=== PATIENT | female | born 1995 | race Caucasian/White ===

== ENCOUNTER 2016-11-11 17:04 | Emergency (ER) | payer MEDICAID ==
[~2016-11-11] VITALS: Ht 167.6 cm; Wt 61.2 kg
[~2016-11-11 17:04] MED LIST: CEPH-507 PO; FERR325T5 PO; PREN1TAB86 PO
--- OUTSIDE RECORDS SUMMARY | 2016-11-11 17:08 | XMS REPORT | Continuity of Care Document ---
Author Author [facility] Organization [facility] Address Unknown Phone Unavailable Care Team Providers Care Pick Remover Name Role Phone BRYAN DU MD PCP Insurance Providers Payer Name Policy Number Subscriber Name Relationship [facility] [id number] Shayne Crawford Self / Same As Patient Advance Directives Directive Response Recorded Date/Time Advance Directives No 03/15/16 10:09pm Health Care Power of Lapping Machine Operator No 03/15/16 10:09pm Organ Donor No 03/15/16 10:09pm Resuscitation Status Full Code 03/15/16 10:09pm Problems Active Problems Medical Problem Onset Date Status Urinary tract infection Unknown Acute Medications Current Home Medications Medication Dose Units Route Directions Days/Qty Instructions Start Date Vit W-Ca,Fe,Fa(<1 Mg) 1 Each 1 Each Oral Daily 03/15/16 Ferrous Sulfate 325 Mg 325 Mg Oral Twice A Day 03/15/16 Past Home Medications Medication Directions Ordered Status Cephalexin 500 Mg Capsule, 500 Mg Oral Three Times A Day 08/14/15 Discontinued Social History Social History Problem Response Recorded Date/Time Alcohol Use Denies Use 08/14/2015 6:51pm Recreational Drug Use No 08/14/2015 6:51pm Recent Foreign Travel No 03/15/2016 10:12pm Smoking Status Former Smoker 03/15/2016 10:10pm Query Response Start Date Stop Date Smoking Status Former Smoker Hospital Discharge Instructions No hospital discharge instructions. Plan of Care Discharge Date 03/15/16 11:30pm Instructions/Education Provided OB OUTPATIENT DISCHARGE Prescriptions See Medication Section Functional Status No functional status results. Allergies, Adverse Reactions, Alerts No known allergies. Immunizations Name Given Type Tetanus Booster (TDap) Unknown Historical Vital Signs Acute Vital Signs Vital Response Date/Time Temperature (Fahrenheit) 98.3 degrees F (97.6 - 99.5) 03/15/2016 10:02pm Temperature (Calculated Celsius) 36.66322 degrees C (36.4 - 37.5) 03/15/2016 10:02pm Temperature Source Tympanic 03/15/2016 10:02pm Pulse Rate (adult) 71 bpm (60 - 90) 03/15/2016 10:43pm Respiratory Rate 18 bpm (12 - 24) 03/15/2016 10:43pm Blood Pressure 143/72 mm Hg 03/15/2016 10:43pm Blood Pressure Mean 95 mm Hg 03/15/2016 10:43pm Pain Pain Intensity 7 03/15/2016 10:11pm Height (Feet) 5 feet 03/15/2016 10:17pm Height (Inches) 4.00 inches 03/15/2016 10:17pm Height (Calculated Centimeters) 162.819634 cm 03/15/2016 10:17pm Weight (Pounds) 153 pounds 03/15/2016 10:17pm Weight (Ounces) 6.0 oz 03/15/2016 10:17pm Weight (Calculated Grams) 56698.730 gm 03/15/2016 10:17pm Weight (Calculated Kilograms) 69.114317 kilograms 03/15/2016 10:17pm Calculated BMI 26.3 03/15/2016 10:17pm Results Laboratory Results Test Name Result Units Flags Reference Collection Date/Time Result Date/ Time Comments Urine Color YELLOW 03/15/2016 10:00pm 03/15/2016 10:55pm Urine Clarity CLEAR 03/15/2016 10:00pm 03/15/2016 10:55pm Urine pH 7 5-9 03/15/2016 10:00pm 03/15/2016 10:55pm Urine Specific [place] 1.010 * 1.016-1.022 03/15/2016 10:00pm 2015 10:55pm Urine Protein NEGATIVE NEGATIVE 03/15/2016 10:00pm 03/15/2016 10: 55pm Urine Glucose (UA) NEGATIVE NEGATIVE 03/15/2016 10:00pm 03/15/2016 10 :55pm Urine RBC (Auto) NEGATIVE NEGATIVE 03/15/2016 10:00pm 03/15/2016 10: 55pm Urine Ketones NEGATIVE NEGATIVE 03/15/2016 10:00pm 03/15/2016 10: 55pm Urine Nitrite NEGATIVE NEGATIVE 03/15/2016 10:00pm 03/15/2016 10: 55pm Urine Bilirubin NEGATIVE NEGATIVE 03/15/2016 10:00pm 03/15/2016 10: 55pm Urine Urobilinogen NORMAL MG/DL NORMAL 03/15/2016 10:00pm 03/15/2016 10 :55pm Urine Leukocyte Esterase 1+ * NEGATIVE 03/15/2016 10:00pm 03/15/2016 10 :55pm Urine RBC NONE /HPF 03/15/2016 10:00pm 03/15/2016 10:55pm Urine WBC 2-5 /HPF 03/15/2016 10:00pm 03/15/2016 10:55pm Urine Bacteria TRACE /HPF 03/15/2016 10:00pm 03/15/2016 10:55pm Urine Squamous Epithelial Cells 0-2 /HPF 03/15/2016 10:00pm 2015 10:55pm Urine Crystals PRESENT /LPF * 03/15/2016 10:00pm 03/15/2016 10:55pm Urine Amorphous Sediment FEW HAN PHOSPHATE /LPF * 03/15/2016 10:00pm 03/15/2016 10:55pm Urine Casts NONE /LPF 03/15/2016 10:00pm 03/15/2016 10:55pm Urine Mucus NEGATIVE /LPF 03/15/2016 10:00pm 03/15/2016 10:55pm Urine Culture Indicated NO 03/15/2016 10:00pm 03/15/2016 10:55pm Procedures No known history of procedures. Encounters Encounter Location Arrival/Admit Date Discharge/Depart Date Attending Provider Departed Clinic [facility] 03/15/16 9:48pm 03/15/16 11: 30pm CURRY CASTRO MD
[2016-11-11 17:58] LABS: BILIRUBIN,URINE NEGATIVE (NEGATIVE); KETONES,URINE NEGATIVE (NEGATIVE); LEUKOCYTE ESTERASE ,URINE NEGATIVE (NEGATIVE); NITRITE,URINE NEGATIVE (NEGATIVE); PH,URINE 8 (5-9); PROTEIN,URINE NEGATIVE (NEGATIVE); UROBILINOGEN,URINE NORMAL (NORMAL)
[2016-11-11] MEDS ORDERED: NS IV 500 ML 500 ML IV ONE (18:31)
[2016-11-11] MEDS ORDERED: fentaNYL INJECTION 100 MCG/2 ML AMP IVP ONE (18:45)
[2016-11-11 19:03] LABS: BASOPHILS % (AUTO) 0 % (0-10); EOSINOPHILS # (AUTO) 0.1 10^3/uL (0.0-0.3); EOSINOPHILS % (AUTO) 1 % (0-10); LYMPHOCYTES # (AUTO) 1.4 X 10^3 (1.0-4.0); LYMPHOCYTES % (AUTO) 14 % (12-44); MEAN CORPUSCULAR HEMOGLOBIN 28 PG (25-34); MEAN CORPUSCULAR HGB CONC 34 G/DL (32-36); MEAN CORPUSCULAR VOLUME 83 FL (80-99); MONOCYTES # (AUTO) 0.8 X 10^3 (0.0-1.0); MONOCYTES % (AUTO) 8 % (0-12); NEUTROPHILS # (AUTO) 7.8 X 10^3 (1.8-7.8); NEUTROPHILS % (AUTO) 78 % (42-75); PLATELET COUNT 264 10^3/uL (130-400); RED BLOOD COUNT 4.56 10^6/uL (4.35-5.85); RED CELL DISTRIBUTION WIDTH 13.2 % (10.0-14.5)
[2016-11-11 19:24] LABS: ALANINE AMINOTRANSFERASE 13 U/L (0-55); ALBUMIN 4.2 G/DL (3.2-4.5); ANION GAP 9 MMOL/L (5-14); ASPARTATE AMINO TRANSFERASE 14 U/L (5-34); BILIRUBIN,TOTAL 0.4 MG/DL (0.1-1.0); BLOOD UREA NITROGEN 12 MG/DL (7-18); BUN/CREATININE RATIO 16; CALCIUM 8.8 MG/DL (8.5-10.1); CARBON DIOXIDE 21 MMOL/L (21-32); CHLORIDE 108 MMOL/L (98-107); CREATININE SERUM 0.74 MG/DL (0.60-1.30); GFR ESTIMATED > 60; GLUCOSE 95 MG/DL (70-105); MAGNESIUM 2.2 MG/DL (1.8-2.4); POTASSIUM 3.5 MMOL/L (3.6-5.0); SODIUM 138 MMOL/L (135-145)
[2016-11-11 19:26] LABS: ALCOHOL < 10 MG/DL (<10)
--- NOTE | 2016-11-11 20:07 | Diagnostic Imaging Report ---
EXAM: PA chest at 7:50 p.m. INDICATION: Seizure. COMPARISON: There are no prior studies available for comparison. FINDINGS: The heart size is within normal limits. The lungs are clear. There is no evidence of failure, pneumonia or for a pleural effusion. The mediastinum is not widened. The osseous structures are intact. IMPRESSION: There is no evidence for an acute cardiopulmonary abnormality. Dictated by: Dictated on workstation # [id number]
--- NOTE | 2016-11-11 20:09 | Diagnostic Imaging Report ---
EXAMINATION: Right shoulder INDICATION: Shoulder pain Three views were obtained. There is no fracture, dislocation or acute bony abnormality evident. The shoulder joint is fairly well-maintained. The soft tissues are unremarkable. IMPRESSION: There is no evidence for an acute bony abnormality. Dictated by: Dictated on workstation # [id number]
--- NOTE | 2016-11-11 20:17 | Diagnostic Imaging Report ---
PROCEDURE: CT head and CT cervical spine without contrast. TECHNIQUE: Multiple contiguous axial images were obtained through the brain and cervical spine without the use of intravenous contrast. Sagittal and coronal reformations through the cervical spine were then performed. INDICATION: Seizure, head and neck pain. COMPARISON: There are no prior studies available for comparison. CT HEAD: There is no mass, shift of the midline or hemorrhage to suggest an acute intracranial abnormality. The normal tentorial blush is noted. The ventricles are not abnormally dilated. The bone window shows no evidence for a fracture or for a destructive lesion. The sinuses were not visualized in their entirety. Where visualized, the sinuses are clear. However, there does appear to be sclerosis of both mastoid air cells, particularly on the right. This may be a sequela of prior episodes of mastoiditis. Clinical follow up is recommended. The orbits are symmetrical and within normal limits. IMPRESSION: 1. There is no evidence for acute intracranial abnormality. If clinical concern regarding an acute abnormality persists however, then MRI would be recommended for further study. 2. The appearance of the mastoid air cells does suggest previous episodes of mastoiditis. CT CERVICAL SPINE The reconstructed parasagittal images show some straightening of the cervical spine. This may be secondary to muscle spasm and/or positioning. There is no fracture or acute bony abnormality identified. There is no evidence for spinal stenosis or nerve root encroachment. There is no sign of retropharyngeal edema. The thyroid gland is generally unremarkable. The lung apices are clear. IMPRESSION: There is no evidence for an acute bony abnormality of the cervical spine. Dictated by: Dictated on workstation # [id number]
[2016-11-11] MEDS ORDERED: LEVETIRACETAM 500 MG (KEPPRA) TAB PO ONE ×2 (21:00→21:15)
--- NOTE | 2016-11-11 21:09 | ED Neurological Problem ---
General Chief Complaint: Neurological Problems Stated Complaint: SEIZURE Nursing Triage Note: c/o seizure activity. Incident happened approx 1600 today. Pt awake, alert, and active on ER admission. Hx of a seizure approx 3 years ago. Nursing Sepsis Screen: No Definite Risk Source: patient, family, EMS Exam Limitations: no limitations History of Present Illness Time seen by provider: 18:16 Initial Comments This 21-year-old presents to the emergency room with seizure like activity. Patient was at home with her when he heard her screaming. He came into the room where he found her lying on the floor in a rigid posture. She was unresponsive at the time. He reports frothing saliva and blood in her mouth. The altered state and lasted approximately 1-2 minutes. She then became alert with relaxed posture. However, she remained somewhat confused and cognitively sluggish in a post ictal-like state. She is alert and oriented upon presentation to the emergency room. Patient reports a history of seizure several years ago. She has not taken any seizure medication in about 3 years and has not had a seizure during that time. She complains of headache, left leg pain, and right arm pain. Her most significant pain is in the right shoulder. She has previously seen a neurologist and stopped taking anti- seizure medication at her physician's direction. She does not recall the name of her neurologist but she sees Dr. Du as her primary care provider. She denies or any recent illness. Allergies and Home Medications Allergies Coded Allergies: No Known Drug Allergies (Unverified , 08/14/15) Home Medications Ferrous Sulfate 325 Mg Tablet. 325 MG PO BID (Reported) Levetiracetam 500 Mg Tablet #30 500 MG PO BID Prescribed by: JING MANCILLA on 11/12/16 0658 Vit W-Ca,Fe,FA(<1 mg) 1 Each Tablet 1 EACH PO DAILY (Reported) Constitutional: no symptoms reported Eyes: No Symptoms Reported Ears, Nose, Mouth, Throat: see HPI Respiratory: no symptoms reported Cardiovascular: no symptoms reported Gastrointestinal: no symptoms reported Genitourinary: no symptoms reported : No Musculoskeletal: see HPI Skin: no symptoms reported Psychiatric/Neurological: See HPI Endocrine: No Symptoms Reported Past Zgvyhjx-Sqkzar-Myevbk Hx Patient Social History Alcohol Use: Denies Use Recreational Drug Use: No Smoking Status: Former Smoker Recent Foreign Travel: No Contact w/Someone Who Travel: No Recent Infectious Disease Expo: No Recent Hopitalizations: No Physical Abuse Screen: No Sexual Abuse: No Immunizations Up To Date Tetanus Booster (TDap): Unknown Surgeries HX Surgeries: No Respiratory Hx Respiratory Disorders: No Cardiovascular Hx Cardiac Disorders: Yes Cardiac Disorders: Hypertension Neurological Hx Neurological Disorders: No Reproductive System Hx Reproductive Disorders: No Genitourinary Hx Genitourinary Disorders: No Gastrointestinal Hx Gastrointestinal Disorders: No Musculoskeletal Hx Musculoskeletal Disorders: No Endocrine Hx Endocrine Disorders: No HEENT HX ENT Disorders: No Cancer Hx Cancer: No Psychosocial Hx Psychiatric Problems: No Integumentary HX Skin/Integumentary Disorder: No Blood Transfusions Hx Blood Disorders: No Adverse Reaction to a Blood Tr: No Family Medical History Significant Family History: No Pertinent Family Hx Family Medial History: Patient reports no known family medical history. Physical Exam Vital Signs Vital Sign - Last 12Hours 11/11/16 11/11/16 17:37 21:17 Temp 98.1 Pulse 70 Resp 17 B/P 130/95 Pulse Ox 100 O2 Delivery Room Air Capillary Refill : Less Than 3 Seconds General Appearance: WD/WN no apparent distress HEENT: PERRL/EOMI normal ENT inspection TMs normal other (Poor dentition with fractured or decayed teeth) Neck: non-tender full range of motion supple normal inspection Respiratory: lungs clear normal breath sounds no respiratory distress no accessory muscle use Cardiovascular: regular rate, rhythm no edema no murmur Gastrointestinal: normal bowel sounds non tender soft Extremities: normal inspection no pedal edema 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 as 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 no motor/sensory deficits alert normal mood/affect oriented x 3 Crainal Nerves: normal hearing normal speech PERRL Coordination/Gait: normal finger to nose Motor/Sensory: no motor deficit no sensory deficit Skin: normal color warm/dry Progress/Results/Core Measures Results/Orders Lab Results Laboratory Tests Test 11/11/16 17:35 11/11/16 18:50 Range/Units Ur Tricyclic Antidepressants Screen NEGATIVE NEGATIVE Urine Amorphous Sediment MOD HAN PHOSPHATE H /LPF Urine Amphetamines Screen NEGATIVE NEGATIVE Urine Bacteria FEW H /HPF Urine Barbiturates Screen NEGATIVE NEGATIVE Urine Benzodiazepines Screen NEGATIVE NEGATIVE Urine Bilirubin NEGATIVE NEGATIVE Urine Cannabinoids Screen NEGATIVE NEGATIVE Urine Casts NONE /LPF Urine Clarity VERY CLOUDY H Urine Cocaine Screen NEGATIVE NEGATIVE Urine Color YELLOW Urine Crystals PRESENT H /LPF Urine Culture Indicated NO Urine Glucose (UA) NEGATIVE NEGATIVE Urine Ketones NEGATIVE NEGATIVE Urine Leukocyte Esterase NEGATIVE NEGATIVE Urine Methadone Screen NEGATIVE NEGATIVE Urine Methamphetamines Screen NEGATIVE NEGATIVE Urine Mucus NEGATIVE /LPF Urine Nitrite NEGATIVE NEGATIVE Urine Opiates Screen NEGATIVE NEGATIVE Urine Oxycodone Screen NEGATIVE NEGATIVE Urine Phencyclidine Screen NEGATIVE NEGATIVE Urine Propoxyphene Screen NEGATIVE NEGATIVE Urine Protein NEGATIVE NEGATIVE Urine RBC NONE /HPF Urine RBC (Auto) NEGATIVE NEGATIVE Urine Specific [place] 1.015 L 1.016-1.022 Urine Squamous Epithelial Cells 5-10 /HPF Urine Urobilinogen NORMAL NORMAL MG/DL Urine WBC NONE /HPF Urine pH 8 5-9 Alanine Aminotransferase (ALT/SGPT) 13 0-55 U/L Albumin 4.2 3.2-4.5 G/DL Alkaline Phosphatase 37 L 40-136 U/L Anion Gap 9 5-14 MMOL/L Aspartate Amino Transf (AST/SGOT) 14 5-34 U/L BUN/Creatinine Ratio 16 Basophils # (Auto) 0.0 0.0-0.1 10^3/uL Basophils (%) (Auto) 0 0-10 % Blood Urea Nitrogen 12 7-18 MG/DL Calcium Level 8.8 8.5-10.1 MG/DL Carbon Dioxide Level 21 21-32 MMOL/L Chloride Level 108 H 98-107 MMOL/L Creatinine 0.74 0.60-1.30 MG/DL Eosinophils # (Auto) 0.1 0.0-0.3 10^3/uL Eosinophils (%) (Auto) 1 0-10 % Estimat Glomerular Filtration Rate > 60 Glucose Level 95 70-105 MG/DL Hematocrit 38 35-52 % Hemoglobin 12.9 11.5-16.0 G/DL Lymphocytes # (Auto) 1.4 1.0-4.0 X 10^3 Lymphocytes (%) (Auto) 14 12-44 % Magnesium Level 2.2 1.8-2.4 MG/DL Mean Corpuscular Hemoglobin 28 25-34 PG Mean Corpuscular Hemoglobin Concent 34 32-36 G/DL Mean Corpuscular Volume 83 80-99 FL Mean Platelet Volume 11.0 H 7.4-10.4 FL Monocytes # (Auto) 0.8 0.0-1.0 X 10^3 Monocytes (%) (Auto) 8 0-12 % Neutrophils # (Auto) 7.8 1.8-7.8 X 10^3 Neutrophils (%) (Auto) 78 H 42-75 % Platelet Count 264 130-400 10^3/uL Potassium Level 3.5 L 3.6-5.0 MMOL/L Red Blood Count 4.56 4.35-5.85 10^6/uL Red Cell Distribution Width 13.2 10.0-14.5 % Serum Alcohol < 10 <10 MG/DL Serum Test, Qualitative NEGATIVE NEGATIVE Sodium Level 138 135-145 MMOL/L TSH Sharon Testing 1.44 0.35-4.94 UIU/ML Total Bilirubin 0.4 0.1-1.0 MG/DL Total Protein 7.0 6.4-8.2 G/DL White Blood Count 10.0 4.3-11.0 10^3/uL My Orders Orders-JING GARCES MD Ct Head/Cervical Spine Wo (11/11/16 18:31) Monitor-Rhythm Ecg Trace Only (11/11/16 18:31) Chest 1 View, Ap/Pa Only (11/11/16 18:31) Shoulder, Right, 3 Views (11/11/16 18:31) Alcohol (11/11/16 18:31) Cbc With Automated Diff (11/11/16 18:31) Comprehensive Metabolic Panel (11/11/16 18:31) Hcg,Qualitative Serum (11/11/16 18:31) Magnesium (11/11/16 18:31) Thyroid Analyzer (11/11/16 18:31) Saline Lock/Iv-Start (11/11/16 18:31) Ns Iv 500 Ml (Sodium Chloride 0.9%) (11/11/16 18:31) Fentanyl Injection (Sublimaze Injection (11/11/16 18:45) Ketorolac Injection (Toradol Injection) (11/11/16 21:15) Levetiracetam Tablet (Keppra Tablet) (11/11/16 21:15) Levetiracetam Tablet (Keppra Tablet) (11/11/16 21:00) Medications Given in ED Current Medications Medications Dose Ordered Sig/Miguel Route Start Time Stop Time Status Last Admin Dose Admin Ketorolac Tromethamine 30 mg ONCE ONCE IVP 11/11/16 21:15 11/11/16 21:16 DC 1/9/17 21:11 30 MG Levetiracetam 500 mg ONCE ONCE PO 11/11/16 21:15 11/11/16 21:16 DC 11/11/16 21:10 500 MG Vital Signs/I&O Vital Sign - Last 12Hours 11/11/16 11/11/16 11/11/16 17:37 18:54 21:17 Temp 98.1 98.1 98.1 Pulse 70 70 Resp 17 B/P 130/95 Pulse Ox 100 O2 Delivery Room Air Room Air Blood Pressure Mean: 107 Progress Note : Progress Note Patient seen and examined. IV fluids, imaging, and fentanyl were ordered. Imaging revealed no bony injuries or intracranial injury. Labs were relatively unremarkable. Case was reviewed with Dr. Du who would like for the patient to be started on Keppra. The first dose of Keppra was administered in the ER. Toradol was administered for additional pain relief. Diagnostic Imaging Diagonstic Imaging: Xray Plain Films/CT/US/NM/MRI: other (Right shoulder) Comments Right shoulder x-ray viewed by me and report reviewed. See report below: NAME: SHAYNE ONEIL MED REC#: [id number] PT STATUS: DEP ER : 1995 PHYSICIAN: JING GARCES MD ADMIT DATE: 11/11/16/ER Signed Date of Exam: 11/11/16 SHOULDER, RIGHT, 3 VIEWS EXAMINATION: Right shoulder INDICATION: Shoulder pain Three views were obtained. There is no fracture, dislocation or acute bony abnormality evident. The shoulder joint is fairly well-maintained. The soft tissues are unremarkable. IMPRESSION: There is no evidence for an acute bony abnormality. Dictated by: Dictated on workstation # [id number] Dict: 11/11/162004 Trans: 11/11/16 2247 GLENDY [id number] Interpreted by: THAD TERESA MD Electronically signed by:THAD TERESA MD 11/11/16 8208 Diagonstic Imaging: CT Plain Films/CT/US/NM/MRI: c-spine, head Comments NAME: SHAYNE ONEIL MED REC#: [id number] PT STATUS: DEP ER : 1995 PHYSICIAN: JING GARCES MD ADMIT DATE: 11/11/16/ER Signed Date of Exam: 11/11/16 CT HEAD/CERVICAL SPINE WO PROCEDURE: CT head and CT cervical spine without contrast. TECHNIQUE: Multiple contiguous axial images were obtained through the brain and cervical spine without the use of intravenous contrast. Sagittal and coronal reformations through the cervical spine were then performed. INDICATION: Seizure, head and neck pain. COMPARISON: There are no prior studies available for comparison. CT HEAD: There is no mass, shift of the midline or hemorrhage to suggest an acute intracranial abnormality. The normal tentorial blush is noted. The ventricles are not abnormally dilated. The bone window shows no evidence for a fracture or for a destructive lesion. The sinuses were not visualized in their entirety. Where visualized, the sinuses are clear. However, there does appear to be sclerosis of both mastoid air cells, particularly on the right. This may be a sequela of prior episodes of mastoiditis. Clinical follow up is recommended. The orbits are symmetrical and within normal limits. IMPRESSION: 1. There is no evidence for acute intracranial abnormality. If clinical concern regarding an acute abnormality persists however, then MRI would be recommended for further study. 2. The appearance of the mastoid air cells does suggest previous episodes of mastoiditis. CT CERVICAL SPINE The reconstructed parasagittal images show some straightening of the cervical spine. This may be secondary to muscle spasm and/or positioning. There is no fracture or acute bony abnormality identified. There is no evidence for spinal stenosis or nerve root encroachment. There is no sign of retropharyngeal edema. The thyroid gland is generally unremarkable. The lung apices are clear. IMPRESSION: There is no evidence for an acute bony abnormality of the cervical spine. Dictated by: Dictated on workstation # [id number] Dict: 11/11/161958 Trans: 11/11/162237 [facility] [id number] Interpreted by: THAD TERESA MD Electronically signed by:THAD TERESA MD 11/11/167 Diagonstic Imaging: Xray Plain Films/CT/US/NM/MRI: chest Comments NAME: SHAYNE ONEIL MED REC#: [id number] PT STATUS: DEP ER : 1995 PHYSICIAN: JING GARCES MD ADMIT DATE: 11/11/16/ER Signed Date of Exam: 11/11/16 CHEST 1 VIEW, AP/PA ONLY EXAM: PA chest at 7:50 p.m. INDICATION: Seizure. COMPARISON: There are no prior studies available for comparison. FINDINGS: The heart size is within normal limits. The lungs are clear. There is no evidence of failure, pneumonia or for a pleural effusion. The mediastinum is not widened. The osseous structures are intact. IMPRESSION: There is no evidence for an acute cardiopulmonary abnormality. Dictated by: Dictated on workstation # [id number] Dict: 11/11/162003 Trans: 11/11/162222 [facility] [id number] Interpreted by: THAD TERESA MD Electronically signed by:THAD TERESA MD 11/11/162224 Departure Impression Impression: Primary Impression: Seizure Additional Impression: Contusion of right shoulder Qualified Code: S40.011A - Contusion of right shoulder, initial encounter Disposition: HOME, SELF-CARE Condition: Improved Departure-Patient Inst. Decision time for Depature: 21:07 Referrals: BRYAN DU MD (PCP/Family) Primary Care Physician Patient Instructions: Seizures Add. Discharge Instructions: Stay well-hydrated and eat a well-balanced diet. Follow-up with Dr. Du as soon as possible. Use your Keppra as prescribed. Return to emergency room if you have worsening symptoms. For pain you may take Tylenol up to 1000 mg every 6 hours as needed and/or ibuprofen up to 600 mg every 6 hours as needed. All discharge instructions reviewed with patient and/or family. Voiced understanding. Scripts Levetiracetam (Keppra)500 Mg [id number] Mg PO BID #30 TAB Prov:JING GARCES MD 11/12/16 Copy Copies To 1: BRYAN DU MD, JOSHUA T MD Nov 11, 2016 21:08 Scripts Levetiracetam (Keppra)500 Mg [id number] Mg PO BID #30 TAB Prov:JING GARCES MD 11/12/16 JING GARCES MD Nov 11, 2016 21:08
[2016-11-11] MEDS ORDERED: KETOROLAC 30 MG/ML VIAL IVP ONE (21:15)
[2016-11-11 21:17] VITALS: BP 130/95
[2016-11-12] MEDS ORDERED: LEVE500T99 PO (06:58)
== END 2016-11-11 21:18 | disposition home or self-care (01) ==
LOC: EDUNIT# 17:04 → ER 17:05
DX: G40.909 Epilepsy, unspecified, not intractable, without status epilepticus (principal); S40.011A Contusion of right shoulder, initial encounter; W18.30XA Fall on same level, unspecified, initial encounter; Y92.009 Unspecified place in unspecified non-institutional (private) residence as the place of occurrence of the external cause; Y99.8 Other external cause status
CPT/HCPCS: 36415; 70450; 71010; 72125; 73030; 80053; 80306; 80320; 81000; 83735; 84443; 84703; 85025; 93041; 96361; 96374; 96375

== ENCOUNTER → 2016-11-22 | Outpatient (CLI) | payer MEDICAID ==
[~2016-11-22] MED LIST changes: +LEVE500T99 PO
--- OUTSIDE RECORDS SUMMARY | 2016-11-22 07:58 | XMS REPORT | Continuity of Care Document ---
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 Name Role Phone BRYAN DU MD PCP Insurance Providers Payer Name Policy Number Subscriber Name Relationship [facility] [id number] Shayne Crawford Self / Same As Patient Advance Directives Directive Response Recorded Date/Time Advance Directives No 03/15/16 10:09pm Health Care Power of Millinery Designer No 03/15/16 10:09pm Organ Donor No 03/15/16 [...] - 99.5) 03/15/2016 10:02pm Temperature (Calculated Celsius) 36.87018 degrees C (36.4 - 37.5) 03/15/2016 10:02pm [...] 4.00 inches 03/15/2016 10:17pm Height (Calculated Centimeters) 162.401849 cm 03/15/2016 10:17pm Weight (Pounds) 153 pounds 03/15/2016 10:17pm Weight (Ounces) 6.0 oz 03/15/2016 10:17pm Weight (Calculated Grams) 41516.730 gm 03/15/2016 10:17pm Weight (Calculated Kilograms) 69.432359 kilograms 03/15/2016 10:17pm Calculated BMI 26.3 03/15/2016 10:17pm Results Laboratory Results Test Name Result Units Flags Reference Collection Date/Time Result Date/ Time Comments Urine Color YELLOW 03/15/2016 10:00pm 03/15/2016 10:55pm Urine Clarity CLEAR 03/15/2016 10:00pm 03/15/2016 10:55pm Urine pH 7 5-9 03/15/2016 10:00pm 03/15/2016 10:55pm Urine Specific [place] 1.010 * 1.016-1.022 03/15/2016 10:00pm 2015 10:55pm [...] Discharge/Depart Date Attending Provider Departed Clinic [facility] 03/15/16 9:48pm 03/15/16 11: 30pm CURRY CASTRO MD
--- NOTE | 2016-12-06 10:11 | ELECTROENCEPHALOPATHY REPORT ---
PROCEDURE PHYSICIAN: HENRY ACOSTA DATE OF PROCEDURE: 11/22/2016 Ms. Yanique Crawford is a 21-year-old female with seizure disorder. First seizure was 3 years ago. The last event the patient does not remember. She was walking outside, talked to the boyfriend. Went back to home and her boyfriend heard a scream. He ran inside and the patient was lying on the floor in the kitchen. The patient woke up in the hospital. The background rhythm consisted of 10 Hz, 60 to 85 microvolts in amplitude, bilaterally symmetrical over the vertex region which was reactive to eye opening. Intermix was diffuse spike and slow wave activity, 3 Hz in frequency, more prominent in the frontal lobes lasting up to 1.5 seconds. The patient was awake, drowsy and asleep during this recording. Hyperventilation was performed and there was no build-up of diffuse or focal slow wave activity. Intermittent photic stimulation was done at various flash frequencies and no photic driving response was seen. IMPRESSION: This EEG is abnormal in awake and sleepy states. The epileptiform activity described above is suggestive of generalized seizure disorder, most likely atypical absence seizures. Clinical correlation is suggested. Job ID: [id number] Dictated Date: 12/05/2016 15:34:07 Hospice Bereavement Coordinator Date: 12/06/2016 10:06:55 / jacky
== END ==
LOC: RT 07:55
PROVIDERS: ATTEND Family Medicine
DX: R56.9 Unspecified convulsions (principal)
CPT/HCPCS: 95819

== ENCOUNTER → 2017-09-01 | Outpatient (CLI) | payer MEDICAID ==
--- NOTE | 2017-09-01 14:21 | Diagnostic Imaging Report ---
First trimester OB ultrasound. INDICATION: Dating. FINDINGS: There is a normal-appearing single intrauterine . An embryo is seen with cardiac activity at 163 beats per minute. The crown-rump length is at 7 weeks and 5 days. LEANDRA is 04/15/18. The right ovary appears unremarkable. The left ovary is seen.. IMPRESSION: Live single intrauterine . Dictated by: Dictated on workstation # [id number]
== END ==
LOC: RAD 13:25
PROVIDERS: ATTEND Family Medicine
DX: Z36.87 Encounter for antenatal screening for uncertain dates (principal); Z3A.01 Less than 8 weeks gestation of pregnancy
CPT/HCPCS: 76801

== ENCOUNTER 2017-10-23 20:08 | Emergency (ER) | payer MEDICAID ==
[~2017-10-23] VITALS: Ht 160 cm; Wt 54.4 kg
[2017-10-23] MEDS ORDERED: fentaNYL INJECTION 100 MCG/2 ML AMP IVP ONE (21:00)
[2017-10-23 21:03] LABS: BASOPHILS % (AUTO) 0 % (0-10); EOSINOPHILS # (AUTO) 0.1 10^3/uL (0.0-0.3); EOSINOPHILS % (AUTO) 1 % (0-10); LYMPHOCYTES # (AUTO) 2.6 X 10^3 (1.0-4.0); LYMPHOCYTES % (AUTO) 23 % (12-44); MEAN CORPUSCULAR HEMOGLOBIN 31 PG (25-34); MEAN CORPUSCULAR HGB CONC 35 G/DL (32-36); MEAN CORPUSCULAR VOLUME 87 FL (80-99); MEAN PLATELET VOLUME 10.9 FL (7.4-10.4); MONOCYTES # (AUTO) 0.9 X 10^3 (0.0-1.0); MONOCYTES % (AUTO) 8 % (0-12); NEUTROPHILS % (AUTO) 68 % (42-75); PLATELET COUNT 245 10^3/uL (130-400); RED BLOOD COUNT 4.01 10^6/uL (4.35-5.85); RED CELL DISTRIBUTION WIDTH 13.3 % (10.0-14.5); WHITE BLOOD COUNT 11.7 10^3/uL (4.3-11.0)
[2017-10-23 21:03] LABS: BILIRUBIN,URINE NEGATIVE (NEGATIVE); KETONES,URINE NEGATIVE (NEGATIVE); LEUKOCYTE ESTERASE ,URINE 1+ (NEGATIVE); NITRITE,URINE NEGATIVE (NEGATIVE); PH,URINE 8 (5-9); PROTEIN,URINE NEGATIVE (NEGATIVE); UROBILINOGEN,URINE NORMAL (NORMAL)
[2017-10-23 21:10] LABS: WBC,URINE 0-2 /HPF
--- NOTE | 2017-10-23 21:10 | Diagnostic Imaging Report ---
PROCEDURE: CT head without contrast. TECHNIQUE: Multiple contiguous axial images were obtained through the brain without the use of intravenous contrast. INDICATION: Diplopia. The study compared 11/11/2016 FINDINGS: There is no intracranial hemorrhage. There is no hydrocephalus. No focal or generalized cerebral edema. The basilar cisterns are patent, the sulci are non-effaced. The orbits, sinuses, and calvarium appeared nonacute. No mass or mass effect is evident. IMPRESSION: Unremarkable CT head. Dictated by: Dictated on workstation # [id number]
[2017-10-23 21:13] LABS: ALANINE AMINOTRANSFERASE 7 U/L (0-55); ALBUMIN 3.6 GM/DL (3.2-4.5); ALCOHOL < 10 MG/DL (<10); ANION GAP 9 MMOL/L (5-14); ASPARTATE AMINO TRANSFERASE 11 U/L (5-34); BILIRUBIN,TOTAL 0.3 MG/DL (0.1-1.0); BLOOD UREA NITROGEN 6 MG/DL (7-18); BUN/CREATININE RATIO 11; CALCIUM 8.5 MG/DL (8.5-10.1); CARBON DIOXIDE 22 MMOL/L (21-32); CHLORIDE 107 MMOL/L (98-107); CREATININE SERUM 0.55 MG/DL (0.60-1.30); GFR ESTIMATED > 60; GLUCOSE 86 MG/DL (70-105); MAGNESIUM 1.7 MG/DL (1.8-2.4); POTASSIUM 3.6 MMOL/L (3.6-5.0); SODIUM 138 MMOL/L (135-145); TOTAL PROTEIN 6.7 GM/DL (6.4-8.2)
[2017-10-23] MEDS ORDERED: KETOROLAC 30 MG/ML VIAL IVP ONE (21:30)
--- NOTE | 2017-10-23 21:56 | ED Headache ---
General Chief Complaint: Head/Cervical Problems Stated Complaint: HEADACHE,DIZZINESS,15WKS PREG Nursing Triage Note: Pt c/o MORALES, blurred vision, and nausea x 1 day. Nursing Sepsis Screen: No Definite Risk Source: patient Exam Limitations: no limitations History of Present Illness Time seen by provider: 20:37 Initial Comments This 22-year-old young lady at approximately 15 weeks gestational age presents to the emergency room with intense left-sided headache and left-sided diplopia this started around 07:00. She also complains of some disequilibrium when walking. She did walk into the exam room on her own power. She denies any history of similar headaches. Headache actually started yesterday but worsened today. The diplopia started this morning. She took ibuprofen 200 mg at home which was not helpful. She reports her pain is 9/10. She has history of seizure disorder for which she takes Keppra. Dr. Du is her primary care provider. Allergies and Home Medications Allergies Coded Allergies: No Known Drug Allergies (Unverified , 08/14/15) Home Medications Levetiracetam 500 Mg Tablet, 500 MG PO BID, #30 Prescribed by: JING MANCILLA on 11/12/16 0658 Constitutional: no symptoms reported Eyes: See HPI Ears, Nose, Mouth, Throat: no symptoms reported Respiratory: no symptoms reported Cardiovascular: no symptoms reported Gastrointestinal: no symptoms reported Genitourinary: no symptoms reported : Yes Expected Date of Delivery: Apr 15, 2018 Musculoskeletal: no symptoms reported Skin: no symptoms reported Psychiatric/Neurological: See HPI Past Mhqfpjb-Kzhycc-Fagzmg Hx Patient Social History Alcohol Use: Denies Use Recreational Drug Use: No Smoking Status: Never a Smoker 2nd Hand Smoke Exposure: No Recent Foreign Travel: No Contact w/Someone Who Travel: No Recent Infectious Disease Expo: No Recent Hopitalizations: No Physical Abuse: No Sexual Abuse: No Mistreated: No Fear: No Immunizations Up To Date Tetanus Booster (TDap): Unknown Seasonal Allergies Seasonal Allergies: No Surgeries History of Surgeries: No Respiratory History of Respiratory Disorde: No Cardiovascular History of Cardiac Disorders: Yes Cardiac Disorders: Hypertension Neurological History of Neurological Disord: No Reproductive System : Yes Expected Date of Delivery: Apr 15, 2018 Hx : 4 Hx Para: 2 Hx Reproductive Disorders: No Genitourinary History of Genitourinary Disor: No Gastrointestinal History of Gastrointestinal Di: No Musculoskeletal History of Musculoskeletal Dis: No Endocrine History of Endocrine Disorders: No HEENT History of HEENT Disorders: No Cancer History of Cancer: No Psychosocial History of Psychiatric Problem: No Suicide Risk Score: 1 Integumentary History of Skin or Integumenta: No Blood Transfusions Adverse Reaction to a Blood Tr: No Family Medical History Significant Family History: No Pertinent Family Hx Family Medial History: Patient reports no known family medical history. Physical Exam Vital Signs Vital Sign - Last 12Hours 10/23/17 20:15 Temp 98.1 Pulse 71 Resp 18 B/P (MAP) 144/94 (111) Pulse Ox 97 O2 Delivery Room Air Capillary Refill : Less Than 3 Seconds General Appearance: WD/WN, no apparent distress HEENT: PERRL/EOMI, normal ENT inspection, TMs normal, pharynx normal, other ( very poor dentition with gingival inflammation) Neck: normal inspection Cardiovascular: regular rate, rhythm, no edema, no murmur Respiratory: lungs clear, normal breath sounds, no respiratory distress, no accessory muscle use Gastrointestinal: normal bowel sounds, non tender, soft, other (appropriately gravid for gestational age) Extremities: normal inspection, no pedal edema Psychiatric: alert Crainal Nerves: normal hearing, normal speech, PERRL, other (states monocular left-sided diplopia. Field of vision appears intact bilaterally when peripheral vision assessed.) Coordination/Gait: normal finger to nose, other (slight disequilibrium with gait prior to treatment) Motor/Sensory: no motor deficit, no sensory deficit Skin: normal color, warm/dry Progress/Results/Core Measures Results/Orders Lab Results Laboratory Tests Test 10/23/17 20:20 10/23/17 20:25 Range/Units White Blood Count 11.7 H 4.3-11.0 10^3/uL Red Blood Count 4.01 L 4.35-5.85 10^6/uL Hemoglobin 12.3 11.5-16.0 G/DL Hematocrit 35 35-52 % Mean Corpuscular Volume 87 80-99 FL Mean Corpuscular Hemoglobin 31 25-34 PG Mean Corpuscular Hemoglobin Concent 35 32-36 G/DL Red Cell Distribution Width 13.3 10.0-14.5 % Platelet Count 245 130-400 10^3/uL Mean Platelet Volume 10.9 H 7.4-10.4 FL Neutrophils (%) (Auto) 68 42-75 % Lymphocytes (%) (Auto) 23 12-44 % Monocytes (%) (Auto) 8 0-12 % Eosinophils (%) (Auto) 1 0-10 % Basophils (%) (Auto) 0 0-10 % Neutrophils # (Auto) 8.0 H 1.8-7.8 X 10^3 Lymphocytes # (Auto) 2.6 1.0-4.0 X 10^3 Monocytes # (Auto) 0.9 0.0-1.0 X 10^3 Eosinophils # (Auto) 0.1 0.0-0.3 10^3/uL Basophils # (Auto) 0.0 0.0-0.1 10^3/uL Sodium Level 138 135-145 MMOL/L Potassium Level 3.6 3.6-5.0 MMOL/L Chloride Level 107 98-107 MMOL/L Carbon Dioxide Level 22 21-32 MMOL/L Anion Gap 9 5-14 MMOL/L Blood Urea Nitrogen 6 L 7-18 MG/DL Creatinine 0.55 L 0.60-1.30 MG/DL Estimat Glomerular Filtration Rate > 60 BUN/Creatinine Ratio 11 Glucose Level 86 70-105 MG/DL Calcium Level 8.5 8.5-10.1 MG/DL Magnesium Level 1.7 L 1.8-2.4 MG/DL Total Bilirubin 0.3 0.1-1.0 MG/DL Aspartate Amino Transf (AST/SGOT) 11 5-34 U/L Alanine Aminotransferase (ALT/SGPT) 7 0-55 U/L Alkaline Phosphatase 37 L 40-136 U/L Total Protein 6.7 6.4-8.2 GM/DL Albumin 3.6 3.2-4.5 GM/DL Serum Alcohol < 10 <10 MG/DL Urine Color YELLOW Urine Clarity CLEAR Urine pH 8 5-9 Urine Specific [place] 1.010 L 1.016-1.022 Urine Protein NEGATIVE NEGATIVE Urine Glucose (UA) NEGATIVE NEGATIVE Urine Ketones NEGATIVE NEGATIVE Urine Nitrite NEGATIVE NEGATIVE Urine Bilirubin NEGATIVE NEGATIVE Urine Urobilinogen NORMAL NORMAL MG/DL Urine Leukocyte Esterase 1+ H NEGATIVE Urine RBC (Auto) NEGATIVE NEGATIVE Urine RBC NONE /HPF Urine WBC 0-2 /HPF Urine Squamous Epithelial Cells 2-5 /HPF Urine Crystals NONE /LPF Urine Bacteria FEW H /HPF Urine Casts NONE /LPF Urine Mucus NEGATIVE /LPF Urine Culture Indicated NO Urine Opiates Screen NEGATIVE NEGATIVE Urine Oxycodone Screen NEGATIVE NEGATIVE Urine Methadone Screen NEGATIVE NEGATIVE Urine Propoxyphene Screen NEGATIVE NEGATIVE Urine Barbiturates Screen NEGATIVE NEGATIVE Ur Tricyclic Antidepressants Screen NEGATIVE NEGATIVE Urine Phencyclidine Screen NEGATIVE NEGATIVE Urine Amphetamines Screen NEGATIVE NEGATIVE Urine Methamphetamines Screen NEGATIVE NEGATIVE Urine Benzodiazepines Screen NEGATIVE NEGATIVE Urine Cocaine Screen NEGATIVE NEGATIVE Urine Cannabinoids Screen NEGATIVE NEGATIVE My Orders Orders - JING GARCES MD Ct Head Wo (10/23/17 20:45) Fentanyl Injection (Sublimaze Injection (10/23/17 21:00) Alcohol (10/23/17 20:49) Cbc With Automated Diff (10/23/17 20:49) Comprehensive Metabolic Panel (10/23/17 20:49) Drug Screen Stat (Urine) (10/23/17 20:49) Magnesium (10/23/17 20:49) Ua Culture If Indicated (10/23/17 20:49) Saline Lock/Iv-Start (10/23/17 20:49) Monitor-Rhythm Ecg Trace Only (10/23/17 20:49) Ketorolac Injection (Toradol Injection) (10/23/17 21:30) Medications Given in ED Current Medications Medications Dose Ordered Sig/Miguel Route Start Time Stop Time Status Last Admin Dose Admin Fentanyl Citrate 50 mcg ONCE ONCE IVP 10/23/17 21:00 10/23/17 21:01 DC 10/23/17 21:01 50 MCG Ketorolac Tromethamine 30 mg ONCE ONCE IVP 10/23/17 21:30 10/23/17 21:31 DC 10/23/17 21:24 30 MG Vital Signs/I&O Vital Sign - Last 12Hours 10/23/17 20:15 Temp 98.1 Pulse 71 Resp 18 B/P (MAP) 144/94 (111) Pulse Ox 97 O2 Delivery Room Air Blood Pressure Mean: 111 Progress Note : Time: 21:52 Progress Note Fentanyl did not seem to improve her pain. Risks and benefits of CT examination reviewed with patient. Workup was unremarkable including CT of the head which was performed with abdominal shielding. Toradol was ordered as a second line of treatment. This resolved her diplopia and improved her headache. Case was reviewed with Dr. Du and Dr. Rios (stroke neurologist at [facility]). Both providers are okay with patient returning home. Dr. Rios recommends performing MR or CT venogram of the head if headache or rebounds to rule out venous thrombosis. Patient was advised of this recommendation. Dr. Du would like her to take only Tylenol for now for headache. Dr. Rios also recommended an eye exam. I also addressed patient's poor dentition. She states she has brushing her teeth and is scheduled to have dental extractions in the near future. Diagnostic Imaging Diagonstic Imaging: CT Plain Films/CT/US/NM/MRI: head Comments CT head viewed by me and report reviewed. See report below: NAME: SHAYNE ONEIL MED REC#: [id number] PT STATUS: REG ER : 1995 PHYSICIAN: JING GARCES MD ADMIT DATE: 10/23/17/ER Signed Date of Exam: 10/23/17 CT HEAD WO PROCEDURE: CT head without contrast. TECHNIQUE: Multiple contiguous axial images were obtained through the brain without the use of intravenous contrast. INDICATION: Diplopia. The study compared 11/11/2016 FINDINGS: There is no intracranial hemorrhage. There is no hydrocephalus. No focal or generalized cerebral edema. The basilar cisterns are patent, the sulci are non-effaced. The orbits, sinuses, and calvarium appeared nonacute. No mass or mass effect is evident. IMPRESSION: Unremarkable CT head. Dictated by: Dictated on workstation # [id number] Dict: 10/23/172100 Trans: 10/23/172209 Interpreted by: JEVON HALLMAN Electronically signed by: JEVON HALLMAN 10/23/172209 Departure Impression Impression: Primary Impression: Left-sided headache Additional Impression: Monocular diplopia Disposition: HOME, SELF-CARE Condition: Improved Departure-Patient Inst. Referrals: BRYAN DU MD (PCP/Family) Primary Care Physician Patient Instructions: Headache, Adult (DC) Add. Discharge Instructions: Drink plenty of clear liquids. You may take Tylenol (acetaminophen) up to 650 mg every 6 hours as needed for pain. Follow-up with Dr. Du as soon as possible. If headache worsens, you may need additional imaging of your head. It is also recommended that you see an eye doctor as soon as possible. Call Dr. Du's office if you need a referral to an eye doctor. All discharge instructions reviewed with patient and/or family. Voiced understanding. Copy Copies To 1: BRYAN UD MD, JOSHUA T MD Oct 23, 2017 21:56
[2017-10-23 22:16] VITALS: BP 130/92
== END 2017-10-23 22:19 | disposition home or self-care (01) ==
LOC: EDUNIT# 20:08 → ER 20:10
DX: O99.352 Diseases of the nervous system complicating pregnancy, second trimester (principal); R51 Headache; G40.909 Epilepsy, unspecified, not intractable, without status epilepticus; O99.89 Other specified diseases and conditions complicating pregnancy, childbirth and the puerperium; H53.2 Diplopia; O16.2 Unspecified maternal hypertension, second trimester; I10 Essential (primary) hypertension; Z3A.15 15 weeks gestation of pregnancy
CPT/HCPCS: 36415; 70450; 80053; 80306; 80320; 81000; 83735; 85025; 93041

== ENCOUNTER → 2017-11-14 | Outpatient (CLI) | payer MEDICAID ==
--- NOTE | 2017-11-14 16:26 | Diagnostic Imaging Report ---
INDICATION: anatomy survey. TECHNIQUE: Multiple real-time grayscale images were obtained over the gravid uterus. COMPARISON: 09/01/2017. FINDINGS: There is a single live intrauterine in variable presentation. The placenta is posteriorly located and is low-lying located within 1.8 cm of the cervix. The amniotic fluid appears visually appropriate. anatomy survey was performed and the following structures are visualized and normal: Cisterna magna, cerebellum, cerebral ventricles, four-chamber heart, umbilical cord insertion, urinary bladder, three-vessel cord, and spine. Biometrical measurements are as follows: Biparietal 3.72 cm, age 17 weeks 3 days. Head circumference 15.06 cm, age 18 weeks 1 days. Abdominal circumference 13.31 cm, age 18 weeks 6 days. Femur length 2.98 cm, age 19 weeks 2 days. Sonographic estimate age: 18 weeks 3 days. Sonographic estimated date of delivery: 04/14/2018. Estimated Weight: 261 gm (+/- 38 gm). LMP percentile: 9%. heart rate: 160 beats per minute. number: 1 of 1. IMPRESSION: 1. Single live intrauterine with normal anatomy survey. 2. Marginal placenta with the inferior aspect of the posteriorly located placenta located 1.8 cm from the cervix. Dictated by: Dictated on workstation # [id number]
== END ==
LOC: RAD 13:07
PROVIDERS: ATTEND Family Medicine
DX: Z36.89 Encounter for other specified antenatal screening (principal); Z3A.18 18 weeks gestation of pregnancy
CPT/HCPCS: 76805

== ENCOUNTER 2018-03-07 14:38 | Outpatient (CLI) | payer MEDICAID ==
[~2018-03-07] VITALS: Ht 160 cm; Wt 54.4 kg
[2018-03-07 15:55] VITALS: BP 130/82
--- NOTE | 2018-03-09 20:06 | Physician Query-Final Dx ---
ROMIE JAY 03/09/18 2006: Clinic Account Progress/Dx Physician Query: Please give diagnosis Date of Service March 07, 2018 at 14:38 BRYAN DU MD 03/10/18 0717: Clinic Account Progress/Dx DIAGNOSIS: Diagnosis 1. Intrauterine at 34 weeks gestation with uterine irritability, nonlabor ROMIE JAY March 09, 2018 20:06 BRYAN DU MD March 10, 2018 07:17
== END 2018-03-07 15:45 | disposition home or self-care (01) ==
LOC: WSo 14:38 → LDRP 14:39 → WSo 15:45
PROVIDERS: ATTEND Family Medicine
DX: O99.89 Other specified diseases and conditions complicating pregnancy, childbirth and the puerperium (principal); N85.9 Noninflammatory disorder of uterus, unspecified; Z3A.34 34 weeks gestation of pregnancy
CPT/HCPCS: 99213

== ENCOUNTER 2018-04-07 14:24 | Outpatient (CLI) | payer MEDICAID ==
[~2018-04-07] VITALS: Ht 160 cm; Wt 63.1 kg
[2018-04-07 14:40] VITALS: BP 158/96
--- NOTE | 2018-04-08 17:23 | Physician Query-Final Dx ---
ROMIE JAY 04/08/18 1723: Clinic Account Progress/Dx Physician Query: Please give diagnosis Date of Service Apr 07, 2018 at 14:24 BRYAN DU MD 04/09/18 0726: Clinic Account Progress/Dx DIAGNOSIS: Diagnosis 1. IUP at 38 weeks, non labor 2. Uterine irritability ROMIE JAY Apr 08, 2018 17:23 BRYAN DU MD Apr 09, 2018 07:26
== END 2018-04-07 17:00 | disposition home or self-care (01) ==
LOC: WSo 14:24 → LDRP 14:25 → WSo 17:00
PROVIDERS: ATTEND Family Medicine
DX: O99.89 Other specified diseases and conditions complicating pregnancy, childbirth and the puerperium (principal); N85.8 Other specified noninflammatory disorders of uterus; Z3A.38 38 weeks gestation of pregnancy
CPT/HCPCS: 99214

== ENCOUNTER 2018-04-14 06:09 | Inpatient (IN) | payer MEDICAID ==
[2018-04-14] VITALS (36 sets, daily range): BP systolic 130–169; BP diastolic 65–116
[~2018-04-14] VITALS: Ht 160 cm; Wt 63.0 kg
[2018-04-14] MEDS ORDERED: OXYTOCIN/NORMAL SALINE 500 ML IV SCH ×2 (06:13→10:28)
[2018-04-14] MEDS ORDERED: D5 LR IV SOLUTION 1,000 ML IV SCH (06:13)
[2018-04-14] MEDS ORDERED: D5 LR IV SOLUTION 1,000 ML IV ONE (06:32)
[2018-04-14 06:39] LABS: BASOPHILS % (AUTO) 0 % (0-10); EOSINOPHILS # (AUTO) 0.1 10^3/uL (0.0-0.3); EOSINOPHILS % (AUTO) 1 % (0-10); HEMATOCRIT 31 % (35-52); LYMPHOCYTES # (AUTO) 1.9 X 10^3 (1.0-4.0); LYMPHOCYTES % (AUTO) 18 % (12-44); MEAN CORPUSCULAR HEMOGLOBIN 24 PG (25-34); MEAN CORPUSCULAR HGB CONC 32 G/DL (32-36); MEAN CORPUSCULAR VOLUME 75 FL (80-99); MEAN PLATELET VOLUME 11.3 FL (7.4-10.4); MONOCYTES # (AUTO) 0.8 X 10^3 (0.0-1.0); MONOCYTES % (AUTO) 8 % (0-12); NEUTROPHILS # (AUTO) 7.8 X 10^3 (1.8-7.8); NEUTROPHILS % (AUTO) 74 % (42-75); PLATELET COUNT 258 10^3/uL (130-400); RED BLOOD COUNT 4.13 10^6/uL (4.35-5.85); RED CELL DISTRIBUTION WIDTH 15.1 % (10.0-14.5); WHITE BLOOD COUNT 10.6 10^3/uL (4.3-11.0)
--- NOTE | 2018-04-14 08:11 | History & Physical-OB ---
OB - Chief Complaint & HPI Date/Time Date of Admission: Date of Admission: Apr 14, 2018 at 06:09 Time Seen by Provider: 07:10 Chief Complaint/History OB-Reason for Admission/Chief: Induction of Labor Hx : 3 Hx Para: 2 Expected Date of Delivery: Apr 15, 2018 Gestational Age in Weeks: 39 Allergies and Home Medications Allergies Coded Allergies: No Known Drug Allergies (Unverified , 08/14/15) Home Medications Levetiracetam 500 Mg Tablet, 500 MG PO BID Prescribed by: JING MANCILLA on 11/12/16 0658 Patient Home Medication List Home Medication List Reviewed: Yes OB - History Hx of Present Care: Yes Ultrasounds: Normal mid trimester US Obstetrical Complications: None Medical Complications: None Obstetrical History Hx Termination: No Hx Stillbirth: Yes (@ 36 weeks, last pregnacies) Delivery History Hx Blood Disorders: No Adverse Rxn to Tranfusion: No Patient Past Medical History No chronic medical problems Social History/Family History Recent Infectious Disease Expo: No Alcohol Use: Denies Use Recreational Drug Use: No 2nd Hand Smoke Exposure: No Immunizations Tetanus Booster (TDap): Unknown OB - Admission Exam Physical Exam Vitals: Vital Signs 04/14/18 06:29 Temp 97.3 Pulse 82 Resp 18 B/P (MAP) 148/87 (107) O2 Delivery Room Air HEENT: Moist Membranes Lungs: Clear Cervical Dilatation: 2cm Effacement: 50% Station: -3 Membranes: Intact (on admit) Amniotic Fluid: Clear Heart Rate: 130's Accelerations: Accelerations Present Short Term Variability: Present Roper Scoring Tool (Modified) Dilation (cm): 1-2cm (1) Effacement (%): 31-51% (1) Descent/Station: -3 (0) Cervix Consistency: Soft (2) Cervix Position: Middle/Mid-Position (1) Roper Score: 7 Labs Laboratory Tests Test 04/14/18 06:20 Range/Units White Blood Count 10.6 4.3-11.0 10^3/uL Red Blood Count 4.13 L 4.35-5.85 10^6/uL Hemoglobin 10.0 L 11.5-16.0 G/DL Hematocrit 31 L 35-52 % Mean Corpuscular Volume 75 L 80-99 FL Mean Corpuscular Hemoglobin 24 L 25-34 PG Mean Corpuscular Hemoglobin Concent 32 32-36 G/DL Red Cell Distribution Width 15.1 H 10.0-14.5 % Platelet Count 258 130-400 10^3/uL Mean Platelet Volume 11.3 H 7.4-10.4 FL Neutrophils (%) (Auto) 74 42-75 % Lymphocytes (%) (Auto) 18 12-44 % Monocytes (%) (Auto) 8 0-12 % Eosinophils (%) (Auto) 1 0-10 % Basophils (%) (Auto) 0 0-10 % Neutrophils # (Auto) 7.8 1.8-7.8 X 10^3 Lymphocytes # (Auto) 1.9 1.0-4.0 X 10^3 Monocytes # (Auto) 0.8 0.0-1.0 X 10^3 Eosinophils # (Auto) 0.1 0.0-0.3 10^3/uL Basophils # (Auto) 0.0 0.0-0.1 10^3/uL OB - Assessment/Plan/Diagnosis Assessment Assessment: induction of labor Admission Dx 1. IUP at term 39 weeks. Admission Status: Inpatient Order (span 2 midnights) Reason for Inpatient Admission: labor managment Plan Plan: Induction Induction Method: AROM Other Plan desires epidural BRYAN DU MD Apr 14, 2018 08:11
[2018-04-14] MEDS ORDERED: SUFENTA 0.6MCG/ML BUPIVA 0.125 100 ML ONE (08:14)
[2018-04-14 09:06] LABS: AMPHETAMINE SCREEN, URINE NEGATIVE (NEGATIVE); BARBITURATE SCREEN URINE NEGATIVE (NEGATIVE); BENZODIAZEPINES SCREEN URINE NEGATIVE (NEGATIVE); CANNABINOID SCREEN, URINE NEGATIVE (NEGATIVE); COCAINE SCREEN URINE NEGATIVE (NEGATIVE); METHADONE STAT NEGATIVE (NEGATIVE); METHAMPHETAMINE SCREEN URINE S NEGATIVE (NEGATIVE); OPIATE SCREEN URINE NEGATIVE (NEGATIVE); OXYCODONE STAT NEGATIVE (NEGATIVE); PROPOXYPHENE STAT NEGATIVE (NEGATIVE); TRICYCLIC ANTIDEPRESSANTS SCRE NEGATIVE (NEGATIVE)
[2018-04-14] MEDS ORDERED: LACTATED RINGERS 1,000 ML IV ONE (09:27)
[2018-04-14] MEDS ORDERED: METOCLOPRAMIDE INJ 10 MG/2 ML (REGLAN) IV PRN (09:30)
[2018-04-14] MEDS ORDERED: LEVETIRACETAM IV SCH (09:30)
[2018-04-14] MEDS ORDERED: ONDANSETRON 4 MG/2 ML (SDV) Z0FRAN IV PRN (09:30)
[2018-04-14] MEDS ORDERED: EPIDURAL (SUFENTA 0.6MCG/ML BUPIVA 0.125%) 100 ML BAG EPI PRN (09:30)
[2018-04-14] MEDS ORDERED: diphenhydrAMINE 50 MG/ML INJ (BENADRYL) IV PRN (09:30)
[2018-04-14] MEDS ORDERED: NALOXONE 0.4 MG/ML 1 ML (NARCAN) VIAL IV PRN ×2 (09:30)
[2018-04-14] MEDS ORDERED: D5W IV SCH (09:30)
[2018-04-14] MEDS ORDERED: MEPIVACAINE (CARBOCAINE) 2% 20 ML VIAL ONE (09:32)
[2018-04-14] MEDS ORDERED: TETANUS,DIPTH,PERTUSS P/F (BOOSTRIX) 0.5 ML VIAL IM ONE (10:30)
[2018-04-14] MEDS ORDERED: WITCH HAZEL(TUCKS) 40 EA JAR TOP PRN (10:30)
[2018-04-14] MEDS ORDERED: MEASLES,MUMPS,RUBELLA 1 EA INJ SQ ONE (10:30)
[2018-04-14] MEDS ORDERED: BENZOCAINE/MENTHOL (DERMOPLAST) 56 ML CAN TP PRN (10:30)
[2018-04-14] MEDS: IBUPROFEN 600 MG (MOTRIN) TAB PO SCH ×2 (10:52→18:43)
--- NOTE | 2018-04-14 10:58 | OB Labor & Delivery Record ---
L&D History Date of Service Date of Service: Apr 14, 2018 History Expected Date of Delivery: Apr 15, 2018 Gestational Age in Weeks: 39 Hx : 3 Hx Para: 2 Complications Events: Routine care Operative Indications (Cesarea: N/A-Vaginal Delivery Intrapartal Events: None L&D Stage1 Stage One Onset of Labor - Date: Apr 14, 2018 Onset of Labor - Time: 07:10 Monitors and Tracing Monitor Mode: Internal Heart Rate: 125 Monitor Accelerations: None Monitor Decelerations: Variable Perpetual Inventory Clerk Variability: Average (6-10) Short Term Variability: Present Presentation: Vertex Vital Signs VS - Last 72 Hours, by Label 04/14/18 06:29 Temp 97.3 Pulse 82 Resp 18 B/P (MAP) 148/87 (107) O2 Delivery Room Air Signs of Distress by FHT Signs of Distress no Rupture of Membranes Spontaneous Ruture of Membrane: No Amniotic Membrane Rupture Time: 07:10 Amniotic Membrane Fluid Desc.: Clear Induction/Anesthesia Epidural Cath Placement - Time: 08:00 L&D Stage2 Stage Two Stage II Date: Apr 14, 2018 Stage II Time: 07:38 Monitors and Tracing Monitor Mode: Internal Heart Rate: 125 Monitor Accelerations: Uniform Monitor Decelerations: Variable Perpetual Inventory Clerk Variability: Average (6-10) Short Term Variability: Present Position: Left Occiput Anterior Signs of Distress by FHT Signs of Distress no Cord Descript/Complications Cord Vessel Description: 3 Vessels Delivery Type Delivery Method: Spontaneous Vaginal Anterior Shoulder: Left Episiotomy/Perineal Laceration Laceraction(s)/Extensions: No Condition of Infant Delivery 1 minute Comment: 8 5 minute Comment: 9 Condition of Infant Condition of : Living Exam: No Observed Abnormalities Resuscitation Resuscitation: N/A - Spontaneous Resp L&D Stage3 Stage Three Stage III Date: Apr 14, 2018 Stage III Time: 07:43 Pictocin Pitocin ml/hr: 125 Placenta Delivery Placenta Delivery: Spontaneous Delivery Summary Summary Estimated blood loss (mL): 200 Condition of Delivery Examined: Cervix Examined Post Hemorrhage: No Intervention Required none BRYAN DU MD Apr 14, 2018 10:58
[2018-04-14] MEDS ORDERED: CATHETER FLUSH 10 ML SYR IV SCH (14:00)
[2018-04-14] MEDS: DOCUSATE SODIUM 100 MG (COLACE) CAP PO SCH (21:12)
[2018-04-14] MEDS: LEVETIRACETAM 500 MG (KEPPRA) TAB PO SCH (21:12)
[2018-04-15 00:45] VITALS: BP 156/93
[2018-04-15] MEDS: IBUPROFEN 600 MG (MOTRIN) TAB PO SCH ×2 (00:55→06:33)
[2018-04-15 05:20] VITALS: BP 150/91
[2018-04-15 06:02] LABS: BASOPHILS % (AUTO) 0 % (0-10); EOSINOPHILS # (AUTO) 0.1 10^3/uL (0.0-0.3); EOSINOPHILS % (AUTO) 1 % (0-10); HEMATOCRIT 29 % (35-52); HEMOGLOBIN 8.9 G/DL (11.5-16.0); LYMPHOCYTES # (AUTO) 2.6 X 10^3 (1.0-4.0); LYMPHOCYTES % (AUTO) 22 % (12-44); MEAN CORPUSCULAR HEMOGLOBIN 24 PG (25-34); MEAN CORPUSCULAR HGB CONC 31 G/DL (32-36); MEAN CORPUSCULAR VOLUME 76 FL (80-99); MONOCYTES % (AUTO) 9 % (0-12); NEUTROPHILS # (AUTO) 7.9 X 10^3 (1.8-7.8); NEUTROPHILS % (AUTO) 68 % (42-75); PLATELET COUNT 240 10^3/uL (130-400); RED BLOOD COUNT 3.74 10^6/uL (4.35-5.85); RED CELL DISTRIBUTION WIDTH 15.3 % (10.0-14.5); WHITE BLOOD COUNT 11.6 10^3/uL (4.3-11.0)
[2018-04-15] MEDS ORDERED: PRENATAL VITAMIN 1 EA TAB PO SCH (07:00)
--- NOTE | 2018-04-15 08:13 | Discharge Summary ---
Diagnosis/Chief Complaint Date of Admission Apr 14, 2018 at 06:09 Date of Discharge April 15, 2018 Discharge Date: Apr 15, 2018 Discharge Time: 08:00 Admission Diagnosis Admission Diagnosis 1. Intrauterine at 39 weeks gestation Discharge Diagnosis 1. Intrauterine at 39 weeks gestation Reason Hospital Visit 22-year-old female admitted on April 14, 2018 for induction of labor at 39 weeks gestation. care was essentially unremarkable. Her EDC is April 21, 2018. Patient was induced at 39 weeks gestation due to favorable cervix. Discharge Summary-OBS Procedures 1. Epidural, per anesthesia 2. Spontaneous vaginal delivery Discharge Physical Examination Allergies: Coded Allergies: No Known Drug Allergies (Unverified , 08/14/15) Vitals & I&Os Vital Signs Date Time Temp Pulse Resp B/P (MAP) Pulse Ox O2 Delivery O2 Flow Rate FiO2 04/15/18 05:20 97.8 65 20 150/91 (110) 97 04/15/18 00:45 Room Air General Appearance: No Acute Distress Respiratory: Clear to Auscultation Cardiovascular: Regular Rate Abdominal: Soft (uterus firm) Hospital Course Following delivery patient underwent routine care orders. She tolerated regular diet and regular activity. She was not noted to be with any shortness of breath or any leg pain. Her hemoglobin day after delivery was 8.9 and his was compared to her initial lab of 10.0. Patient was ready for dismissal during the morning of April 15, 2018 in all questions were answered. Pending Labs Laboratory Tests 04/15/18 05:48: White Blood Count 11.6, Red Blood Count 3.74, Hemoglobin 8.9, Hematocrit 29, Mean Corpuscular Volume 76, Mean Corpuscular Hemoglobin 24, Mean Corpuscular Hemoglobin Concent 31, Red Cell Distribution Width 15.3, Platelet Count 240, Mean Platelet Volume 11.0, Neutrophils (%) (Auto) 68, Lymphocytes (%) (Auto) 22 , Monocytes (%) (Auto) 9, Eosinophils (%) (Auto) 1, Basophils (%) (Auto) 0, Neutrophils # (Auto) 7.9, Lymphocytes # (Auto) 2.6, Monocytes # (Auto) 1.0, Eosinophils # (Auto) 0.1, Basophils # (Auto) 0.0 Discharge Instructions to patient/family Please see electronic discharge instructions given to patient. Discharge Medications Reviewed and agree with Discharge Medication list on patient's Discharge Instruction sheet Clinical Quality Measures DVT/VTE Risk/Contraindication: Risk Factor Score Per Nursin RFS Level Per Nursing on Admit: 1=Low/No VTE PPX BRYAN DU MD Apr 15, 2018 08:13
[2018-04-15] MEDS ORDERED: IBUP-844 PO (08:15)
--- NOTE | 2018-04-15 08:16 | Discharge Inst-Women's Service ---
Discharge Inst-Women's Serv Depart Medication/Instructions New, Converted or Re-Newed RX: Transmitted to Pharmacy Consults/Follow Up Additional Follow Up: Yes (Dr Du in 6 weeks) Activity Driving Instructions: No Driving for 1 Week Nothing Inside Vagina: No [place] (for 6 weeks) Diet Discharge Diet: No Restrictions Return to The Hospital For: as below Symptoms to Report to : Bleeding Excessive, Pain Increased, Fever Over 101 Degrees F, Vaginal Discharge Foul For Any Problems or Questions: Contact Your Physician BRYAN DU MD Apr 15, 2018 08:16
[2018-04-15] MEDS ORDERED: FERROUS SULF 325 MG (IRON) TAB PO SCH (09:00)
--- NOTE | 2018-04-15 09:02 | Anesthesia-Regional Post-Op ---
Regional Patient Condition Mental Status: Alert, Oriented x3 Circulation: Same as Pre-Op Headache: Absent Sensation: Full Recovery Motor Block: Absent Post Op Complications Complications None Follow Up Care/Instructions Patient Instructions None needed. Anesthesia/Patient Condition Patient is doing well, no complaints, stable vital signs, no apparent adverse anesthesia problems. No complications reported per nursing. STEVE YBARRA CRNA Apr 15, 2018 09:01
[2018-04-15] MEDS: DOCUSATE SODIUM 100 MG (COLACE) CAP PO SCH (09:33)
[2018-04-15] MEDS: LEVETIRACETAM 500 MG (KEPPRA) TAB PO SCH (09:33)
[2018-04-15 09:37] VITALS: BP 144/95
== END 2018-04-15 13:00 | disposition home or self-care (01) | DRG 775 ==
LOC: LDRP 06:09
PROVIDERS: ADMIT Family Medicine; ATTEND Family Medicine
PROC: 10E0XZZ Delivery of Products of Conception, External Approach (ICD-10-PCS; principal; 2018-04-14)
PROC: 3E033VJ Introduction of Other Hormone into Peripheral Vein, Percutaneous Approach (ICD-10-PCS; 2018-04-14)
DX: O80 Encounter for full-term uncomplicated delivery (principal); Z37.0 Single live birth; Z3A.39 39 weeks gestation of pregnancy
CPT/HCPCS: 36415; 80306; 85025; 86850; 86900; 86901

== ENCOUNTER 2018-10-21 17:45 | Emergency (ER) | payer MEDICAID ==
[~2018-10-21] VITALS: Ht 160 cm; Wt 53.5 kg
[~2018-10-21 17:45] MED LIST changes: +IBUP-844 PO
[2018-10-21 18:13] LABS: BASOPHILS % (AUTO) 0 % (0-10); EOSINOPHILS # (AUTO) 0.1 10^3/uL (0.0-0.3); EOSINOPHILS % (AUTO) 1 % (0-10); HEMATOCRIT 36 % (35-52); HEMOGLOBIN 11.8 G/DL (11.5-16.0); LYMPHOCYTES # (AUTO) 2.2 X 10^3 (1.0-4.0); LYMPHOCYTES % (AUTO) 19 % (12-44); MEAN CORPUSCULAR HEMOGLOBIN 28 PG (25-34); MEAN CORPUSCULAR HGB CONC 33 G/DL (32-36); MEAN CORPUSCULAR VOLUME 83 FL (80-99); MEAN PLATELET VOLUME 10.3 FL (7.4-10.4); MONOCYTES # (AUTO) 1.2 X 10^3 (0.0-1.0); MONOCYTES % (AUTO) 10 % (0-12); NEUTROPHILS # (AUTO) 8.2 X 10^3 (1.8-7.8); NEUTROPHILS % (AUTO) 70 % (42-75); PLATELET COUNT 326 10^3/uL (130-400); RED BLOOD COUNT 4.28 10^6/uL (4.35-5.85); RED CELL DISTRIBUTION WIDTH 13.7 % (10.0-14.5); WHITE BLOOD COUNT 11.7 10^3/uL (4.3-11.0)
[2018-10-21] MEDS ORDERED: ONDANSETRON 4 MG/2 ML (SDV) Z0FRAN IVP ONE (18:15)
[2018-10-21] MEDS ORDERED: LIDOCAINE 2% VISCOUS 15 ML UDC PO ONE (18:15)
[2018-10-21] MEDS ORDERED: ANTACID SUSP 30 ML UDC (MYLANTA) PO ONE (18:15)
--- NOTE | 2018-10-21 18:15 | ED Chest Pain ---
General Chief Complaint: Chest Pain Stated Complaint: CHEST HURTS,DIZZY,CANT FEEL L LEG Nursing Triage Note: pt presents to er iwth complaint of chest pain, dizziness, and left leg weakness. states it started today. Nursing Sepsis Screen: No Definite Risk Source: patient Exam Limitations: no limitations History of Present Illness Date Seen by Provider: Oct 21, 2018 Time Seen by Provider: 17:50 Initial Comments This 23 year old woman presents to the emergency room with complaints of chest and epigastric pain that started around 14:00. She appears to be hyperventilating and is crying. Pain is worse with movement and palpation. She also says that she felt nauseated and dizzy. She denies any abdominal trauma. She denies . When asked about and her last menstrual period, patient laughed inappropriately. Patient denies any drug or alcohol use. She is brought to the emergency room on the back of a moped by her neighbor. Patient complains that she cannot feel her left lower extremity. However, when I palpated she states that it hurts. These seem to be contradictory claims. Allergies and Home Medications Allergies Coded Allergies: No Known Drug Allergies (Unverified , 08/14/15) Home Medications Ibuprofen 600 Mg Tablet, 600 MG PO Q6H Prescribed by: BRYAN DU on 04/15/18 0815 Levetiracetam 500 Mg Tablet, 500 MG PO BID Prescribed by: JING MANCILLA on 11/12/16 0658 Patient Home Medication List Home Medication List Reviewed: Yes Review of Systems Review of Systems Constitutional: no symptoms reported EENTM: No Symptoms Reported Respiratory: No Symptoms Reported Cardiovascular: See HPI Gastrointestinal: See HPI Genitourinary: No Symptoms Reported Musculoskeletal: no symptoms reported Skin: no symptoms reported Psychiatric/Neurological: See HPI Endocrine: No Symptoms Reported Past Exbkbsz-Cfiare-Gcicdy Hx Past Med/Social Hx: Reviewed Nursing Past Med/Soc Hx Patient Social History Alcohol Use: Denies Use Recreational Drug Use: No Smoking Status: Current Everyday Smoker 2nd Hand Smoke Exposure: No Recent Foreign Travel: No Contact w/Someone Who Travel: No Recent Infectious Disease Expo: No Recent Hopitalizations: No Immunizations Up To Date Tetanus Booster (TDap): Unknown Seasonal Allergies Seasonal Allergies: No Past Medical History Surgeries: No Respiratory: No Cardiac: Yes Hypertension Neurological: Yes Seizure Disorder Reproductive Disorders: No Genitourinary: No Gastrointestinal: No Musculoskeletal: No Endocrine: No HEENT: No Cancer: No Psychosocial: No Integumentary: No Blood Disorders: No Adverse Reaction/Blood Tranf: No Family Medical History Patient reports no known family medical history. No Pertinent Family Hx Physical Exam Vital Signs Vital Signs - First Documented 10/21/18 17:53 Temp 99.5 Pulse 68 Resp 20 B/P (MAP) 158/91 (113) Pulse Ox 100 O2 Delivery Room Air Capillary Refill : Less Than 3 Seconds Height, Weight, BMI Height: 5'3.00" Weight: 118lbs. 0.0oz. 53.951818nw; 24.6 BMI Method:Stated General Appearance: WD/WN, Moderate Distress, Thin HEENT: PERRL/EOMI, Normal ENT Inspection, Other (extensive dental decay) Neck: Normal Inspection Respiratory: Lungs Clear, Normal Breath Sounds, No Accessory Muscle Use, No Respiratory Distress, Other (anterior chest tender to palpation) Cardiovascular: Regular Rate, Rhythm, No Edema, No Murmur Gastrointestinal: Normal Bowel Sounds, Soft, Tenderness (epigastrium) Extremity: Normal Inspection, No Pedal Edema, Other (tenderness of the left foot) Neurologic/Psychiatric: Alert, Oriented x3, No Motor/Sensory Deficits, pan devulcanizer II- XII Norm as Tested, Other (patient is hysterical and crying.) Skin: Normal Color, Warm/Dry Progress/Results/Core Measures Results/Orders Lab Results Laboratory Tests Test 10/21/18 18:07 10/21/18 18:15 Range/Units White Blood Count 11.7 H 4.3-11.0 10^3/uL Red Blood Count 4.28 L 4.35-5.85 10^6/uL Hemoglobin 11.8 11.5-16.0 G/DL Hematocrit 36 35-52 % Mean Corpuscular Volume 83 80-99 FL Mean Corpuscular Hemoglobin 28 25-34 PG Mean Corpuscular Hemoglobin Concent 33 32-36 G/DL Red Cell Distribution Width 13.7 10.0-14.5 % Platelet Count 326 130-400 10^3/uL Mean Platelet Volume 10.3 7.4-10.4 FL Neutrophils (%) (Auto) 70 42-75 % Lymphocytes (%) (Auto) 19 12-44 % Monocytes (%) (Auto) 10 0-12 % Eosinophils (%) (Auto) 1 0-10 % Basophils (%) (Auto) 0 0-10 % Neutrophils # (Auto) 8.2 H 1.8-7.8 X 10^3 Lymphocytes # (Auto) 2.2 1.0-4.0 X 10^3 Monocytes # (Auto) 1.2 H 0.0-1.0 X 10^3 Eosinophils # (Auto) 0.1 0.0-0.3 10^3/uL Basophils # (Auto) 0.0 0.0-0.1 10^3/uL Prothrombin Time 13.8 12.2-14.7 SEC INR Comment 1.1 0.8-1.4 Activated Partial Thromboplast Time 30 24-35 SEC D-Dimer 0.24 0.00-0.49 UG/ML Sodium Level 138 135-145 MMOL/L Potassium Level 3.0 L 3.6-5.0 MMOL/L Chloride Level 107 98-107 MMOL/L Carbon Dioxide Level 22 21-32 MMOL/L Anion Gap 9 5-14 MMOL/L Blood Urea Nitrogen 8 7-18 MG/DL Creatinine 0.65 0.60-1.30 MG/DL Estimat Glomerular Filtration Rate > 60 BUN/Creatinine Ratio 12 Glucose Level 77 70-105 MG/DL Calcium Level 9.4 8.5-10.1 MG/DL Corrected Calcium 9.3 8.5-10.1 MG/DL Magnesium Level 2.1 1.8-2.4 MG/DL Total Bilirubin 0.3 0.1-1.0 MG/DL Aspartate Amino Transf (AST/SGOT) 12 5-34 U/L Alanine Aminotransferase (ALT/SGPT) 11 0-55 U/L Alkaline Phosphatase 55 40-136 U/L Myoglobin 21.3 10.0-92.0 NG/ML Troponin I < 0.30 <0.30 NG/ML Total Protein 7.1 6.4-8.2 GM/DL Albumin 4.1 3.2-4.5 GM/DL Lipase 38 8-78 U/L Serum Test, Qualitative POSITIVE NEGATIVE Urine Opiates Screen NEGATIVE NEGATIVE Urine Oxycodone Screen NEGATIVE NEGATIVE Urine Methadone Screen NEGATIVE NEGATIVE Urine Propoxyphene Screen NEGATIVE NEGATIVE Urine Barbiturates Screen NEGATIVE NEGATIVE Ur Tricyclic Antidepressants Screen NEGATIVE NEGATIVE Urine Phencyclidine Screen NEGATIVE NEGATIVE Urine Amphetamines Screen POSITIVE H NEGATIVE Urine Methamphetamines Screen NEGATIVE NEGATIVE Urine Benzodiazepines Screen NEGATIVE NEGATIVE Urine Cocaine Screen NEGATIVE NEGATIVE Urine Cannabinoids Screen NEGATIVE NEGATIVE My Orders Orders - JING GARCES MD Cbc With Automated Diff (10/21/18 18:04) Magnesium (10/21/18 18:04) Chest 1 View, Ap/Pa Only (10/21/18 18:04) Ekg Tracing (10/21/18 18:04) Cardiac Profile 1 (10/21/18 18:04) Comprehensive Metabolic Panel (10/21/18 18:04) Myoglobin Serum (10/21/18 18:04) Protime With Inr (10/21/18 18:04) Partial Thromboplastin Time (10/21/18 18:04) O2 (10/21/18 18:04) Monitor-Rhythm Ecg Trace Only (10/21/18 18:04) Saline Lock/Iv-Start (10/21/18 18:04) Fibrin Degradation Products (10/21/18 18:04) Hcg,Qualitative Serum (10/21/18 18:04) Drug Screen Stat (Urine) (10/21/18 18:04) Ondansetron Injection (Zofran Injectio (10/21/18 18:15) Lidocaine 2% Viscous 15 Ml (Xylocaine Vi (10/21/18 18:15) Antacid Suspension (Mylanta Suspension (10/21/18 18:15) Saline Lock/Iv-Start (10/21/18 18:49) Lactated Ringers (Lr 1000 Ml Iv Solution (10/21/18 18:49) Foot, Left, 3 Views (10/21/18 18:54) Ankle, Left, 3 Views (10/21/18 18:54) Lipase (10/21/18 18:56) Potassium Chloride (Tablet) (Klor Con Ta (10/21/18 19:15) Acetaminophen Tablet/Caplet (Tylenol T (10/21/18 19:15) Medications Given in ED Vital Signs/I&O 10/21/18 10/21/18 17:53 20:02 Temp 99.5 99.5 Pulse 68 68 Resp 20 20 B/P (MAP) 158/91 (113) 158/91 (113) Pulse Ox 100 100 O2 Delivery Room Air 10/22/18 00:00 Intake Total 900 ml Balance 900 ml Blood Pressure Mean: 113 Progress Progress Note #1: Time: 18:59 Progress Note Labs so far have been unremarkable except for hypokalemia and a positive test. Patient did not know she was . She was reexamined and found to still have epigastric and right upper quadrant tenderness. Patient is afebrile and does not have a significant leukocytosis. Therefore an ultrasound can be performed on an outpatient basis. Patient is much calmer now but is upset that she is . LMP is unknown so gestational age is unknown. Patient now states that she did trip and injured her left ankle a couple days ago. We will proceed with the chest x-ray and the ankle and foot x-rays while shielding the abdomen. Progress Note #2: Progress Note X-rays of the left foot and ankle and the chest were performed with abdominal shielding. There were no abnormalities identified. Case was discussed with Dr. Du who agrees with outpatient follow-up. I suggested ultrasound of the gallbladder and an OB ultrasound to confirm dates be obtained on an outpatient basis since ultrasound is not available tonight. IV fluids were administered and potassium was replaced orally prior to dismissal. Initial ECG Impression Date: Oct 21, 2018 Initial ECG Impression Time: 17:56 Initial ECG Rate: 63 Initial ECG Rhythm: Normal Sinus Comment Sinus rhythm with no ST elevation or depression. MS interval 240. No axis deviation. Diagnostic Imaging Diagonstic Imaging: Xray Plain Films/CT/US/NM/MRI: other (left foot and ankle) Comments X-rays of the left foot and ankle viewed by me and report reviewed. See report below: NAME: SHAYNE ONEIL MED REC#: [id number] PT STATUS: REG ER : 1995 PHYSICIAN: JING GARCES MD ADMIT DATE: 10/21/18/ER Signed Date of Exam: 10/21/18 ANKLE, LEFT, 3 VIEWS Clinical indication: Patient can't feel left leg, below the ankle 2 days ago and can't stand on it. Patient has pain on posterior side of foot. Exams: 1: X-ray of the left foot, 3 views. 2: X-ray of the left ankle, 3 views. Comparison: None. Findings: X-ray of the left foot and left ankle shows no acute fracture or dislocation. There is no significant bone or joint abnormality. Ankle mortise and syndesmotic joint are unremarkable. Impression: Unremarkable x-ray of the left foot and left ankle. Dictated by: Dictated on workstation # [id number] Dict: 10/21/181924 Trans: 10/21/181927 Interpreted by: SAVANNAH DE JESUS MD Electronically signed by: SAVANNAH DE JESUS MD 10/21/181927 Diagonstic Imaging: Xray Plain Films/CT/US/NM/MRI: chest Comments Chest x-ray viewed by me and report reviewed. See report below: NAME: SHAYNE ONEIL MED REC#: [id number] PT STATUS: REG ER : 1995 PHYSICIAN: JING GARCES MD ADMIT DATE: 10/21/18/ER Signed Date of Exam: 10/21/18 CHEST 1 VIEW, AP/PA ONLY EXAMINATION: Chest radiograph, portable AP view. DATE: October 21, 2018 at 1935 hours. INDICATION: 23-year-old female, dizziness and chest pain. COMPARISON: November 11, 2016. FINDINGS: Stable overall appearance of the cardiomediastinal silhouette. There is no identified pneumothorax. There is no large pleural effusion. There is no identified focal airspace consolidation. There is no identified displaced rib fracture. IMPRESSION: No identified acute cardiopulmonary abnormality. Dictated by: Dictated on workstation # [id number] Dict: 10/21/181924 Trans: 10/21/181926 Interpreted by: CATY CLEANING MD Electronically signed by: CATY CLEANING MD 10/21/181926 Departure Impression Primary Impression: Upper abdominal pain Additional Impressions: Atypical chest pain Positive blood test Injury of left foot Qualified Codes: S99.922A - Unspecified injury of left foot, initial encounter Hypokalemia Disposition: 01 HOME, SELF-CARE Condition: Improved Departure-Patient Inst. Decision time for Depature: 19:30 Referrals: BRYAN DU MD (PCP/Family) Primary Care Physician Patient Instructions: Acute Abdomen (Belly Pain), Chest Pain That Is Not Caused by the Heart (DC) Add. Discharge Instructions: For pain you may take Tylenol (acetaminophen) up to 650 mg every 6 hours as needed. Start with a clear liquid diet and gradually advance your diet with small quantities of bland food as tolerated. Contact Dr. Du's office tomorrow for follow-up appointment and to schedule an ultrasound for dating your and for evaluation of your gallbladder. Return to emergency room if symptoms worsen. All discharge instructions reviewed with patient and/or family. Voiced understanding. Work/School Note: Work Release Form Date Seen in the Emergency Department: Oct 21, 2018 Return to Work: Oct 23, 2018 Restrictions: No Restrictions Copy Copies To 1: BRYAN DU MD, JOSHUA T MD Oct 21, 2018 18:15
[2018-10-21 18:33] LABS: ALANINE AMINOTRANSFERASE 11 U/L (0-55); ALBUMIN 4.1 GM/DL (3.2-4.5); ALKALINE PHOSPHATASE 55 U/L (40-136); BILIRUBIN,TOTAL 0.3 MG/DL (0.1-1.0); BUN/CREATININE RATIO 12; CALCIUM 9.4 MG/DL (8.5-10.1); CARBON DIOXIDE 22 MMOL/L (21-32); CHLORIDE 107 MMOL/L (98-107); CREATININE SERUM 0.65 MG/DL (0.60-1.30); GFR ESTIMATED > 60; GLUCOSE 77 MG/DL (70-105); INR 1.1 (0.8-1.4); MAGNESIUM 2.1 MG/DL (1.8-2.4); PROTHROMBIN TIME PATIENT 13.8 SEC (12.2-14.7); SODIUM 138 MMOL/L (135-145); TOTAL PROTEIN 7.1 GM/DL (6.4-8.2)
[2018-10-21 18:33] LABS: AMPHETAMINE SCREEN, URINE POSITIVE (NEGATIVE); BARBITURATE SCREEN URINE NEGATIVE (NEGATIVE); BENZODIAZEPINES SCREEN URINE NEGATIVE (NEGATIVE); CANNABINOID SCREEN, URINE NEGATIVE (NEGATIVE); COCAINE SCREEN URINE NEGATIVE (NEGATIVE); METHADONE STAT NEGATIVE (NEGATIVE); METHAMPHETAMINE SCREEN URINE S NEGATIVE (NEGATIVE); OPIATE SCREEN URINE NEGATIVE (NEGATIVE); OXYCODONE STAT NEGATIVE (NEGATIVE); PROPOXYPHENE STAT NEGATIVE (NEGATIVE); TRICYCLIC ANTIDEPRESSANTS SCRE NEGATIVE (NEGATIVE)
[2018-10-21 18:39] LABS: MYOGLOBIN SERUM 21.3 NG/ML (10.0-92.0)
[2018-10-21] MEDS ORDERED: LACTATED RINGERS 1,000 ML IV ONE (18:49)
[2018-10-21] MEDS ORDERED: ACETAMINOPHEN 325 MG TABLET PO ONE (19:15)
[2018-10-21] MEDS ORDERED: KCL 10 MEQ TAB (MICRO K) PO ONE (19:15)
--- NOTE | 2018-10-21 19:28 | Diagnostic Imaging Report ---
EXAMINATION: Chest radiograph, portable AP view. DATE: October 21, 2018 at 1935 hours. INDICATION: 23-year-old female, dizziness and chest pain. COMPARISON: November 11, 2016. FINDINGS: Stable overall appearance of the cardiomediastinal silhouette. There is no identified pneumothorax. There is no large pleural effusion. There is no identified focal airspace consolidation. There is no identified displaced rib fracture. IMPRESSION: No identified acute cardiopulmonary abnormality. Dictated by: Dictated on workstation # [id number]
--- NOTE | 2018-10-21 19:30 | Diagnostic Imaging Report ---
Clinical indication: Patient can't feel left leg, below the ankle 2 days ago and can't stand on it. Patient has pain on posterior side of foot. Exams: 1: X-ray of the left foot, 3 views. 2: X-ray of the left ankle, 3 views. Comparison: None. Findings: X-ray of the left foot and left ankle shows no acute fracture or dislocation. There is no significant bone or joint abnormality. Ankle mortise and syndesmotic joint are unremarkable. Impression: Unremarkable x-ray of the left foot and left ankle. Dictated by: Dictated on workstation # [id number]
[2018-10-21 20:02] VITALS: BP 158/91
== END 2018-10-21 20:02 | disposition home or self-care (01) ==
LOC: EDUNIT# 17:45 → ER 17:46
DX: S99.922A Unspecified injury of left foot, initial encounter (principal); R10.13 Epigastric pain; R07.89 Other chest pain; I10 Essential (primary) hypertension; G40.909 Epilepsy, unspecified, not intractable, without status epilepticus; E87.6 Hypokalemia; F17.200 Nicotine dependence, unspecified, uncomplicated; Z32.01 Encounter for pregnancy test, result positive; X58.XXXA Exposure to other specified factors, initial encounter
CPT/HCPCS: 36415; 71045; 73610; 73630; 80053; 80306; 83690; 83735; 83874; 84484; 84703; 85025; 85379; 85610; 85730; 93005; 93041; 96374

== ENCOUNTER 2018-11-10 17:52 | Emergency (ER) | payer MEDICAID ==
[~2018-11-10] VITALS: Ht 160 cm; Wt 53.5 kg
--- OUTSIDE RECORDS SUMMARY | 2018-11-10 17:57 | XMS REPORT ---
Author Author BRYAN DU Organization [facility] Address [address] [place] [address] Care Team Providers Care Card Filer Name Role Phone BRYAN DU Unavailable PROBLEMS Unknown Problems ALLERGIES No Information ENCOUNTERS Encounter Location Date Diagnosis [facility] [address] [id number] [id number] Oct, [facility] [id number] [place] [phone] Oct, [facility] [id number], [place] [address] Oct, IMMUNIZATIONS No Known Immunizations SOCIAL HISTORY Never Assessed REASON FOR VISIT PLAN OF CARE VITAL SIGNS MEDICATIONS Unknown Medications RESULTS No Results PROCEDURES No Known procedures INSTRUCTIONS MEDICATIONS ADMINISTERED No Known Medications
--- OUTSIDE RECORDS SUMMARY | 2018-11-10 17:58 | XMS REPORT | Continuity of Care Document ---
Author Author [facility] Organization [facility] Address Unknown Phone Unavailable Allergies Active Description Code Type Severity Reaction Onset Reported/Identified Relationship to Patient Clinical Status Yes No Known Drug Allergies [id number] Drug Allergy Unknown N/A 08/14/2015 Medications There is no data. 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 IN 08/14/2015 MORTEZA ALLISON APRN Ot R11.2 NAUSEA WITH VOMITING, UNSPECIFIED 08/14/2015 MORTEZA ALLISON APRN Ot Z3A.11 11 WEEKS GESTATION OF 11/02/2015 BRYAN DU MD, Ot Z36 11/02/2015 BRYAN DU MD, Ot Z36 11/02/2015 BRYAN DU MD, Ot Z36 11/17/2015 BRYAN DU MD, Ot Z36 01/31/2016 BRYAN DU MD, Ot Z36 02/16/2016 BRYAN DU MD, Ot O44.13 PLACENTA PREVIA WITH HEMORRHAGE, THIRD T 02/16/2016 BRYAN DU MD, Ot Z3A.00 WEEKS OF GESTATION OF NOT SPEC 03/15/2016 CURRY CASTRO MD Ot O99.89 OTH DISEASES AND CONDITIONS COMPL PREG/C 03/15/2016 CURRY CASTRO MD Ot R10.9 UNSPECIFIED ABDOMINAL PAIN 03/15/2016 CURRY CASTRO MD Ot Z3A.37 37 WEEKS GESTATION OF 03/21/2016 BRYAN DU MD, Ot O26.23 PREG CARE FOR PATIENT W RECURRENT PREG L 03/21/2016 BRYAN DU MD, Ot Z3A.32 32 WEEKS GESTATION OF 03/22/2016 BRYAN DU MD, Ot O73.0 RETAINED PLACENTA WITHOUT HEMORRHAGE 03/22/2016 BRYAN DU MD, Ot R50.9 FEVER, UNSPECIFIED 03/22/2016 BRYAN DU MD, Ot Z23 ENCOUNTER FOR IMMUNIZATION 03/22/2016 BRYAN DU MD, Ot Z37.0 SINGLE LIVE 03/22/2016 BRYAN DU MD, Ot Z3A.38 38 WEEKS GESTATION OF 05/12/2016 BRYAN DU MD, Ot O26.23 PREG CARE FOR PATIENT W RECURRENT PREG L 05/12/2016 BRYAN DU MD, Ot Z3A.32 32 WEEKS GESTATION OF 11/11/2016 BRYAN DU MD, Ot Z36 ENCOUNTER FOR SCREENING OF MOT 11/11/2016 BRYAN DU MD, Ot O44.13 PLACENTA PREVIA WITH HEMORRHAGE, THIRD T 11/11/2016 BRYAN DU MD, Ot Z3A.00 WEEKS OF GESTATION OF NOT SPEC 11/11/2016 BRYAN DU MD, Ot O26.23 PREG CARE FOR PATIENT W RECURRENT PREG L 11/11/2016 BRYAN DU MD, Ot Z3A.32 32 WEEKS GESTATION OF 11/11/2016 JING GARCES MD Ot G40.909 EPILEPSY, UNSP, NOT INTRACTABLE, WITHOUT 11/11/2016 JING GARCES MD Ot R56.9 UNSPECIFIED CONVULSIONS 11/11/2016 JING GARCES MD Ot S40.011A CONTUSION OF RIGHT SHOULDER, INITIAL ENC 11/11/2016 JING GARCES MD Ot W18.30XA FALL ON SAME LEVEL, UNSPECIFIED, INITIAL 11/11/2016 JING GARCES MD Ot Y92.[address] IN UNSP NON-INSTITUT (PRIVATE 11/11/2016 JING GARCES MD Ot Y99.8 OTHER EXTERNAL CAUSE STATUS 11/11/2016 BRYAN DU MD, Ot Z36 ENCOUNTER FOR SCREENING OF MOT 11/11/2016 BRYAN DU MD, Ot O44.13 PLACENTA PREVIA WITH HEMORRHAGE, THIRD T 11/11/2016 BYRAN DU MD, Ot Z3A.00 WEEKS OF GESTATION OF NOT SPEC 11/11/2016 BRYAN DU MD, Ot O26.23 PREG CARE FOR PATIENT W RECURRENT PREG L 11/11/2016 BRYAN DU MD, Ot Z3A.32 32 WEEKS GESTATION OF 11/25/2016 BRYAN DU MD, Ot R56.9 UNSPECIFIED CONVULSIONS 12/09/2016 BRYAN DU MD, Ot R56.9 UNSPECIFIED CONVULSIONS 08/28/2017 BRYAN DU MD, Ot Z36 ENCOUNTER FOR SCREENING OF MOT 08/28/2017 BRYAN DU MD, Ot O44.13 PLACENTA PREVIA WITH HEMORRHAGE, THIRD T 08/28/2017 BRYAN DU MD, Ot Z3A.00 WEEKS OF GESTATION OF NOT SPEC 08/28/2017 BRYAN DU MD, Ot O26.23 PREG CARE FOR PATIENT W RECURRENT PREG L 08/28/2017 BRYAN DU MD, Ot Z3A.32 32 WEEKS GESTATION OF 08/28/2017 BRYNA DU MD, Ot R56.9 UNSPECIFIED CONVULSIONS 09/01/2017 BRYAN DU MD, Ot Z36 ENCOUNTER FOR SCREENING OF MOT 09/01/2017 BRYAN DU MD, Ot O44.13 PLACENTA PREVIA WITH HEMORRHAGE, THIRD T 09/01/2017 BRYAN DU MD, Ot Z3A.00 WEEKS OF GESTATION OF NOT SPEC 09/01/2017 BRYAN DU MD, Ot O26.23 PREG CARE FOR PATIENT W RECURRENT PREG L 09/01/2017 BRYAN DU MD, Ot Z3A.32 32 WEEKS GESTATION OF 09/01/2017 BRYAN DU MD, Ot R56.9 UNSPECIFIED CONVULSIONS 09/18/2017 BRYAN DU MD, Ot Z36.87 ENCOUNTER FOR SCREENING FOR UN 09/18/2017 BRYAN DU MD, Ot Z3A.01 LESS THAN 8 WEEKS GESTATION OF 10/23/2017 JING GARCES MD Ot G40.909 EPILEPSY, UNSP, NOT INTRACTABLE, WITHOUT 10/23/2017 JING GARCES MD Ot H53.2 DIPLOPIA 10/23/2017 JING GARCES MD Ot I10 ESSENTIAL (PRIMARY) HYPERTENSION 10/23/2017 JING GARCES MD Ot O16.2 UNSPECIFIED MATERNAL HYPERTENSION, SECON 10/23/2017 JING GARCES MD Ot O99.352 DISEASES OF THE NERVOUS SYS COMP PREGNAN 10/23/2017 JING GARCES MD Ot O99.89 OTH DISEASES AND CONDITIONS COMPL PREG/C 10/23/2017 JING GARCES MD Ot R51 HEADACHE 10/23/2017 JING GARCES MD Ot Z3A.15 15 WEEKS GESTATION OF 11/17/2017 BRYAN DU MD, Ot Z36.89 ENCOUNTER FOR OTHER SPECIFIED 11/17/2017 BRYAN DU MD, Ot Z3A.18 18 WEEKS GESTATION OF 12/22/2017 BRYAN DU MD, Ot Z36.89 ENCOUNTER FOR OTHER SPECIFIED 12/22/2017 BRYAN DU MD, Ot Z3A.18 18 WEEKS GESTATION OF 03/07/2018 BRYAN DU MD, Ot N85.9 NONINFLAMMATORY DISORDER OF UTERUS, UNSP 03/07/2018 BRYAN DU MD, Ot O99.89 OTH DISEASES AND CONDITIONS COMPL PREG/C 03/07/2018 BRYAN DU MD, Ot Z3A.34 34 WEEKS GESTATION OF 04/07/2018 BRYAN DU MD, Ot N85.8 OTHER SPECIFIED NONINFLAMMATORY DISORDER 04/07/2018 BRYAN DU MD, Ot O99.89 OTH DISEASES AND CONDITIONS COMPL PREG/C 04/07/2018 BRYAN DU MD, Ot Z3A.38 38 WEEKS GESTATION OF 04/10/2018 BRYAN DU MD, Ot N85.8 OTHER SPECIFIED NONINFLAMMATORY DISORDER 04/10/2018 BRYAN DU MD, Ot O99.89 OTH DISEASES AND CONDITIONS COMPL PREG/C 04/10/2018 BRYAN DU MD, Ot Z3A.38 38 WEEKS GESTATION OF 04/15/2018 BRYAN DU MD, Ot O80 ENCOUNTER FOR FULL-TERM UNCOMPLICATED DE 04/15/2018 BRYAN DU MD Ot Z37.0 SINGLE LIVE 04/15/2018 BRYAN DU MD, Ot Z3A.39 39 WEEKS GESTATION OF 10/23/2018 JING GARCES MD Ot E87.6 HYPOKALEMIA 10/23/2018 JING GARCES MD Ot F17.200 NICOTINE DEPENDENCE, UNSPECIFIED, UNCOMP 10/23/2018 JING GARCES MD, Ot G40.909 EPILEPSY, UNSP, NOT INTRACTABLE, WITHOUT 10/23/2018 JING GARCES MD Ot I10 ESSENTIAL (PRIMARY) HYPERTENSION 10/23/2018 JING GARCES MD Ot R07.89 OTHER CHEST PAIN 10/23/2018 JING GARCES MD, Ot R10.13 EPIGASTRIC PAIN 10/23/2018 JING GARCES MD, Ot S99.922A UNSPECIFIED INJURY OF LEFT FOOT, INITIAL 10/23/2018 JING GARCES MD, Ot X58.XXXA EXPOSURE TO OTHER SPECIFIED FACTORS, INI 10/23/2018 JING GARCES MD, Ot Z32.01 ENCOUNTER FOR TEST, RESULT POS Procedures Code Description Performed By Performed On EXTRACTION OF PRODUCTS OF CONCEPTION, RE 03/20/2016 [id number] DELIVERY OF PRODUCTS OF CONCEPTION, EXTE 03/20/2016 [id number] DELIVERY OF PRODUCTS OF CONCEPTION, EXTE 04/14/2018 [id number] INTRODUCTION OF OTH HORMONE INTO PERIPH 04/14/2018 Results Test Result Range Complete urinalysis with reflex to culture - 11/11/16 17:35 Urine color determination YELLOW NRG Urine clarity determination VERY CLOUDY NRG Urine pH measurement by test strip 8 5-9 Specific gravity of urine by test strip 1.015 1.016- 1.022 Urine protein assay by test strip, semi-quantitative NEGATIVE NEGATIVE Urine glucose detection by automated test strip NEGATIVE NEGATIVE Erythrocytes detection in urine sediment by light microscopy NEGATIVE NEGATIVE Urine ketones detection by automated test strip NEGATIVE NEGATIVE Urine nitrite detection by test strip NEGATIVE NEGATIVE Urine total bilirubin detection by test strip NEGATIVE NEGATIVE Urine urobilinogen measurement by automated test strip (mass/volume) NORMAL NORMAL Urine leukocyte esterase detection by dipstick NEGATIVE NEGATIVE Automated urine sediment erythrocyte count by microscopy (number/high power field) NONE NRG Automated urine sediment leukocyte count by microscopy (number/high power field ) NONE NRG Bacteria detection in urine sediment by light microscopy FEW NRG Squamous epithelial cells detection in urine sediment by light microscopy 5-10 NRG Crystals detection in urine sediment by light microscopy PRESENT NRG Casts detection in urine sediment by light microscopy NONE NRG Mucus detection in urine sediment by light microscopy NEGATIVE NRG Complete urinalysis with reflex to culture NO NRG Amorphous sediment detection in urine sediment by light microscopy MOD HAN PHOSPHATE NRG Urine drug screening test - 11/11/16 17:35 Urine phencyclidine detection by screening method NEGATIVE NEGATIVE Urine benzodiazepines detection by screening method NEGATIVE NEGATIVE Urine cocaine detection NEGATIVE NEGATIVE Urine amphetamines detection by screening method NEGATIVE NEGATIVE Urine methamphetamine detection by screening method NEGATIVE NEGATIVE Urine cannabinoids detection by screening method NEGATIVE NEGATIVE Urine opiates detection by screening method NEGATIVE NEGATIVE Urine barbiturates detection NEGATIVE NEGATIVE Screening urine tricyclic antidepressants detection NEGATIVE NEGATIVE Urine methadone detection by screening method NEGATIVE NEGATIVE Urine oxycodone detection NEGATIVE NEGATIVE Urine propoxyphene detection NEGATIVE NEGATIVE Complete blood count (CBC) with automated white blood cell (WBC) differential - 11/11/16 18:50 Blood leukocytes automated count (number/volume) 10.0 10*3/uL 4.3-11.0 Blood erythrocytes automated count (number/volume) 4.56 10*6/uL 4.35-5.85 Venous blood hemoglobin measurement (mass/volume) 12.9 g/dL 11.5-16.0 Blood hematocrit (volume fraction) 38 % 35-52 Automated erythrocyte mean corpuscular volume 83 [foz_us] 80-99 Automated erythrocyte mean corpuscular hemoglobin (mass per erythrocyte) 28 pg 25-34 Automated erythrocyte mean corpuscular hemoglobin concentration measurement ( mass/volume) 34 g/dL 32-36 Automated erythrocyte distribution width ratio 13.2 % 10.0-14.5 Automated blood platelet count (count/volume) 264 10*3/uL 130-400 Automated blood platelet mean volume measurement 11.0 [foz_us] 7.4-10.4 Automated blood neutrophils/100 leukocytes 78 % 42-75 Automated blood lymphocytes/100 leukocytes 14 % 12-44 Blood monocytes/100 leukocytes 8 % 0-12 Automated blood eosinophils/100 leukocytes 1 % 0-10 Automated blood basophils/100 leukocytes 0 % 0-10 Blood neutrophils automated count (number/volume) 7.8 10*3 1.8-7.8 Blood lymphocytes automated count (number/volume) 1.4 10*3 1.0-4.0 Blood monocytes automated count (number/volume) 0.8 10*3 0.0-1.0 Automated eosinophil count 0.1 10*3/uL 0.0-0.3 Automated blood basophil count (count/volume) 0.0 10*3/uL 0.0-0.1 Serum or plasma choriogonadotropin ( test) detection - 11/11/16 18:50 Serum or plasma choriogonadotropin ( test) detection NEGATIVE NEGATIVE Comprehensive metabolic panel - 11/11/16 18:50 Serum or plasma sodium measurement (moles/volume) 138 mmol/L 135-145 Serum or plasma potassium measurement (moles/volume) 3.5 mmol/L 3.6-5.0 Serum or plasma chloride measurement (moles/volume) 108 mmol/L 98-107 Carbon dioxide 21 mmol/L 21-32 Serum or plasma anion gap determination (moles/volume) 9 mmol/L 5-14 Serum or plasma urea nitrogen measurement (mass/volume) 12 mg/dL 7-18 Serum or plasma creatinine measurement (mass/volume) 0.74 mg/dL 0.60-1.30 Serum or plasma urea nitrogen/creatinine mass ratio 16 NRG Serum or plasma creatinine measurement with calculation of estimated glomerular filtration rate > NRG Serum or plasma glucose measurement (mass/volume) 95 mg/dL 70-105 Serum or plasma calcium measurement (mass/volume) 8.8 mg/dL 8.5-10.1 Serum or plasma total bilirubin measurement (mass/volume) 0.4 mg/dL 0.1-1.0 Serum or plasma alkaline phosphatase measurement (enzymatic activity/volume) 37 U/L 40-136 Serum or plasma aspartate aminotransferase measurement (enzymatic activity/ volume) 14 U/L 5-34 Serum or plasma alanine aminotransferase measurement (enzymatic activity/volume ) 13 U/L 0-55 Serum or plasma protein measurement (mass/volume) 7.0 g/dL 6.4-8.2 Serum or plasma albumin measurement (mass/volume) 4.2 g/dL 3.2-4.5 Magnesium - 11/11/16 18:50 Magnesium 2.2 mg/dL 1.8-2.4 Serum or plasma thyrotropin measurement by detection limit <=0.05 miu/l (units/ volume) - 11/11/16 18:50 Serum or plasma thyrotropin measurement by detection limit <=0.05 miu/l (units/ volume) 1.44 u[iU]/mL 0.35-4.94 Serum or plasma ethanol measurement (mass/volume) - 11/11/16 18:50 Serum or plasma ethanol measurement (mass/volume) < mg/dL <10 Complete blood count (CBC) with automated white blood cell (WBC) differential - 10/23/17 20:20 Blood leukocytes automated count (number/volume) 11.7 10*3/uL 4.3-11.0 Blood erythrocytes automated count (number/volume) 4.01 10*6/uL 4.35-5.85 Venous blood hemoglobin measurement (mass/volume) 12.3 g/dL 11.5-16.0 Blood hematocrit (volume fraction) 35 % 35-52 Automated erythrocyte mean corpuscular volume 87 [foz_us] 80-99 Automated erythrocyte mean corpuscular hemoglobin (mass per erythrocyte) 31 pg 25-34 Automated erythrocyte mean corpuscular hemoglobin concentration measurement ( mass/volume) 35 g/dL 32-36 Automated erythrocyte distribution width ratio 13.3 % 10.0-14.5 Automated blood platelet count (count/volume) 245 10*3/uL 130-400 Automated blood platelet mean volume measurement 10.9 [foz_us] 7.4-10.4 Automated blood neutrophils/100 leukocytes 68 % 42-75 Automated blood lymphocytes/100 leukocytes 23 % 12-44 Blood monocytes/100 leukocytes 8 % 0-12 Automated blood eosinophils/100 leukocytes 1 % 0-10 Automated blood basophils/100 leukocytes 0 % 0-10 Blood neutrophils automated count (number/volume) 8.0 10*3 1.8-7.8 Blood lymphocytes automated count (number/volume) 2.6 10*3 1.0-4.0 Blood monocytes automated count (number/volume) 0.9 10*3 0.0-1.0 Automated eosinophil count 0.1 10*3/uL 0.0-0.3 Automated blood basophil count (count/volume) 0.0 10*3/uL 0.0-0.1 Comprehensive metabolic panel - 10/23/17 20:20 Serum or plasma sodium measurement (moles/volume) 138 mmol/L 135-145 Serum or plasma potassium measurement (moles/volume) 3.6 mmol/L 3.6-5.0 Serum or plasma chloride measurement (moles/volume) 107 mmol/L 98-107 Carbon dioxide 22 mmol/L 21-32 Serum or plasma anion gap determination (moles/volume) 9 mmol/L 5-14 Serum or plasma urea nitrogen measurement (mass/volume) 6 mg/dL 7-18 Serum or plasma creatinine measurement (mass/volume) 0.55 mg/dL 0.60-1.30 Serum or plasma urea nitrogen/creatinine mass ratio 11 NRG Serum or plasma creatinine measurement with calculation of estimated glomerular filtration rate > NRG Serum or plasma glucose measurement (mass/volume) 86 mg/dL 70-105 Serum or plasma calcium measurement (mass/volume) 8.5 mg/dL 8.5-10.1 Serum or plasma total bilirubin measurement (mass/volume) 0.3 mg/dL 0.1-1.0 Serum or plasma alkaline phosphatase measurement (enzymatic activity/volume) 37 U/L 40-136 Serum or plasma aspartate aminotransferase measurement (enzymatic activity/ volume) 11 U/L 5-34 Serum or plasma alanine aminotransferase measurement (enzymatic activity/volume ) 7 U/L 0-55 Serum or plasma protein measurement (mass/volume) 6.7 g/dL 6.4-8.2 Serum or plasma albumin measurement (mass/volume) 3.6 g/dL 3.2-4.5 Magnesium - 10/23/17 20:20 Magnesium 1.7 mg/dL 1.8-2.4 Serum or plasma ethanol measurement (mass/volume) - 10/23/17 20:20 Serum or plasma ethanol measurement (mass/volume) < mg/dL <10 Complete urinalysis with reflex to culture - 10/23/17 20:25 Urine color determination YELLOW NRG Urine clarity determination CLEAR NRG Urine pH measurement by test strip 8 5-9 Specific gravity of urine by test strip 1.010 1.016- 1.022 Urine protein assay by test strip, semi-quantitative NEGATIVE NEGATIVE Urine glucose detection by automated test strip NEGATIVE NEGATIVE Erythrocytes detection in urine sediment by light microscopy NEGATIVE NEGATIVE Urine ketones detection by automated test strip NEGATIVE NEGATIVE Urine nitrite detection by test strip NEGATIVE NEGATIVE Urine total bilirubin detection by test strip NEGATIVE NEGATIVE Urine urobilinogen measurement by automated test strip (mass/volume) NORMAL NORMAL Urine leukocyte esterase detection by dipstick 1+ NEGATIVE Automated urine sediment erythrocyte count by microscopy (number/high power field) NONE NRG Automated urine sediment leukocyte count by microscopy (number/high power field ) [HPF] NRG Bacteria detection in urine sediment by light microscopy FEW NRG Squamous epithelial cells detection in urine sediment by light microscopy 2-5 NRG Crystals detection in urine sediment by light microscopy NONE NRG Casts detection in urine sediment by light microscopy NONE NRG Mucus detection in urine sediment by light microscopy NEGATIVE NRG Complete urinalysis with reflex to culture NO NRG Urine drug screening test - 10/23/17 20:25 Urine phencyclidine detection by screening method NEGATIVE NEGATIVE Urine benzodiazepines detection by screening method NEGATIVE NEGATIVE Urine cocaine detection NEGATIVE NEGATIVE Urine amphetamines detection by screening method NEGATIVE NEGATIVE Urine methamphetamine detection by screening method NEGATIVE NEGATIVE Urine cannabinoids detection by screening method NEGATIVE NEGATIVE Urine opiates detection by screening method NEGATIVE NEGATIVE Urine barbiturates detection NEGATIVE NEGATIVE Screening urine tricyclic antidepressants detection NEGATIVE NEGATIVE Urine methadone detection by screening method NEGATIVE NEGATIVE Urine oxycodone detection NEGATIVE NEGATIVE Urine propoxyphene detection NEGATIVE NEGATIVE Complete blood count (CBC) with automated white blood cell (WBC) differential - 04/14/18 06:20 Blood leukocytes automated count (number/volume) 10.6 10*3/uL 4.3-11.0 Blood erythrocytes automated count (number/volume) 4.13 10*6/uL 4.35-5.85 Venous blood hemoglobin measurement (mass/volume) 10.0 g/dL 11.5-16.0 Blood hematocrit (volume fraction) 31 % 35-52 Automated erythrocyte mean corpuscular volume 75 [foz_us] 80-99 Automated erythrocyte mean corpuscular hemoglobin (mass per erythrocyte) 24 pg 25-34 Automated erythrocyte mean corpuscular hemoglobin concentration measurement ( mass/volume) 32 g/dL 32-36 Automated erythrocyte distribution width ratio 15.1 % 10.0-14.5 Automated blood platelet count (count/volume) 258 10*3/uL 130-400 Automated blood platelet mean volume measurement 11.3 [foz_us] 7.4-10.4 Automated blood neutrophils/100 leukocytes 74 % 42-75 Automated blood lymphocytes/100 leukocytes 18 % 12-44 Blood monocytes/100 leukocytes 8 % 0-12 Automated blood eosinophils/100 leukocytes 1 % 0-10 Automated blood basophils/100 leukocytes 0 % 0-10 Blood neutrophils automated count (number/volume) 7.8 10*3 1.8-7.8 Blood lymphocytes automated count (number/volume) 1.9 10*3 1.0-4.0 Blood monocytes automated count (number/volume) 0.8 10*3 0.0-1.0 Automated eosinophil count 0.1 10*3/uL 0.0-0.3 Automated blood basophil count (count/volume) 0.0 10*3/uL 0.0-0.1 Blood type T Indirect antibody screen panel - 04/14/18 06:20 ABO+Rh group OP NRG Transfusion band number [id number] NRG Blood group antibody screen NEGATIVE NRG Urine drug screening test - 04/14/18 08:45 Urine phencyclidine detection by screening method NEGATIVE NEGATIVE Urine benzodiazepines detection by screening method NEGATIVE NEGATIVE Urine cocaine detection NEGATIVE NEGATIVE Urine amphetamines detection by screening method NEGATIVE NEGATIVE Urine methamphetamine detection by screening method NEGATIVE NEGATIVE Urine cannabinoids detection by screening method NEGATIVE NEGATIVE Urine opiates detection by screening method NEGATIVE NEGATIVE Urine barbiturates detection NEGATIVE NEGATIVE Screening urine tricyclic antidepressants detection NEGATIVE NEGATIVE Urine methadone detection by screening method NEGATIVE NEGATIVE Urine oxycodone detection NEGATIVE NEGATIVE Urine propoxyphene detection NEGATIVE NEGATIVE Complete blood count (CBC) with automated white blood cell (WBC) differential - 04/15/18 05:48 Blood leukocytes automated count (number/volume) 11.6 10*3/uL 4.3-11.0 Blood erythrocytes automated count (number/volume) 3.74 10*6/uL 4.35-5.85 Venous blood hemoglobin measurement (mass/volume) 8.9 g/dL 11.5-16.0 Blood hematocrit (volume fraction) 29 % 35-52 Automated erythrocyte mean corpuscular volume 76 [foz_us] 80-99 Automated erythrocyte mean corpuscular hemoglobin (mass per erythrocyte) 24 pg 25-34 Automated erythrocyte mean corpuscular hemoglobin concentration measurement ( mass/volume) 31 g/dL 32-36 Automated erythrocyte distribution width ratio 15.3 % 10.0-14.5 Automated blood platelet count (count/volume) 240 10*3/uL 130-400 Automated blood platelet mean volume measurement 11.0 [foz_us] 7.4-10.4 Automated blood neutrophils/100 leukocytes 68 % 42-75 Automated blood lymphocytes/100 leukocytes 22 % 12-44 Blood monocytes/100 leukocytes 9 % 0-12 Automated blood eosinophils/100 leukocytes 1 % 0-10 Automated blood basophils/100 leukocytes 0 % 0-10 Blood neutrophils automated count (number/volume) 7.9 10*3 1.8-7.8 Blood lymphocytes automated count (number/volume) 2.6 10*3 1.0-4.0 Blood monocytes automated count (number/volume) 1.0 10*3 0.0-1.0 Automated eosinophil count 0.1 10*3/uL 0.0-0.3 Automated blood basophil count (count/volume) 0.0 10*3/uL 0.0-0.1 Complete blood count (CBC) with automated white blood cell (WBC) differential - 10/21/18 18:07 Blood leukocytes automated count (number/volume) 11.7 10*3/uL 4.3-11.0 Blood erythrocytes automated count (number/volume) 4.28 10*6/uL 4.35-5.85 Venous blood hemoglobin measurement (mass/volume) 11.8 g/dL 11.5-16.0 Blood hematocrit (volume fraction) 36 % 35-52 Automated erythrocyte mean corpuscular volume 83 [foz_us] 80-99 Automated erythrocyte mean corpuscular hemoglobin (mass per erythrocyte) 28 pg 25-34 Automated erythrocyte mean corpuscular hemoglobin concentration measurement ( mass/volume) 33 g/dL 32-36 Automated erythrocyte distribution width ratio 13.7 % 10.0-14.5 Automated blood platelet count (count/volume) 326 10*3/uL 130-400 Automated blood platelet mean volume measurement 10.3 [foz_us] 7.4-10.4 Automated blood neutrophils/100 leukocytes 70 % 42-75 Automated blood lymphocytes/100 leukocytes 19 % 12-44 Blood monocytes/100 leukocytes 10 % 0-12 Automated blood eosinophils/100 leukocytes 1 % 0-10 Automated blood basophils/100 leukocytes 0 % 0-10 Blood neutrophils automated count (number/volume) 8.2 10*3 1.8-7.8 Blood lymphocytes automated count (number/volume) 2.2 10*3 1.0-4.0 Blood monocytes automated count (number/volume) 1.2 10*3 0.0-1.0 Automated eosinophil count 0.1 10*3/uL 0.0-0.3 Automated blood basophil count (count/volume) 0.0 10*3/uL 0.0-0.1 Serum or plasma choriogonadotropin ( test) detection - 10/21/18 18:07 Serum or plasma choriogonadotropin ( test) detection POSITIVE NEGATIVE Comprehensive metabolic panel - 10/21/18 18:07 Serum or plasma sodium measurement (moles/volume) 138 mmol/L 135-145 Serum or plasma potassium measurement (moles/volume) 3.0 mmol/L 3.6-5.0 Serum or plasma chloride measurement (moles/volume) 107 mmol/L 98-107 Carbon dioxide 22 mmol/L 21-32 Serum or plasma anion gap determination (moles/volume) 9 mmol/L 5-14 Serum or plasma urea nitrogen measurement (mass/volume) 8 mg/dL 7-18 Serum or plasma creatinine measurement (mass/volume) 0.65 mg/dL 0.60-1.30 Serum or plasma urea nitrogen/creatinine mass ratio 12 NRG Serum or plasma creatinine measurement with calculation of estimated glomerular filtration rate > NRG Serum or plasma glucose measurement (mass/volume) 77 mg/dL 70-105 Serum or plasma calcium measurement (mass/volume) 9.4 mg/dL 8.5-10.1 Serum or plasma total bilirubin measurement (mass/volume) 0.3 mg/dL 0.1-1.0 Serum or plasma alkaline phosphatase measurement (enzymatic activity/volume) 55 U/L 40-136 Serum or plasma aspartate aminotransferase measurement (enzymatic activity/ volume) 12 U/L 5-34 Serum or plasma alanine aminotransferase measurement (enzymatic activity/volume ) 11 U/L 0-55 Serum or plasma protein measurement (mass/volume) 7.1 g/dL 6.4-8.2 Serum or plasma albumin measurement (mass/volume) 4.1 g/dL 3.2-4.5 CALCIUM CORRECTED 9.3 mg/dL 8.5-10.1 Magnesium - 10/21/18 18:07 Magnesium 2.1 mg/dL 1.8-2.4 PT panel in platelet poor plasma by coagulation assay - 10/21/18 18:07 Prothrombin time (PT) in platelet poor plasma by coagulation assay 13.8 s 12.2-14.7 INR in platelet poor plasma or blood by coagulation assay 1.1 0.8-1.4 Activated partial thromboplastin time (aPTT) in platelet poor plasma bycoagulation assay - 10/21/18 18:07 Activated partial thromboplastin time (aPTT) in platelet poor plasma bycoagulation assay 30 s 24-35 Fibrin D-dimer FEU measurement in platelet poor plasma (mass/volume) - 18:07 Fibrin D-dimer FEU measurement in platelet poor plasma (mass/volume) 0.24 ug/mL 0.00-0.49 Serum or plasma troponin i.cardiac measurement (mass/volume) - 10/21/18 18:07 Serum or plasma troponin i.cardiac measurement (mass/volume) < ng/ mL <0.30 Myoglobin, serum - 10/21/18 18:07 Myoglobin, serum 21.3 ng/mL 10.0-92.0 Lipase - 10/21/18 18:07 Lipase 38 U/L 8-78 Urine drug screening test - 10/21/18 18:15 Urine phencyclidine detection by screening method NEGATIVE NEGATIVE Urine benzodiazepines detection by screening method NEGATIVE NEGATIVE Urine cocaine detection NEGATIVE NEGATIVE Urine amphetamines detection by screening method POSITIVE NEGATIVE Urine methamphetamine detection by screening method NEGATIVE NEGATIVE Urine cannabinoids detection by screening method NEGATIVE NEGATIVE Urine opiates detection by screening method NEGATIVE NEGATIVE Urine barbiturates detection NEGATIVE NEGATIVE Screening urine tricyclic antidepressants detection NEGATIVE NEGATIVE Urine methadone detection by screening method NEGATIVE NEGATIVE Urine oxycodone detection NEGATIVE NEGATIVE Urine propoxyphene detection NEGATIVE NEGATIVE Encounters ACCT No. Visit Date/Time Discharge Status Pt. Type Provider Facility Loc./Unit Complaint [id number] 10/29/2018 12:24:00 10/29/2018 23:59:59 CLS Preadmit BRYAN DU MD [facility] RAD DATES [id number] 10/21/2018 17:46:00 10/21/2018 20:02:00 DIS Outpatient MILI DOLL, IJNG Izquierdo [facility] ER CHEST HURTS,DIZZY, CANT FEEL L LEG [id number] 04/14/2018 06:09:00 04/15/2018 13:00:00 DIS Inpatient BRYAN DU MD [facility] LDRP INDUCTION [id number] 04/07/2018 14:24:00 04/07/2018 17:00:00 DIS Outpatient BRYAN DU MD [facility] WSo STOMACH PRESSURE,BACK PAIN,NAUSEA [id number] 03/07/2018 14:38:00 03/07/2018 15:45:00 DIS Outpatient BRYAN DU MD [facility] STOMACH PRESSURE/BACK PAIN [id number] 11/14/2017 13:07:00 11/14/2017 23:59:59 CLS Outpatient BRYAN DU MD [facility] RAD SURVEY [id number] 10/23/2017 20:10:00 10/23/2017 22:19:00 DIS Emergency JING GARCES MD [facility] ER HEADACHE,DIZZINESS, 15WKS PREG [id number] 09/01/2017 13:25:00 09/01/2017 23:59:59 CLS Outpatient BRYAN DU MD [facility] RAD DATING [id number] 11/22/2016 07:55:00 11/22/2016 23:59:59 CLS Outpatient BRYAN DU MD [facility] RT SEIZURE [id number] 11/11/2016 17:05:00 11/11/2016 21:18:00 DIS Emergency JING GARCES MD [facility] ER SEIZURE [id number] 05/13/2016 00:10:00 05/13/2016 23:59:59 CLS Preadmit BRYAN DU MD [facility] WSo PREVIOUS DEMISE [id number] 02/12/2016 15:29:00 05/12/2016 00:01:00 DIS Outpatient BRYAN DU MD [facility] WSo PREVIOUS DEMISE [id number] 03/20/2016 14:28:00 03/22/2016 14:15:00 DIS Inpatient BRYAN DU MD [facility] LDRP LABOR [id number] 03/15/2016 21:48:00 03/15/2016 23:30:00 DIS Outpatient CURRY CASTRO MD [facility] ABD PAIN [id number] 01/31/2016 13:45:00 01/31/2016 23:59:59 CLS Outpatient BRYAN DU MD [facility] RAD PLACENTA PREVIA [id number] 10/30/2015 10:13:00 10/30/2015 23:59:59 CLS Outpatient BRYAN DU MD [facility] RAD SURVEY [id number] 08/14/2015 18:34:00 08/14/2015 20:28:00 DIS Emergency MORTEZA ALLISON APRN [facility] ER NAUSEA/VOMITING @ 11 WEEKS [id number] 10/15/2018 15:00:00 10/15/2018 23:59:59 CLS Outpatient FILEMON P[facility]
[2018-11-10] MEDS ORDERED: ORPHENADRINE 60 MG/2 ML (NORFLEX) AMP IM ONE (18:15)
--- NOTE | 2018-11-10 18:24 | ED General ---
General Chief Complaint: General Problems/Pain Stated Complaint: PAIN IN SIDE OF NECK Nursing Triage Note: Ambulatory to triage. Pt c/o sharp pain in the L side of neck that began this AM. Pt reports MORALES across forehead last night. Pt also c/o dizziness, lightheadedness, and nausea after meals. Pt reports taking four tylenol today with no relief. Tylenol last taken approximately one hour ago. Pt reports being two months . Nursing Sepsis Screen: No Definite Risk Source of Information: Patient Exam Limitations: No Limitations History of Present Illness Date Seen by Provider: Nov 10, 2018 Time Seen by Provider: 18:22 Initial Comments To ER with reports of sharp left sided posterior lateral neck pain that she awakened with this morning. Last night she had a headache but no neck pain. Today the headache is gone but the neck pain is there. She states that she's had for Tylenol today without relief. She is 2 months . No fevers or chills. No cough or sore throat. Timing/Duration: 1-2 Days Severity: Moderate Associated Systoms: Cough Allergies and Home Medications Allergies Coded Allergies: No Known Drug Allergies (Unverified , 08/14/15) Home Medications Ibuprofen 600 Mg Tablet, 600 MG PO Q6H Prescribed by: BRYAN DU on 04/15/18 0815 Levetiracetam 500 Mg Tablet, 500 MG PO BID Prescribed by: JING MANCILLA on 11/12/16 0658 Patient Home Medication List Home Medication List Reviewed: Yes Review of Systems Review of Systems Constitutional: see HPI EENTM: see HPI Respiratory: no symptoms reported Genitourinary: no symptoms reported Musculoskeletal: see HPI, neck pain Skin: no symptoms reported Psychiatric/Neurological: No Symptoms Reported Hematologic/Lymphatic: No Symptoms Reported Immunological/Allergic: no symptoms reported (I) Past Tcdhdiw-Lluarz-Tbcpgt Hx Patient Social History Alcohol Use: Denies Use Recreational Drug Use: No Smoking Status: Never a Smoker 2nd Hand Smoke Exposure: No Recent Foreign Travel: No Contact w/Someone Who Travel: No Recent Infectious Disease Expo: No Recent Hopitalizations: No Physical Abuse: No Sexual Abuse: No Immunizations Up To Date Tetanus Booster (TDap): Unknown Seasonal Allergies Seasonal Allergies: No Past Medical History Surgeries: No Respiratory: No Cardiac: Yes Hypertension Neurological: Yes Seizure Disorder : Yes Last Menstrual Period: Aug 03, 2018 Reproductive Disorders: No Genitourinary: No Gastrointestinal: No Musculoskeletal: No Endocrine: No HEENT: No Cancer: No Psychosocial: No Integumentary: No Blood Disorders: No Adverse Reaction/Blood Tranf: No Family Medical History Patient reports no known family medical history. No Pertinent Family Hx Physical Exam Vital Signs Vital Signs - First Documented 11/10/18 18:04 Temp 98.3 Pulse 85 Resp 12 B/P (MAP) 136/92 (107) Pulse Ox 100 O2 Delivery Room Air Capillary Refill : Less Than 3 Seconds Height, Weight, BMI Height: 5'3.00" Weight: 118lbs. 0.0oz. 53.745110yb; 24.6 BMI Method:Stated General Appearance: No Apparent Distress, WD/WN Eyes: Bilateral Eye Normal Inspection, Bilateral Eye PERRL, Bilateral Eye EOMI HEENT: PERRL/EOMI, TMs Normal, Other (poor dentition and gingival hyperplasia noted. Patient reports a past history of Dilantin use for seizure disorder) Neck: Full Range of Motion, Normal Inspection; No Lymphadenopathy (L), No Lymphadenopathy (R); Other (no palpable masses posterior auricular or anterior or cervical chain adenopathy.) Respiratory: Normal Breath Sounds, No Accessory Muscle Use, No Respiratory Distress Cardiovascular: Regular Rate, Rhythm, Normal Peripheral Pulses Gastrointestinal: Normal Bowel Sounds, Non Tender, Soft Extremity: Normal Capillary Refill, Normal Inspection Neurologic/Psychiatric: Alert, Oriented x3 Skin: Normal Color, Warm/Dry Progress/Results/Core Measures Suspected Sepsis Recent Fever Within 48 Hours: No Infection Criteria Present: None New/Unexplained Altered Menta: No Sepsis Screen: No Definite Risk SIRS Temperature:98.3 Pulse: 85 Respiratory Rate: 12 Blood Pressure 136 /92 Mean: 107 Results/Orders My Orders Orders - MORTEZA ALLISON APRN Orphenadrine Injection (Norflex Injectio (11/10/18 18:15) Medications Given in ED Current Medications Medications Dose Ordered Sig/Miguel Route Start Time Stop Time Status Last Admin Dose Admin Orphenadrine Citrate 60 mg ONCE ONCE IM 11/10/18 18:15 11/10/18 18:16 DC 11/10/18 18:26 60 MG Vital Signs/I&O 11/10/18 18:04 Temp 98.3 Pulse 85 Resp 12 B/P (MAP) 136/92 (107) Pulse Ox 100 O2 Delivery Room Air Capillary Refill : Less Than 3 Seconds Blood Pressure Mean: 107 Departure Impression Primary Impression: Torticollis Disposition: 01 HOME, SELF-CARE Condition: Stable Departure-Patient Inst. Decision time for Depature: 18:26 Referrals: BRYAN DU MD (PCP/Family) Primary Care Physician Patient Instructions: Torticollis, Adult Add. Discharge Instructions: 1. Warm compresses to her neck. Muscle relaxers as directed. Follow-up with your doctor later this week. All discharge instructions reviewed with patient and/or family. Voiced understanding. Scripts Cyclobenzaprine HCl (Cyclobenzaprine HCl) 5 Mg Tablet 5 MG PO TID PRN for PAIN-MODERATE, #14 TAB Prov: MORTEZA ALLISON APRN 11/10/18 MORTEZA ALLISON APRN Nov 10, 2018 18:24
[2018-11-10] MEDS ORDERED: CYCL5TAB PO ×2 (18:57→19:10)
[2018-11-10 19:09] VITALS: BP 136/92
== END 2018-11-10 19:09 | disposition home or self-care (01) ==
LOC: EDUNIT# 17:52 → ER 17:53
DX: O99.89 Other specified diseases and conditions complicating pregnancy, childbirth and the puerperium (principal); M43.6 Torticollis; O16.1 Unspecified maternal hypertension, first trimester; O99.351 Diseases of the nervous system complicating pregnancy, first trimester; G40.909 Epilepsy, unspecified, not intractable, without status epilepticus; Z3A.00 Weeks of gestation of pregnancy not specified
CPT/HCPCS: 96372; 99284

== ENCOUNTER → 2018-11-20 | Outpatient (CLI) | payer MEDICAID ==
[~2018-11-20] MED LIST changes: +CYCL5TAB PO
--- NOTE | 2018-11-20 14:16 | Diagnostic Imaging Report ---
INDICATION: dating. TECHNIQUE: Multiple real-time grayscale images were obtained over the gravid uterus. COMPARISON: None FINDINGS: There is a single live fetus in cephalic presentation. heart rate was recorded at 150 beats per minute. Placenta is anterior. Amniotic fluid volume is normal. Cervical length is 5.4 cm. Biometrical measurements are as follows: Biparietal 2.70 cm, age 14 weeks 6 days. Head circumference 10.26 cm, age 14 weeks 6 days. Abdominal circumference 8.54 cm, age 14 weeks 6 days. Femur length 1.32 cm, age 14 weeks 0 days. Sonographic estimate age: 14 weeks 5 days. Sonographic estimated date of delivery: 05/16/2019. Estimated Weight: 97 gm (+/- 14 gm). LMP percentile: 9%. heart rate: 150 beats per minute. number: 1 of 1. IMPRESSION: Single live IUP 14 weeks 5 days gestational age. The estimated date of confinement sonographically is 05/16/2019. Dictated by: Dictated on workstation # [id number]
== END ==
LOC: RAD 12:09
PROVIDERS: ATTEND Family Medicine
DX: Z34.92 Encounter for supervision of normal pregnancy, unspecified, second trimester (principal); Z3A.14 14 weeks gestation of pregnancy
CPT/HCPCS: 76805

== ENCOUNTER → 2018-12-15 | Outpatient (CLI) | payer MEDICAID ==
--- NOTE | 2018-12-15 13:38 | Diagnostic Imaging Report ---
INDICATION: survey. TECHNIQUE: Multiple real-time grayscale images were obtained over the gravid uterus. COMPARISON: 11/20/2018. FINDINGS: There is a single live fetus in a transverse presentation. Head appears to be maternal right. heart rate was recorded at 147 beats per minute. Placenta is anterior. Amniotic fluid volume is normal. survey demonstrates kidneys, bladder and stomach to be unremarkable. The brain is unremarkable. There is a four-chamber heart. There is a three-vessel cord with normal insertion. spine is unremarkable. Biometrical measurements are as follows: Biparietal 3.77 cm, age 17 weeks 4 days. Head circumference 14.58 cm, age 17 weeks 6 days. Abdominal circumference 12.10 cm, age 17 weeks 6 days. Femur length 5.68 cm, age 18 weeks 2 days. Sonographic estimate age: 18 weeks 0 days. Sonographic estimated date of delivery: 05/18/19. Estimated Weight: 216 gm (+/- 32 gm). LMP percentile: 25%. heart rate: 147 beats per minute. number: 1 of 1. IMPRESSION: Single live IUP approximately 18 weeks 0 days gestational age. Estimated date of confinement sonographically is 05/18/2019. Dictated by: Dictated on workstation # [id number]
== END ==
LOC: RAD 10:20
PROVIDERS: ATTEND Family Medicine
DX: Z36.89 Encounter for other specified antenatal screening (principal); Z3A.18 18 weeks gestation of pregnancy
CPT/HCPCS: 76805

== ENCOUNTER 2019-04-26 14:27 | Outpatient (CLI) | payer MEDICAID ==
[~2019-04-26] VITALS: Ht 160 cm; Wt 64.1 kg
--- NOTE | 2019-04-26 14:34 | NUR ---
SHAYNE ONEIL presented to unit via W/C from ED, accompanied by FRIEND, with c/o LOWER BACK PAIN; DIZZINESS. SHAYNE ONEIL weighed, gowned, voided, and to bed. EFHM and TOCO applied, VS taken. SHAYNE ONEIL oriented to bed controls, call light, TV, heat, and A/C controls.
[2019-04-26 14:42] VITALS: BP 130/80
[2019-04-26 15:04] LABS: BILIRUBIN,URINE NEGATIVE (NEGATIVE); CLARITY,URINE CLEAR; COLOR,URINE YELLOW; GLUCOSE, URINE (UA) NEGATIVE (NEGATIVE); KETONES,URINE NEGATIVE (NEGATIVE); LEUKOCYTE ESTERASE ,URINE 2+ (NEGATIVE); NITRITE,URINE NEGATIVE (NEGATIVE); PH,URINE 7 (5-9); PROTEIN,URINE NEGATIVE (NEGATIVE); UROBILINOGEN,URINE NORMAL (NORMAL)
[2019-04-26 15:14] LABS: BACTERIA,URINE TRACE /HPF
[2019-04-26 15:16] LABS: AMPHETAMINE SCREEN, URINE NEGATIVE (NEGATIVE); BARBITURATE SCREEN URINE NEGATIVE (NEGATIVE); BENZODIAZEPINES SCREEN URINE NEGATIVE (NEGATIVE); CANNABINOID SCREEN, URINE NEGATIVE (NEGATIVE); COCAINE SCREEN URINE NEGATIVE (NEGATIVE); METHADONE STAT NEGATIVE (NEGATIVE); METHAMPHETAMINE SCREEN URINE S NEGATIVE (NEGATIVE); OPIATE SCREEN URINE NEGATIVE (NEGATIVE); OXYCODONE STAT NEGATIVE (NEGATIVE); PROPOXYPHENE STAT NEGATIVE (NEGATIVE); TRICYCLIC ANTIDEPRESSANTS SCRE NEGATIVE (NEGATIVE)
--- NOTE | 2019-04-26 16:19 | NUR ---
DR. DU NOTIFIED OF PT'S ARRIVAL, C/O, GESTATION, REVIEW OF STRIP, UA RESULTS, SVE X2, VS AND PAIN LEVEL. NEW ORDERS RECEIVED FOR DISCHARGE HOME, PT TO KEEP SCHEDULED FOLLOW UP APPOINTMENT.
--- NOTE | 2019-04-26 16:21 | NUR ---
REFER TO LABOR FLOW SHEET.
--- NOTE | 2019-04-26 16:32 | NUR ---
DISCHARGE PAPERS PROVIDED AND REVIEWED WITH PT, PT VERBALIZES UNDERSTANDING AND DENIES ANY QUESTIONS AT THIS TIME. PAPER SIGNED.
--- NOTE | 2019-04-26 16:35 | NUR ---
PT DISCHARGED FROM [facility] TO [facility]ORY IN STABLE CONDITION [facility] BY FRIEND.
--- NOTE | 2019-04-29 16:22 | Physician Query-Final Dx ---
ASHER SALMON 04/29/19 1622: Final Diagnosis Give Final Diagnosis Please give Final Diagnosis Dr Du Please give a final diagonsis. Please include the weeks of gestation. thank you BRYAN DU MD 05/02/19 2206: Final Diagnosis Give Final Diagnosis 1. IUP at 37 weeks 2. Non-labor ASHER SALMON Apr 29, 2019 16:22 BRYAN DU MD May 02, 2019 22:06
[2019-05-04] MEDS ORDERED: OXC5T PO (06:59)
[2019-05-04] MEDS ORDERED: DOCU100C37 PO (06:59)
[2019-05-04] MEDS ORDERED: ACET-77 PO (06:59)
[2019-05-04] MEDS ORDERED: IBUP-1780 PO (06:59)
== END 2019-04-26 16:35 | disposition home or self-care (01) ==
LOC: WSo 14:27 → LDRP 14:28 → WSo 16:35
PROVIDERS: ATTEND Family Medicine
DX: O47.1 False labor at or after 37 completed weeks of gestation (principal); Z3A.37 37 weeks gestation of pregnancy
CPT/HCPCS: 80306; 81000; 99213

== ENCOUNTER 2019-05-02 20:06 | Inpatient (IN) | payer MEDICAID | END 2019-05-04 19:55 | disposition home or self-care (01) | LOC: WSo 20:06 → LDRP 20:08 ==

== ENCOUNTER 2019-07-10 14:45 | Emergency (ER) | payer MEDICAID ==
[~2019-07-10] VITALS: Ht 160 cm; Wt 54.4 kg
[~2019-07-10 14:45] MED LIST changes: +ACET-77 PO; +DOCU100C37 PO; +IBUP-1780 PO; +OXC5T PO
--- NOTE | 2019-07-10 14:54 | ED General ---
General Stated Complaint: POSS SEIZURE Source of Information: Patient Exam Limitations: No Limitations History of Present Illness Date Seen by Provider: Jul 10, 2019 Time Seen by Provider: 14:51 Initial Comments To ER per EMS from her an air conditioned home in [facility] with reports of possible seizure. She was apparently talking to her on the phone, she then dropped the phone with the line went , he thought he could hear her having a seizure in the background so he summoned 911. She has a history of epilepsy and takes Keppra twice a day. He complains of a headache, midline lower mandible pain, denies hitting her head that she is aware of but states that she may have and just not known. She states that when she awakened this morning she did not have headache or jaw pain. Timing/Duration: 1-2 Days Severity: Moderate Associated Systoms: Headaches Allergies and Home Medications Allergies Coded Allergies: No Known Drug Allergies (Unverified , 08/14/15) Home Medications Levetiracetam 500 Mg Tablet, 500 MG PO BID Prescribed by: JING MANCILLA on 11/12/16 0658 Patient Home Medication List Home Medication List Reviewed: Yes Review of Systems Review of Systems Constitutional: see HPI; No chills, No fever; other (she was measured at 101 at home tympanic temperature. 99 here without intervention other than the air conditioned ambulance. She otherwise denies recent fevers or chills or illness.) EENTM: see HPI Respiratory: no symptoms reported Genitourinary: no symptoms reported Musculoskeletal: no symptoms reported Skin: no symptoms reported Psychiatric/Neurological: See HPI, Headache Past Clfvqvo-Tuzzgt-Hnmdwh Hx Patient Social History 2nd Hand Smoke Exposure: No Recent Hopitalizations: No Immunizations Up To Date Tetanus Booster (TDap): Unknown Seasonal Allergies Seasonal Allergies: No Past Medical History Surgeries: No Respiratory: No Cardiac: No Hypertension Neurological: Yes Seizure Disorder Reproductive Disorders: No Genitourinary: No Gastrointestinal: No Musculoskeletal: No Endocrine: No HEENT: No Cancer: No Psychosocial: No Integumentary: No Blood Disorders: No Adverse Reaction/Blood Tranf: No Family Medical History Patient reports no known family medical history. No Pertinent Family Hx Physical Exam Vital Signs Vital Signs - First Documented 07/10/19 14:50 Temp 99.5 Pulse 89 Resp 18 B/P (MAP) 141/100 (114) Pulse Ox 99 Capillary Refill : Height, Weight, BMI Height: 5'3.00" Weight: 140lbs. 0.0oz. 63.584751xu; 24.8 BMI Method:Stated General Appearance: No Apparent Distress, WD/WN Eyes: Bilateral Eye Normal Inspection, Bilateral Eye PERRL, Bilateral Eye EOMI HEENT: PERRL/EOMI, TMs Normal, Other (very poor dentition with gingivitis but no abscess or swelling visualized any portion of the face.) Neck: Full Range of Motion, Normal Inspection Respiratory: Normal Breath Sounds, No Accessory Muscle Use, No Respiratory Distress Gastrointestinal: Normal Bowel Sounds, Non Tender, Soft Extremity: Normal Capillary Refill, Normal Inspection Neurologic/Psychiatric: Alert, Oriented x3 Progress/Results/Core Measures Suspected Sepsis SIRS Temperature: Pulse: Respiratory Rate: Laboratory Tests 07/10/19 14:57: White Blood Count 7.4 Blood Pressure / Mean: Laboratory Tests 07/10/19 14:57: Creatinine 0.79, Platelet Count 300, Total Bilirubin 0.2 Results/Orders Lab Results Laboratory Tests Test 07/10/19 14:57 Range/Units White Blood Count 7.4 4.3-11.0 10^3/uL Red Blood Count 4.26 L 4.35-5.85 10^6/uL Hemoglobin 9.4 L 11.5-16.0 G/DL Hematocrit 31 L 35-52 % Mean Corpuscular Volume 74 L 80-99 FL Mean Corpuscular Hemoglobin 22 L 25-34 PG Mean Corpuscular Hemoglobin Concent 30 L 32-36 G/DL Red Cell Distribution Width 22.7 H 10.0-14.5 % Platelet Count 300 130-400 10^3/uL Mean Platelet Volume 11.3 H 7.4-10.4 FL Neutrophils (%) (Auto) 68 42-75 % Lymphocytes (%) (Auto) 23 12-44 % Monocytes (%) (Auto) 8 0-12 % Eosinophils (%) (Auto) 2 0-10 % Basophils (%) (Auto) 0 0-10 % Neutrophils # (Auto) 5.0 1.8-7.8 X 10^3 Lymphocytes # (Auto) 1.7 1.0-4.0 X 10^3 Monocytes # (Auto) 0.6 0.0-1.0 X 10^3 Eosinophils # (Auto) 0.1 0.0-0.3 10^3/uL Basophils # (Auto) 0.0 0.0-0.1 10^3/uL Urine Color YELLOW Urine Clarity CLEAR Urine pH 6 5-9 Urine Specific [place] 1.020 1.016-1.022 Urine Protein 1+ H NEGATIVE Urine Glucose (UA) NEGATIVE NEGATIVE Urine Ketones NEGATIVE NEGATIVE Urine Nitrite NEGATIVE NEGATIVE Urine Bilirubin NEGATIVE NEGATIVE Urine Urobilinogen NORMAL NORMAL MG/DL Urine Leukocyte Esterase 1+ H NEGATIVE Urine RBC (Auto) 5+ H NEGATIVE Urine RBC 50-100 H /HPF Urine WBC RARE /HPF Urine Squamous Epithelial Cells 0-2 /HPF Urine Crystals NONE /LPF Urine Bacteria TRACE /HPF Urine Casts NONE /LPF Urine Mucus NEGATIVE /LPF Urine Culture Indicated NO Sodium Level 139 135-145 MMOL/L Potassium Level 4.1 3.6-5.0 MMOL/L Chloride Level 110 H 98-107 MMOL/L Carbon Dioxide Level 19 L 21-32 MMOL/L Anion Gap 10 5-14 MMOL/L Blood Urea Nitrogen 9 7-18 MG/DL Creatinine 0.79 0.60-1.30 MG/DL Estimat Glomerular Filtration Rate > 60 BUN/Creatinine Ratio 11 Glucose Level 85 70-105 MG/DL Calcium Level 8.7 8.5-10.1 MG/DL Corrected Calcium 8.6 8.5-10.1 MG/DL Total Bilirubin 0.2 0.1-1.0 MG/DL Aspartate Amino Transf (AST/SGOT) 17 5-34 U/L Alanine Aminotransferase (ALT/SGPT) 9 0-55 U/L Alkaline Phosphatase 43 40-136 U/L Total Protein 7.0 6.4-8.2 GM/DL Albumin 4.1 3.2-4.5 GM/DL Serum Test, Qualitative NEGATIVE NEGATIVE My Orders Orders - MORTEZA ALLISON APRN Cbc With Automated Diff (07/10/19 14:50) Hcg,Qualitative Serum (07/10/19 14:50) Comprehensive Metabolic Panel (07/10/19 14:50) Ua Culture If Indicated (07/10/19 14:50) Ed Iv/Invasive Line Start (07/10/19 14:50) Ct Head/Maxillofacial Wo (07/10/19 14:50) Ketorolac Injection (Toradol Injection) (07/10/19 15:00) Medications Given in ED Current Medications Medications Dose Ordered Sig/Miguel Route Start Time Stop Time Status Last Admin Dose Admin Ketorolac Tromethamine 15 mg ONCE ONCE IVP 07/10/19 15:00 07/10/19 15:01 DC 07/10/19 15:05 15 MG Vital Signs/I&O 07/10/19 14:50 Temp 99.5 Pulse 89 Resp 18 B/P (MAP) 141/100 (114) Pulse Ox 99 Capillary Refill : Departure Impression Primary Impression: Headache Qualified Codes: R51 - Headache Disposition: 01 HOME, SELF-CARE Condition: Stable Departure-Patient Inst. Decision time for Depature: 15:53 Referrals: BRYAN DU MD (PCP/Family) Primary Care Physician Patient Instructions: Headache, Adult (DC) Add. Discharge Instructions: 1. Return to ER for any concerns 2. Follow-up with your doctor next week MORTEZA ALLISON APRN Jul 10, 2019 14:54
[2019-07-10] MEDS ORDERED: KETOROLAC 30 MG/ML VIAL IVP ONE (15:00)
[2019-07-10 15:08] LABS: BASOPHILS % (AUTO) 0 % (0-10); EOSINOPHILS # (AUTO) 0.1 10^3/uL (0.0-0.3); EOSINOPHILS % (AUTO) 2 % (0-10); HEMATOCRIT 31 % (35-52); HEMOGLOBIN 9.4 G/DL (11.5-16.0); LYMPHOCYTES # (AUTO) 1.7 X 10^3 (1.0-4.0); LYMPHOCYTES % (AUTO) 23 % (12-44); MEAN CORPUSCULAR HEMOGLOBIN 22 PG (25-34); MEAN CORPUSCULAR HGB CONC 30 G/DL (32-36); MEAN CORPUSCULAR VOLUME 74 FL (80-99); MEAN PLATELET VOLUME 11.3 FL (7.4-10.4); MONOCYTES # (AUTO) 0.6 X 10^3 (0.0-1.0); MONOCYTES % (AUTO) 8 % (0-12); NEUTROPHILS % (AUTO) 68 % (42-75); PLATELET COUNT 300 10^3/uL (130-400); RED CELL DISTRIBUTION WIDTH 22.7 % (10.0-14.5); WHITE BLOOD COUNT 7.4 10^3/uL (4.3-11.0)
[2019-07-10 15:09] LABS: BILIRUBIN,URINE NEGATIVE (NEGATIVE); CLARITY,URINE CLEAR; COLOR,URINE YELLOW; GLUCOSE, URINE (UA) NEGATIVE (NEGATIVE); KETONES,URINE NEGATIVE (NEGATIVE); LEUKOCYTE ESTERASE ,URINE 1+ (NEGATIVE); NITRITE,URINE NEGATIVE (NEGATIVE); PH,URINE 6 (5-9); PROTEIN,URINE 1+ (NEGATIVE); UROBILINOGEN,URINE NORMAL (NORMAL)
[2019-07-10 15:20] LABS: BACTERIA,URINE TRACE /HPF; RBC,URINE 50-100 /HPF; SQUAMOUS EPITHELIAL CELL,UR 0-2 /HPF; WBC,URINE RARE /HPF
[2019-07-10 15:31] LABS: ALANINE AMINOTRANSFERASE 9 U/L (0-55); ALBUMIN 4.1 GM/DL (3.2-4.5); ALKALINE PHOSPHATASE 43 U/L (40-136); BILIRUBIN,TOTAL 0.2 MG/DL (0.1-1.0); BUN/CREATININE RATIO 11; CALCIUM 8.7 MG/DL (8.5-10.1); CARBON DIOXIDE 19 MMOL/L (21-32); CHLORIDE 110 MMOL/L (98-107); CREATININE SERUM 0.79 MG/DL (0.60-1.30); GFR ESTIMATED > 60; GLUCOSE 85 MG/DL (70-105); POTASSIUM 4.1 MMOL/L (3.6-5.0); SODIUM 139 MMOL/L (135-145)
--- NOTE | 2019-07-10 15:38 | Diagnostic Imaging Report ---
PROCEDURE: CT head and maxillofacial without contrast. TECHNIQUE: Multiple contiguous axial images were obtained through the head and facial bones without the use of intravenous contrast. Auto Exposure Controls were utilized during the CT exam to meet ALARA standards for radiation dose reduction. INDICATION: Seizure. FINDINGS: CT head: There is no mass, shift of the midline or hemorrhage to suggest an acute intracranial abnormality. The ventricles are not abnormally dilated and stable in size when compared to the prior exam of 10/03/2017. The bone windows show no evidence for a fracture or for a destructive lesion. The orbits are symmetrical and within normal limits. The sinuses, where visualized, are generally clear. IMPRESSION: 1. There is no evidence for an acute intracranial abnormality and there is no sign of a mass lesion. 2. If clinical concern regarding an underlying abnormality persists, then MRI would be recommended for further study. CT maxillofacial: There are no prior studies for comparison. The nasal bone, orbital rims, zygomatic arches and mandible are intact. The sinuses are generally clear although there is a 1.5 cm retention cyst on the floor in the left maxillary antrum. The orbits are symmetrical and within normal limits. There does appear to be sclerosis of the mastoid air cells, bilaterally. This may be a sequela of prior episodes of mastoiditis. IMPRESSION: 1. There is no evidence for an acute bony abnormality. 2. The sinuses are generally clear but there is a 1.5 cm retention cyst in the left maxillary antrum. 3. The appearance of the mastoid air cells may be a sequela of prior episodes of mastoiditis. Dictated by: Dictated on workstation # [id number]
[2019-07-10] MEDS ORDERED: ACETAMINOPHEN 325 MG TABLET PO ONE (16:00)
--- NOTE | 2019-07-10 16:00 | NUR ---
1000CC NS FROM EMS INFUSED
[2019-07-10 16:04] VITALS: BP 135/80
== END 2019-07-10 16:04 | disposition home or self-care (01) ==
LOC: EDUNIT# 14:45 → ER 14:46
DX: R51 Headache (principal); G40.909 Epilepsy, unspecified, not intractable, without status epilepticus; I10 Essential (primary) hypertension
CPT/HCPCS: 36415; 70450; 70486; 80053; 81000; 84703; 85025; 96374

== ENCOUNTER 2019-08-01 14:41 | Emergency (ER) | payer MEDICAID ==
[~2019-08-01] VITALS: Ht 160 cm; Wt 60.6 kg
--- NOTE | 2019-08-01 15:05 | ED Integumentary General ---
General Chief Complaint: Bite-Animal/Human/Insect Stated Complaint: BEE STING R ARM SWELLING Nursing Triage Note: Pt amb to triage with c/o bee sting to Rt superior bicep. Pt reports bee stung her yesterday @ approx 1400. Pt reports she applied "Afterbite" cream to area. Pt reports on this day area became inflammed and began to swell. Denies SOA. Source: patient Exam Limitations: no limitations History of Present Illness Date Seen by Provider: Aug 01, 2019 Time Seen by Provider: 15:04 Initial Comments 23-year-old female patient presents to the emergency department with complaints of a bee sting to the right proximal arm. Incident occurred yesterday at approximately 1400. Patient reports applying after bite cream without improvement. Now reports redness and swelling. Also complains of pruritus. Patient states she came to the emergency department because "this has never happened before when I have been stung by a bee." Location Injury Occurred: home Timing/Duration: yesterday Location: extremities (rt bicep) Possible Cause: insect sting (bee sting) Modifying Factors: worse with scratching, worse with other (no improvement with "after bite" cream) Allergies and Home Medications Allergies Coded Allergies: No Known Drug Allergies (Unverified , 08/14/15) Home Medications Levetiracetam 500 Mg Tablet, 500 MG PO BID Prescribed by: JING MANCILLA on 11/12/16 0658 Prednisone 20 Mg Tab, 40 MG PO DAILY Prescribed by: TAMERA PUENTE on 08/01/19 1510 Patient Home Medication List Home Medication List Reviewed: Yes Review of Systems Review of Systems Constitutional: No chills, No diaphoresis, No dizziness, No fever, No malaise EENTM: No ear pain, No eye pain, No tearing, No hoarseness, No mouth pain, No mouth swelling, No nose congestion, No throat pain, No throat swelling Respiratory: No cough, No phlegm, No short of breath, No stridor, No wheezing Cardiovascular: no symptoms reported Gastrointestinal: no symptoms reported Musculoskeletal: No joint pain, No joint swelling Skin: see HPI Psychiatric/Neurological: Denies Headache All Other Systems Reviewed Negative Unless Noted: Yes (Negative excepted noted.) Past Apvnngq-Oppser-Fgblyy Hx Past Med/Social Hx: Reviewed Nursing Past Med/Soc Hx Patient Social History Alcohol Use: Denies Use Recreational Drug Use: No Smoking Status: Former Smoker Type Used: Cigarettes 2nd Hand Smoke Exposure: No Recent Foreign Travel: No Contact w/Someone Who Travel: No Recent Infectious Disease Expo: No Recent Hopitalizations: No Immunizations Up To Date Tetanus Booster (TDap): Unknown Seasonal Allergies Seasonal Allergies: No Past Medical History Surgeries: No Respiratory: No Cardiac: No Hypertension Neurological: Yes Seizure Disorder Reproductive Disorders: No Genitourinary: No Gastrointestinal: No Musculoskeletal: No Endocrine: No HEENT: No Cancer: No Psychosocial: No Integumentary: No Blood Disorders: No Adverse Reaction/Blood Tranf: No Family Medical History Reviewed Nursing Family Hx Patient reports no known family medical history. No Pertinent Family Hx Physical Exam Vital Signs Vital Signs - First Documented 08/01/19 14:44 Temp 36.6 Pulse 57 Resp 16 B/P (MAP) 148/93 (111) Pulse Ox 98 O2 Delivery Room Air Capillary Refill : Less Than 3 Seconds General Appearance: WD/WN, no apparent distress HEENT: PERRL/EOMI, pharynx normal Neck: supple, normal inspection Cardiovascular: normal peripheral pulses, regular rate, rhythm, no edema, no murmur Respiratory: lungs clear, normal breath sounds, no respiratory distress, no accessory muscle use Extremities: normal range of motion, non-tender, normal capillary refill, swelling (puncture site noted to the right bicep with a slightly raised, light pink blush noted surrounding the puncture site consistent with a wheal. Minimal warmth noted.) Neurologic/Psychiatric: alert, normal mood/affect, oriented x 3 Skin: normal color, warm/dry, other (puncture site noted to the right medial bicep with a slightly raised, light pink blush noted surrounding the puncture site consistent with a wheal. Minimal warmth noted.) Skin Problem Location: upper extremities (right medial bicep) Skin Problem Character: other (puncture site noted to the right medial bicep with a slightly raised, light pink blush noted surrounding the puncture site consistent with a wheal. Minimal warmth noted.) Progress/Results/Core Measures Results/Orders Vital Signs/I&O 08/01/19 08/01/19 14:44 15:25 Temp 36.6 36.6 Pulse 57 57 Resp 16 16 B/P (MAP) 148/93 (111) 148/93 (111) Pulse Ox 98 98 O2 Delivery Room Air 2 Blood Pressure Mean: 111 Departure Communication (Admissions) Patient seen and evaluated. Plan for discharge to home. Impression Primary Impression: Bee sting Qualified Codes: T63.441A - Toxic effect of venom of bees, accidental (unintentional), initial encounter Disposition: HOME, SELF-CARE Condition: Improved Departure-Patient Inst. Decision time for Depature: 15:10 Referrals: BRYAN DU MD (PCP/Family) Primary Care Physician Patient Instructions: Insect Bites and Stings Add. Discharge Instructions: All discharge instructions reviewed with patient and/or family. Voiced understanding. Medications as instructed. Dawn oarf-tkj-dnidndw as directed for itching or rash. Benadryl amep-tat-ihrzofv as directed for breakthrough s ymptoms. Follow-up with your family practitioner if needed. Return to the emergency department for worsened symptoms or any other concerns. Scripts Prednisone (Prednisone) 20 Mg Tab 40 MG PO DAILY, #10 TAB 0 Refills Prov: TAMERA PUENTE 08/01/19 Copy Copies To 1: BRYAN DU MD, GRETCHEN L PA Aug 01, 2019 15:04
[2019-08-01] MEDS ORDERED: PRD20T PO (15:10)
[2019-08-01 15:25] VITALS: BP 148/93
== END 2019-08-01 15:25 | disposition home or self-care (01) ==
LOC: ER 14:41 → EDUNIT# 14:41 → ER 15:25
DX: T63.441A Toxic effect of venom of bees, accidental (unintentional), initial encounter (principal); I10 Essential (primary) hypertension; G40.909 Epilepsy, unspecified, not intractable, without status epilepticus; Z87.891 Personal history of nicotine dependence
CPT/HCPCS: 99283

== ENCOUNTER 2019-08-10 18:48 | Emergency (ER) | payer MEDICAID ==
[~2019-08-10] VITALS: Ht 160 cm; Wt 58.1 kg
[~2019-08-10 18:48] MED LIST changes: +PRD20T PO
[2019-08-10] MEDS ORDERED: LACTATED RINGERS 1,000 ML IV ONE ×2 (19:14→20:07)
[2019-08-10 19:34] LABS: BASOPHILS % (AUTO) 0 % (0-10); EOSINOPHILS # (AUTO) 0.1 10^3/uL (0.0-0.3); EOSINOPHILS % (AUTO) 1 % (0-10); HEMATOCRIT 34 % (35-52); HEMOGLOBIN 10.8 G/DL (11.5-16.0); LYMPHOCYTES # (AUTO) 1.6 X 10^3 (1.0-4.0); LYMPHOCYTES % (AUTO) 14 % (12-44); MEAN CORPUSCULAR HEMOGLOBIN 23 PG (25-34); MEAN CORPUSCULAR HGB CONC 32 G/DL (32-36); MEAN CORPUSCULAR VOLUME 74 FL (80-99); MEAN PLATELET VOLUME 10.8 FL (7.4-10.4); MONOCYTES % (AUTO) 9 % (0-12); NEUTROPHILS # (AUTO) 8.8 X 10^3 (1.8-7.8); NEUTROPHILS % (AUTO) 76 % (42-75); PLATELET COUNT 316 10^3/uL (130-400); RED CELL DISTRIBUTION WIDTH 19.6 % (10.0-14.5); WHITE BLOOD COUNT 11.6 10^3/uL (4.3-11.0)
[2019-08-10 19:35] LABS: BILIRUBIN,URINE NEGATIVE (NEGATIVE); CLARITY,URINE CLEAR; COLOR,URINE YELLOW; GLUCOSE, URINE (UA) NEGATIVE (NEGATIVE); KETONES,URINE NEGATIVE (NEGATIVE); LEUKOCYTE ESTERASE ,URINE NEGATIVE (NEGATIVE); NITRITE,URINE NEGATIVE (NEGATIVE); PH,URINE 5 (5-9); PROTEIN,URINE NEGATIVE (NEGATIVE); UROBILINOGEN,URINE NORMAL (NORMAL)
[2019-08-10 19:43] LABS: INR 1.1 (0.8-1.4); PROTHROMBIN TIME PATIENT 14.4 SEC (12.2-14.7)
[2019-08-10 19:43] LABS: BACTERIA,URINE TRACE /HPF; WBC,URINE RARE /HPF
[2019-08-10 19:50] LABS: AMPHETAMINE SCREEN, URINE NEGATIVE (NEGATIVE); BARBITURATE SCREEN URINE NEGATIVE (NEGATIVE); BENZODIAZEPINES SCREEN URINE NEGATIVE (NEGATIVE); CANNABINOID SCREEN, URINE NEGATIVE (NEGATIVE); COCAINE SCREEN URINE NEGATIVE (NEGATIVE); METHADONE STAT NEGATIVE (NEGATIVE); METHAMPHETAMINE SCREEN URINE S NEGATIVE (NEGATIVE); OPIATE SCREEN URINE NEGATIVE (NEGATIVE); OXYCODONE STAT NEGATIVE (NEGATIVE); PROPOXYPHENE STAT NEGATIVE (NEGATIVE); TRICYCLIC ANTIDEPRESSANTS SCRE NEGATIVE (NEGATIVE)
[2019-08-10 19:54] LABS: ALANINE AMINOTRANSFERASE 13 U/L (0-55); ALBUMIN 4.4 GM/DL (3.2-4.5); ALKALINE PHOSPHATASE 58 U/L (40-136); AMYLASE 88 U/L (25-125); BILIRUBIN,TOTAL 0.3 MG/DL (0.1-1.0); BUN/CREATININE RATIO 15; CALCIUM 9.2 MG/DL (8.5-10.1); CARBON DIOXIDE 21 MMOL/L (21-32); CHLORIDE 109 MMOL/L (98-107); CREATINE KINASE 63 U/L (29-168); CREATININE SERUM 0.78 MG/DL (0.60-1.30); GFR ESTIMATED > 60; GLUCOSE 87 MG/DL (70-105); POTASSIUM 3.6 MMOL/L (3.6-5.0); SODIUM 140 MMOL/L (135-145); TOTAL PROTEIN 7.4 GM/DL (6.4-8.2)
[2019-08-10 19:58] LABS: ACETAMINOPHEN < 10 UG/ML (10-30)
--- NOTE | 2019-08-10 20:01 | Diagnostic Imaging Report ---
INDICATION: Headaches and dizziness and history of seizures. Noncontrast brain CT performed and compared with 07/10/2019. There are no extra-axial fluid collections. No intracranial hemorrhage. No intracranial mass or mass effect. No midline shift. The ventricles are normal in size and position. There are no focal parenchymal abnormalities in the brain. Calvarial windows are unremarkable. IMPRESSION: Negative noncontrast brain CT. No change from the previous study. Dictated by: Dictated on workstation # [id number]
--- NOTE | 2019-08-10 20:03 | Diagnostic Imaging Report ---
INDICATION: Cough, chest pain, and shortness of breath. PA and lateral chest obtained at 07:47 p.m. and compared to 10/21/2018. Heart and mediastinal silhouette are normal in appearance. The lungs are clear. There is no pneumothorax or pleural fluid. IMPRESSION: Negative chest. Dictated by: Dictated on workstation # [id number]
[2019-08-10 20:14] LABS: CREATINE KINASE MB 0.4 NG/ML (<6.6); TSH (THYROID ANALYZER) 1.37 UIU/ML (0.35-4.94)
--- NOTE | 2019-08-10 20:14 | Diagnostic Imaging Report ---
INDICATION: Jaw pain. CT maxillofacial obtained with axial slices without contrast and sagittal and coronal reconstructions. Soft tissue windows in the facial region demonstrate no evidence of abscess or soft tissue edema or overt focal inflammatory change. There is no intraorbital lesion. The paranasal sinuses show no fluid levels. There are small retention cysts versus polyps in the left maxillary sinus with minimal retention cyst or polyp in the right maxillary sinus. Bony windows show no acute bony abnormality. There appear to be multifocal dental caries. IMPRESSION: No acute bony abnormality of the maxillofacial region. There is no soft tissue edema or hematoma. There are retention cysts versus polyps in both maxillary sinuses left greater than right. There are no sinus fluid levels. There are scattered dental caries noted. The mastoid air cells are hypoplastic on both sides, especially on the right. Dictated by: Dictated on workstation # [id number]
--- NOTE | 2019-08-10 20:27 | ED General ---
General Chief Complaint: General Problems/Pain Stated Complaint: DIZZY,JAW HURTING Nursing Triage Note: Pt to Rm 6 via WC with C/O jaw pain/dizziness/headache since approx 1700 this afternoon. Pt states she has a Hx of seizures and takes her Keppra regularly. Pt slightly confused upon examination when answering questions. Pt states she hasn't taken any meds for the pain prior to arrival. Nursing Sepsis Screen: No Definite Risk Source of Information: Patient History of Present Illness Date Seen by Provider: Aug 10, 2019 Time Seen by Provider: 19:05 Initial Comments PT ARRIVES VIA POV, WHEELCHAIR ON ARRIVAL--OLDER MALE BROUGHT PT IN BY POV, AND HAS PT'S CHILD WITH HIM PT C/O DIZZINESS C/O JAW PAIN C/O MILD HEADACHE ALL OVER STATES "THE LAST THING I REMEMBER I WAS CHANGING MY SON'S DIAPER" --AROUND 1700 OR 1800 STATES SHE DOES NOT KNOW IF SHE PASSED OUT OR WHAT HAPPENED. STATES SHE WAS SITTING IN A CHAIR STATES SHE DOES NOT KNOW IF SHE HAD A SEIZURE OR NOT, BUT HAS A HISTORY OF SEIZURES. NO ONE ELSE WAS HOME AT THE TIME STATES SHE TAKES KEPPRA, AND DENIES ANY MISSED DOSES. STATES SHE TOOK HER REGULAR DOSE THIS AM PT DOES NOT APPEAR POST ICTAL PT IS POOR HISTORIAN, AND HAS NO IDEA WHEN HER INFANT SON'S BIRTHDAY IS. STATES "SOME TIME THIS YEAR". ON REVIEW OF OLD RECORDS, PT DELIVERED 05/03/19 VIA C- SECTION FOR MALPRESENTATION. LAST DELIVERY PRIOR TO THAT WAS 04/20/18. DELIVERY PRIOR TO THAT WAS 04/20/16. PT IS --STATES HER 2ND CHILD AFTER , AND 3 OTHER CHILDREN HAVE ALL PREVIOUSLY BEEN REMOVED FROM THE HOME AND ARE IN FOSTER CARE, PRIOR TO THE OF HER LAST CHILD. PT STATES HER IS IN INTERMEDIATE/[facility]. NO ONE ELSE LIVES AT HOME WITH PT. LMP--NOW, BEGAN 3 DAYS AGO. NO CONTROL PT WITH MULTIPLE VISITS FOR VARIOUS COMPLAINTS. PCP: DR DU Allergies and Home Medications Allergies Coded Allergies: No Known Drug Allergies (Unverified , 08/14/15) Home Medications Levetiracetam 500 Mg Tablet, 500 MG PO BID Prescribed by: JING MANCILLA on 11/12/16 0658 Prednisone 20 Mg Tab, 40 MG PO DAILY Prescribed by: TAMERA PUENTE on 08/01/19 1510 Patient Home Medication List Home Medication List Reviewed: Yes Review of Systems Review of Systems Constitutional: see HPI EENTM: see HPI Respiratory: no symptoms reported; No cough, No short of breath Cardiovascular: No chest pain, No edema, No palpitations Gastrointestinal: no symptoms reported Genitourinary: no symptoms reported LMP: Aug 07, 2019 Musculoskeletal: no symptoms reported Skin: no symptoms reported Psychiatric/Neurological: See HPI Hematologic/Lymphatic: No Symptoms Reported Immunological/Allergic: no symptoms reported Past Kggftjx-Ndssmv-Lghorn Hx Past Med/Social Hx: Reviewed and Corrections made Patient Social History Alcohol Use: Denies Use Recreational Drug Use: Yes (DENIES DRUG USE, BUT UDS + FOR AMPHETAMINES ) Drug of Choice: DENIES BUT UDS + FOR AMPHETAMINES Smoking Status: Current Everyday Smoker (1 PPD) Type Used: Cigarettes (1 PPD) 2nd Hand Smoke Exposure: No Recent Foreign Travel: No Contact w/Someone Who Travel: No Recent Infectious Disease Expo: No Recent Hopitalizations: No Physical Abuse: No Sexual Abuse: No Mistreated: No Fear: No Immunizations Up To Date Tetanus Booster (TDap): Unknown Seasonal Allergies Seasonal Allergies: No Past Medical History Surgeries: Yes ( 05/03/19) Section Respiratory: No Cardiac: Yes Hypertension Neurological: Yes Seizure Disorder Hx : 5 Hx Para: 5 Hx Total # of Abortions (Sp): 0 (2ND CHILD AFTER . 3 OLDEST CHILDREN ALL IN FOSTER CARE) Reproductive Disorders: No Genitourinary: No Gastrointestinal: No Musculoskeletal: No Endocrine: No HEENT: No Cancer: No Psychosocial: No Integumentary: No Blood Disorders: No Adverse Reaction/Blood Tranf: No Family Medical History Patient reports no known family medical history. Physical Exam Vital Signs Vital Signs - First Documented 08/10/19 19:08 Temp 37.7 Pulse 86 Resp 19 B/P (MAP) 132/91 (105) Pulse Ox 100 O2 Delivery Room Air Capillary Refill : Less Than 3 Seconds Height, Weight, BMI Height: 5'3.00" Weight: 120lbs. 0.0oz. 54.268587wy; 22.00 BMI Method:Stated General Appearance: No Apparent Distress, WD/WN HEENT: PERRL/EOMI, TMs Normal, Pharynx Normal, Other (EXTENSIVE DENTAL DECAY DOWN TO GUMS--"METH MOUTH" IN APPEARANCE. NO EVIDENCE OF DENTAL ABSCESS. NO EVIDENCE OF TRAUMA TO FACE, MOUTH OR JAW, BUT LEFT CHIN IS TENDER. 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 NOT POST ICTAL) Skin: Normal Color, Warm/Dry Progress/Results/Core Measures Suspected Sepsis Recent Fever Within 48 Hours: No Infection Criteria Present: None New/Unexplained Altered Menta: No Sepsis Screen: No Definite Risk SIRS Temperature: Pulse: 86 Respiratory Rate: 19 Laboratory Tests 08/10/19 19:21: White Blood Count 11.6H Blood Pressure 132 /91 Mean: 105 Laboratory Tests 08/10/19 19:21: Creatinine 0.78, INR Comment 1.1, Platelet Count 316, Total Bilirubin 0.3 Results/Orders Lab Results My Orders Medications Given in ED Vital Signs/I&O Capillary Refill : Less Than 3 Seconds Blood Pressure Mean: 105 Progress Note : Progress Note UNEVENTFUL ER STAY ECG Initial ECG Impression Date: Aug 10, 2019 Initial ECG Impression Time: 19:36 Initial ECG Rate: 78 Initial ECG Rhythm: Normal Sinus Initial ECG Impression: 1st Degree AV Block Diagnostic Imaging Comments CXR--NO ACUTE PROCESS CT HEAD--NO ACUTE PROCESS PER RADIOLOGIST REPORTS AT 2005 CT MAXILLOFACIALS--NO ACUTE PROCESS, PER RADIOLOGIST REPORT AT 2014 Reviewed: Reviewed by Me Departure Communication (PCP) 2029--SPOKE WITH DR. DU.. HE WILL SEE PT IN FOLLOW UP. HE HAS VOICED HIS CONCERNS TO [facility] ABOUT THE THAT IS HOME WITH PT, AND WAS UNDER THE IMPRESSION THAT CHILD WOULD BE REMOVED FROM PT'S CUSTODY WHEN CHILD WAS BORN, BUT THAT DID NOT HAPPEN. HE WILL CONTACT THEM AGAIN, WELL. HE STATES THAT PT HAS A "WORKER" THAT CHECKS IN ON PT, AND A NEIGHBOR/ OLDER MALE, THAT CHECKS IN ON HER WELL. Impression Primary Impression: HEADACHE Additional Impression: History of seizures Disposition: 01 HOME, SELF-CARE Condition: Stable Departure-Patient Inst. Referrals: BRYAN DU MD (PCP/Family) Primary Care Physician Patient Instructions: Headache, Adult (DC), Seizures, Adult (DC) Add. Discharge Instructions: TAKE YOUR MEDICATION PRESCRIBED TYLENOL NEEDED FOR HEADACHE YOU ARE TO BE WITH ANOTHER ADULT AT ALL TIMES!!!! FOLLOW UP WITH DR. DU THIS WEEK FOR FURTHER CARE All discharge instructions reviewed with patient and/or family. Voiced understanding. LION SANCHEZ DO Aug 10, 2019 20:27
[2019-08-10] MEDS ORDERED: KETOROLAC 30 MG/ML VIAL IVP ONE (20:30)
[2019-08-10 21:03] VITALS: BP 134/76
== END 2019-08-10 21:03 | disposition home or self-care (01) ==
LOC: EDUNIT# 18:48 → ER 18:49
DX: R51 Headache (principal); I10 Essential (primary) hypertension; G40.909 Epilepsy, unspecified, not intractable, without status epilepticus; F17.210 Nicotine dependence, cigarettes, uncomplicated
CPT/HCPCS: 36415; 70450; 70486; 71046; 80053; 80306; 80320; 80329; 81000; 82150; 82550; 82553; 83735; 83874; 83880; 84443; 84484; 84703; 85025; 85610; 85730; 93005; 93041; 96361; 96374

== ENCOUNTER 2019-08-10 23:36 | Emergency (ER) | payer MEDICAID ==
--- NOTE | 2019-08-11 01:05 | NUR ---
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
== END 2019-08-11 01:05 | disposition left against medical advice (07) ==
LOC: EDUNIT# 23:36 → ER 23:39
DX: S00.501A Unspecified superficial injury of lip, initial encounter (principal); R56.9 Unspecified convulsions; X58.XXXA Exposure to other specified factors, initial encounter

== ENCOUNTER 2019-09-20 15:02 | Emergency (ER) | payer MEDICAID ==
[~2019-09-20] VITALS: Ht 160 cm; Wt 62.3 kg
[2019-09-20] MEDS ORDERED: LEVETIRACETAM INJECTION 1,000 MG in NS (IVPB) 100 ML IV STA (15:12)
[2019-09-20] MEDS ORDERED: NS IV 500 ML 500 ML IV ONE (15:12)
[2019-09-20] MEDS ORDERED: KETOROLAC 30 MG/ML VIAL IVP ONE (15:15)
--- NOTE | 2019-09-20 15:16 | ED Neurological Problem ---
General Stated Complaint: CANT REMEMBER ANYTHING, JAW SORE,HEADACHE Source: patient, other Exam Limitations: no limitations History of Present Illness Date Seen by Provider: Sep 20, 2019 Time Seen by Provider: 15:00 Initial Comments Patient presents to ER by private conveyance with her significant other and chief complaint that her friend came over to visit her this afternoon and she was acting very bizarrely saying she could not remember anything and very confused. She's had no fevers chills nausea vomiting. She has pain in the right jaw and right side of her face. She has a history of seizures and has been taking her Keppra 1000 mg twice daily as prescribed. She does not follow with a neurologist. She's known to Dr. Du. She had a seizure about a month ago. She's been on the Keppra for about 6 months now. Her baby is 4 months old and she's had no problems with the or periods. She denies any nausea. She's not taken anything for pain. She does not take any other medications or control. She does not have any other significant medical history or taking any other medications. She denies smoking, drinking, drugs, depression or suicidal ideation. She says her child has been on the bottle all day today. Her friend said that she spoke to earlier this afternoon and everything seemed okay and she told her she would be coming by this afternoon. When she arrived is when she discovered that the patient was acting oddly. The patient started her period today. Allergies and Home Medications Allergies Coded Allergies: No Known Drug Allergies (Unverified , 08/14/15) Home Medications Levetiracetam 500 Mg Tablet, 500 MG PO BID Prescribed by: JING MANCILLA on 11/12/16 0658 Prednisone 20 Mg Tab, 40 MG PO DAILY Prescribed by: TAMERA PUENTE on 08/01/19 1510 Patient Home Medication List Home Medication List Reviewed: Yes Review of Systems Review of Systems Constitutional: No chills, No diaphoresis Eyes: Denies Blindness, Denies Blurred Vision, Denies Drainage Ears, Nose, Mouth, Throat: denies ear pain, denies ear discharge Respiratory: No cough, No short of breath Cardiovascular: No chest pain, No edema Gastrointestinal: No abdominal pain, No constipation, No diarrhea, No nausea Genitourinary: No discharge, No dysuria : No Musculoskeletal: No back pain, No joint pain Skin: No pruritus, No rash All Other Systems Reviewed Negative Unless Noted: Yes Past Aokkfbk-Nfhynt-Krqgnj Hx Patient Social History Alcohol Use: Denies Use Recreational Drug Use: No Smoking Status: Former Smoker Type Used: Cigarettes 2nd Hand Smoke Exposure: No Recent Foreign Travel: No Contact w/Someone Who Travel: No Recent Hopitalizations: No Immunizations Up To Date Tetanus Booster (TDap): Unknown Seasonal Allergies Seasonal Allergies: No Past Medical History Surgeries: No Respiratory: No Cardiac: No Hypertension Neurological: Yes Seizure Disorder Reproductive Disorders: No Genitourinary: No Gastrointestinal: No Musculoskeletal: No Endocrine: No HEENT: No Cancer: No Psychosocial: No Integumentary: No Blood Disorders: No Adverse Reaction/Blood Tranf: No Family Medical History Patient reports no known family medical history. No Pertinent Family Hx Physical Exam Vital Signs Vital Signs - First Documented 09/20/19 15:10 Temp 36.9 Pulse 83 Resp 18 B/P (MAP) 134/101 (112) Pulse Ox 100 Capillary Refill : Height, Weight, BMI Height: 5'3.00" Weight: 120lbs. 0.0oz. [id number]; 22.00 BMI Method:Stated General Appearance: other (disheveled, anxious) HEENT: PERRL/EOMI, TMs normal, other (severe dental caries with blackened stumps; atraumatic head but tender maxillary sinus on the right and right lower mandible to palpation. No abrasion or ecchymoses. No evidence of abscess. No Storey sign and raccoon eyes and nontender occiput) Neck: non-tender, full range of motion, supple, normal inspection Respiratory: lungs clear, normal breath sounds, no respiratory distress, no accessory muscle use Cardiovascular: normal peripheral pulses, regular rate, rhythm Peripheral Pulses: 2+ Radial Pulses (R), 2+ Radial Pulses (L) Gastrointestinal: normal bowel sounds, non tender, soft Neurologic/Psychiatric: clinical programmer II-XII nml as tested, no motor/sensory deficits, alert, normal mood/affect, other (oriented to person place current time but not previous situation) Crainal Nerves: normal hearing, normal speech, PERRL Coordination/Gait: normal gait Skin: normal color, warm/dry Progress/Results/Core Measures Results/Orders Lab Results Laboratory Tests Test 09/20/19 15:10 09/20/19 16:15 Range/Units White Blood Count 8.1 4.3-11.0 10^3/uL Red Blood Count 4.39 4.35-5.85 10^6/uL Hemoglobin 10.3 L 11.5-16.0 G/DL Hematocrit 33 L 35-52 % Mean Corpuscular Volume 74 L 80-99 FL Mean Corpuscular Hemoglobin 23 L 25-34 PG Mean Corpuscular Hemoglobin Concent 32 32-36 G/DL Red Cell Distribution Width 16.7 H 10.0-14.5 % Platelet Count 311 130-400 10^3/uL Mean Platelet Volume 10.7 H 7.4-10.4 FL Neutrophils (%) (Auto) 77 H 42-75 % Lymphocytes (%) (Auto) 15 12-44 % Monocytes (%) (Auto) 7 0-12 % Eosinophils (%) (Auto) 1 0-10 % Basophils (%) (Auto) 0 0-10 % Neutrophils # (Auto) 6.3 1.8-7.8 X 10^3 Lymphocytes # (Auto) 1.2 1.0-4.0 X 10^3 Monocytes # (Auto) 0.6 0.0-1.0 X 10^3 Eosinophils # (Auto) 0.0 0.0-0.3 10^3/uL Basophils # (Auto) 0.0 0.0-0.1 10^3/uL Sodium Level 140 135-145 MMOL/L Potassium Level 3.8 3.6-5.0 MMOL/L Chloride Level 109 H 98-107 MMOL/L Carbon Dioxide Level 23 21-32 MMOL/L Anion Gap 8 5-14 MMOL/L Blood Urea Nitrogen 11 7-18 MG/DL Creatinine 0.80 0.60-1.30 MG/DL Estimat Glomerular Filtration Rate > 60 BUN/Creatinine Ratio 14 Glucose Level 90 70-105 MG/DL Calcium Level 9.0 8.5-10.1 MG/DL Corrected Calcium 8.5-10.1 MG/DL Total Bilirubin 0.4 0.1-1.0 MG/DL Aspartate Amino Transf (AST/SGOT) 13 5-34 U/L Alanine Aminotransferase (ALT/SGPT) 10 0-55 U/L Alkaline Phosphatase 54 40-136 U/L C-Reactive Protein High Sensitivity 0.04 0.00-0.50 MG/DL Total Protein 7.4 6.4-8.2 GM/DL Albumin 4.6 H 3.2-4.5 GM/DL Salicylates Level < 5.0 L 5.0-20.0 MG/DL Acetaminophen Level < 10 L 10-30 UG/ML Serum Alcohol < 10 <10 MG/DL Urine Color RED H Urine Clarity CLOUDY Urine pH 5.5 5-9 Urine Specific [place] 1.025 H 1.016-1.022 Urine Protein 2+ H NEGATIVE Urine Glucose (UA) NEGATIVE NEGATIVE Urine Ketones NEGATIVE NEGATIVE Urine Nitrite NEGATIVE NEGATIVE Urine Bilirubin NEGATIVE NEGATIVE Urine Urobilinogen 0.2 < = 1.0 MG/DL Urine Leukocyte Esterase 2+ H NEGATIVE Urine RBC (Auto) 3+ H NEGATIVE Urine RBC TNTC H /HPF Urine WBC 2-5 /HPF Urine Crystals NONE /LPF Urine Bacteria NEGATIVE /HPF Urine Casts NONE /LPF Urine Mucus NEGATIVE /LPF Urine Culture Indicated NO Urine Opiates Screen NEGATIVE NEGATIVE Urine Oxycodone Screen NEGATIVE NEGATIVE Urine Methadone Screen NEGATIVE NEGATIVE Urine Propoxyphene Screen NEGATIVE NEGATIVE Urine Barbiturates Screen NEGATIVE NEGATIVE Ur Tricyclic Antidepressants Screen NEGATIVE NEGATIVE Urine Phencyclidine Screen NEGATIVE NEGATIVE Urine Amphetamines Screen NEGATIVE NEGATIVE Urine Methamphetamines Screen NEGATIVE NEGATIVE Urine Benzodiazepines Screen NEGATIVE NEGATIVE Urine Cocaine Screen NEGATIVE NEGATIVE Urine Cannabinoids Screen NEGATIVE NEGATIVE My Orders Orders - MONICA WAGNER Ct Head/Face/Cervical Wo (09/20/19 15:12) Ed Iv/Invasive Line Start (09/20/19 15:12) Ns Iv 500 Ml (Sodium Chloride 0.9%) (09/20/19 15:12) Levetiracetam Injection (Keppra Injectio (09/20/19 15:12) Ketorolac Injection (Toradol Injection) (09/20/19 15:15) Cbc With Automated Diff (09/20/19 15:12) Comprehensive Metabolic Panel (09/20/19 15:12) Hs C Reactive Protein (09/20/19 15:12) Ua Culture If Indicated (09/20/19 15:12) Drug Screen Stat (Urine) (09/20/19 15:12) Urine Bedside (09/20/19 15:12) Alcohol (09/20/19 15:16) Acetaminophen (09/20/19 15:16) Salicylate (09/20/19 15:16) Medications Given in ED Current Medications Medications Dose Ordered Sig/Miguel Route Start Time Stop Time Status Last Admin Dose Admin Ketorolac Tromethamine 30 mg ONCE ONCE IVP 09/20/19 15:15 09/20/19 15:16 DC 09/20/19 15:32 30 MG Sodium Chloride 500 ml @ 0 mls/hr Q0M ONCE IV 09/20/19 15:12 09/20/19 15:15 DC 09/20/19 15:32 500 MLS/HR Vital Signs/I&O 09/20/19 15:10 Temp 36.9 Pulse 83 Resp 18 B/P (MAP) 134/101 (112) Pulse Ox 100 Progress Progress Note : Time: 15:23 Progress Note Toradol for pain. CT of the head neck and face. Labs to include Tylenol, aspirin, alcohol urinalysis and drug screen looking for any evidence of self- harm. Patient denies any suicidal ideation. Suspect she is postictal from her known seizure disorder. She says she is taking her medications appropriately so if we do not find something else wrong we can increase her Keppra 1500 mg twice a day. Plan to give her a gram of Keppra presently. Small fluid bolus. Previous records demonstrates urine amphetamines as well as anemia significant down to 6.9 and 11. Diagnostic Imaging Diagonstic Imaging: CT (without IV contrast) Plain Films/CT/US/NM/MRI: facial bones, c-spine, head Comments NAME: SHAYNE ONEIL [facility] REC#: [id number] PT STATUS: REG ER : 1995 PHYSICIAN: MONICA WAGNER MD ADMIT DATE: 09/20/19/ER Draft POSDate of Exam:09/20/19 CT HEAD/FACE/CERVICAL WO PROCEDURE: CT head, face, and cervical spine without contrast. TECHNIQUE: Multiple contiguous axial images were obtained through the head, neck, and facial bones without the use of intravenous contrast. Sagittal and coronal reformations through the cervical spine and facial bones were also performed. Auto Exposure Controls were utilized during the CT exam to meet ALARA standards for radiation dose reduction. INDICATION: History of seizures. Had seizure today, fall with frontal jaw pain. CORRELATION STUDY: 08/10/2019. FINDINGS: CT head: Ventricular apex is incompletely imaged. The visualized ventricles and sulci appearing unremarkable. Normal serrano-white differentiation. No abnormal areas of decreased attenuation to suggest edema. No midline shift or mass effect. No intracranial hemorrhage. The visualized bony calvarium appearing unremarkable. Visualized paranasal sinuses are relatively clear. Hypoplasia about the mastoid air cells. CT maxillofacial: There is no acute displaced maxillofacial fracture deformity. Nasal bones are intact. [id number] leftward nasal septal deviation. The paranasal sinuses demonstrate no significant air-fluid level. Small cysts or polyps in bilateral maxillary sinuses. The temporomandibular joint is maintained with mandible intact. There is demonstration of multiple lucencies through the teeth, most compatible with dental caries versus potential fractured teeth. CT cervical spine: Cervical spine alignment demonstrates some straightening and reversal but otherwise maintained and intact. Vertebral body heights are preserved. The posterior elements are intact and in normal alignment. Odontoid is intact. Lateral masses of C1-C2 are aligned. IMPRESSION: CT head: 1. Negative for acute traumatic intracranial abnormality. CT maxillofacial: 1. Negative for acute displaced maxillofacial fracture deformity. Multiple scattered dental caries are present. CT cervical spine: 1. Negative for acute fracture or traumatic subluxation. Dictated on workstation # [id number] Dict: 09/20/19 1705 Trans: 09/20/19 1717 [id number] [id number] Interpreted by: DYLON DOWELL DO Electronically signed by: Reviewed: Reviewed by Me Departure Impression Primary Impression: Seizure Additional Impression: Facial pain, acute Disposition: 01 HOME, SELF-CARE Condition: Stable Departure-Patient Inst. Decision time for Depature: 17:58 Referrals: BRYAN DU MD (PCP/Family) Primary Care Physician Patient Instructions: Seizures, Adult (DC) Add. Discharge Instructions: Start taking one and a half tablets of your Keppra until you follow up with your primary care doctor. Do not drive until released by your primary care doctor or 1 year out from your last seizure. Copy Copies To 1: BRYAN DU MD, TITUS J Sep 20, 2019 15:16 POS
[2019-09-20 15:22] LABS: BASOPHILS % (AUTO) 0 % (0-10); EOSINOPHILS % (AUTO) 1 % (0-10); HEMATOCRIT 33 % (35-52); HEMOGLOBIN 10.3 G/DL (11.5-16.0); LYMPHOCYTES # (AUTO) 1.2 X 10^3 (1.0-4.0); LYMPHOCYTES % (AUTO) 15 % (12-44); MEAN CORPUSCULAR HEMOGLOBIN 23 PG (25-34); MEAN CORPUSCULAR HGB CONC 32 G/DL (32-36); MEAN CORPUSCULAR VOLUME 74 FL (80-99); MEAN PLATELET VOLUME 10.7 FL (7.4-10.4); MONOCYTES # (AUTO) 0.6 X 10^3 (0.0-1.0); MONOCYTES % (AUTO) 7 % (0-12); NEUTROPHILS # (AUTO) 6.3 X 10^3 (1.8-7.8); NEUTROPHILS % (AUTO) 77 % (42-75); PLATELET COUNT 311 10^3/uL (130-400); RED CELL DISTRIBUTION WIDTH 16.7 % (10.0-14.5); WHITE BLOOD COUNT 8.1 10^3/uL (4.3-11.0)
[2019-09-20 15:41] LABS: ALANINE AMINOTRANSFERASE 10 U/L (0-55); ALBUMIN 4.6 GM/DL (3.2-4.5); ALKALINE PHOSPHATASE 54 U/L (40-136); BILIRUBIN,TOTAL 0.4 MG/DL (0.1-1.0); BUN/CREATININE RATIO 14; CARBON DIOXIDE 23 MMOL/L (21-32); CHLORIDE 109 MMOL/L (98-107); GFR ESTIMATED > 60; GLUCOSE 90 MG/DL (70-105); POTASSIUM 3.8 MMOL/L (3.6-5.0); SALICYLATE < 5.0 MG/DL (5.0-20.0); SODIUM 140 MMOL/L (135-145); TOTAL PROTEIN 7.4 GM/DL (6.4-8.2)
[2019-09-20 15:45] LABS: ACETAMINOPHEN < 10 UG/ML (10-30)
[2019-09-20 16:26] LABS: BILIRUBIN,URINE NEGATIVE (NEGATIVE); CLARITY,URINE CLOUDY; COLOR,URINE RED; GLUCOSE, URINE (UA) NEGATIVE (NEGATIVE); KETONES,URINE NEGATIVE (NEGATIVE); LEUKOCYTE ESTERASE ,URINE 2+ (NEGATIVE); NITRITE,URINE NEGATIVE (NEGATIVE); PH,URINE 5.5 (5-9); PROTEIN,URINE 2+ (NEGATIVE)
[2019-09-20 16:39] LABS: BACTERIA,URINE NEGATIVE /HPF; RBC,URINE TNTC /HPF
[2019-09-20 16:43] LABS: AMPHETAMINE SCREEN, URINE NEGATIVE (NEGATIVE); BARBITURATE SCREEN URINE NEGATIVE (NEGATIVE); BENZODIAZEPINES SCREEN URINE NEGATIVE (NEGATIVE); CANNABINOID SCREEN, URINE NEGATIVE (NEGATIVE); COCAINE SCREEN URINE NEGATIVE (NEGATIVE); METHADONE STAT NEGATIVE (NEGATIVE); METHAMPHETAMINE SCREEN URINE S NEGATIVE (NEGATIVE); OPIATE SCREEN URINE NEGATIVE (NEGATIVE); OXYCODONE STAT NEGATIVE (NEGATIVE); PROPOXYPHENE STAT NEGATIVE (NEGATIVE); TRICYCLIC ANTIDEPRESSANTS SCRE NEGATIVE (NEGATIVE)
--- NOTE | 2019-09-20 17:18 | Diagnostic Imaging Report ---
PROCEDURE: CT head, face, and cervical spine without contrast. TECHNIQUE: Multiple contiguous axial images were obtained through the head, neck, and facial bones without the use of intravenous contrast. Sagittal and coronal reformations through the cervical spine and facial bones were also performed. Auto Exposure Controls were utilized during the CT exam to meet ALARA standards for radiation dose reduction. INDICATION: History of seizures. Had seizure today, fall with frontal jaw pain. CORRELATION STUDY: 08/10/2019. FINDINGS: CT head: Ventricular apex is incompletely imaged. The visualized ventricles and sulci appearing unremarkable. Normal serrano-white differentiation. No abnormal areas of decreased attenuation to suggest edema. No midline shift or mass effect. No intracranial hemorrhage. The visualized bony calvarium appearing unremarkable. Visualized paranasal sinuses are relatively clear. Hypoplasia about the mastoid air cells. CT maxillofacial: There is no acute displaced maxillofacial fracture deformity. Nasal bones are intact. Dvye-[id number] leftward nasal septal deviation. The paranasal sinuses demonstrate no significant air-fluid level. Small cysts or polyps in bilateral maxillary sinuses. The temporomandibular joint is maintained with mandible intact. There is demonstration of multiple lucencies through the teeth, most compatible with dental caries versus potential fractured teeth. CT cervical spine: Cervical spine alignment demonstrates some straightening and reversal but otherwise maintained and intact. Vertebral body heights are preserved. The posterior elements are intact and in normal alignment. Odontoid is intact. Lateral masses of C1-C2 are aligned. IMPRESSION: CT head: 1. Negative for acute traumatic intracranial abnormality. CT maxillofacial: 1. Negative for acute displaced maxillofacial fracture deformity. Multiple scattered dental caries are present. CT cervical spine: 1. Negative for acute fracture or traumatic subluxation. Dictated by: Dictated on workstation # [id number]
[2019-09-20 18:10] VITALS: BP 124/88
== END 2019-09-20 18:10 | disposition home or self-care (01) ==
LOC: EDUNIT# 15:02 → ER 15:04
DX: G40.909 Epilepsy, unspecified, not intractable, without status epilepticus (principal); R51 Headache; I10 Essential (primary) hypertension; Z87.891 Personal history of nicotine dependence
CPT/HCPCS: 36415; 70450; 70486; 72125; 80053; 80306; 80320; 80329; 81000; 84703; 85025; 86141

== ENCOUNTER 2019-10-03 20:36 | Emergency (ER) | payer MEDICAID ==
[~2019-10-03] VITALS: Ht 160 cm; Wt 62.3 kg
[2019-10-03 20:56] LABS: BASOPHILS % (AUTO) 0 % (0-10); EOSINOPHILS # (AUTO) 0.1 10^3/uL (0.0-0.3); EOSINOPHILS % (AUTO) 1 % (0-10); HEMATOCRIT 34 % (35-52); HEMOGLOBIN 10.6 G/DL (11.5-16.0); LYMPHOCYTES # (AUTO) 2.3 X 10^3 (1.0-4.0); LYMPHOCYTES % (AUTO) 23 % (12-44); MEAN CORPUSCULAR HGB CONC 32 G/DL (32-36); MEAN CORPUSCULAR VOLUME 75 FL (80-99); MEAN PLATELET VOLUME 10.7 FL (7.4-10.4); MONOCYTES # (AUTO) 0.8 X 10^3 (0.0-1.0); MONOCYTES % (AUTO) 7 % (0-12); NEUTROPHILS % (AUTO) 69 % (42-75); PLATELET COUNT 377 10^3/uL (130-400); RED CELL DISTRIBUTION WIDTH 15.9 % (10.0-14.5); WHITE BLOOD COUNT 10.2 10^3/uL (4.3-11.0)
[2019-10-03 20:59] LABS: MEAN CORPUSCULAR HEMOGLOBIN 23 PG (25-34)
[2019-10-03 21:15] LABS: ALANINE AMINOTRANSFERASE 10 U/L (0-55); ALBUMIN 4.8 GM/DL (3.2-4.5); ALKALINE PHOSPHATASE 56 U/L (40-136); BILIRUBIN,TOTAL 0.4 MG/DL (0.1-1.0); BUN/CREATININE RATIO 13; CALCIUM 9.5 MG/DL (8.5-10.1); CARBON DIOXIDE 22 MMOL/L (21-32); CHLORIDE 107 MMOL/L (98-107); CREATININE SERUM 0.83 MG/DL (0.60-1.30); GFR ESTIMATED > 60; GLUCOSE 86 MG/DL (70-105); POTASSIUM 3.8 MMOL/L (3.6-5.0); SODIUM 140 MMOL/L (135-145); TOTAL PROTEIN 7.8 GM/DL (6.4-8.2)
--- NOTE | 2019-10-03 21:49 | Diagnostic Imaging Report ---
PROCEDURE: CT head, face, and cervical spine without contrast. TECHNIQUE: Multiple contiguous axial images were obtained through the head, neck, and facial bones without the use of intravenous contrast. Sagittal and coronal reformations through the cervical spine and facial bones were also performed. Auto Exposure Controls were utilized during the CT exam to meet ALARA standards for radiation dose reduction. DATE: October 03, 2019. COMPARISON: September 20, 2019. INDICATION: 24-year-old female, seizure, fall. FINDINGS: The ventricles and cerebral spinal fluid spaces are of normal size and configuration for the patient's age. There is no mass effect or midline shift. There is no acute intracranial hemorrhage. There is no abnormal extra-axial fluid collection. The visualized portions of the paranasal sinuses, mastoid air cells and middle ears are well aerated. The temporomandibular joints are normally aligned. The mandible is intact. There are periapical lucencies adjacent to maxillary teeth just to the right and left of midline. There is no aggressive bone destruction. There is no periosteal reaction. There is no displaced nasal bone fracture. The bony nasal septum is deviated to the left of midline. There is a polypoid lesion in the left maxillary sinus likely relating to a mucous retention cyst. There is no air fluid level in the paranasal sinuses. There is no identified acute maxillofacial bone fracture. There is a slight reversal of the normal cervical lordosis. There is no facet joint subluxation or dislocation. There is no asymmetric widening of the cervical disc spaces. There is no prominent prevertebral soft tissue swelling. There is no identified acute fracture of the cervical spine. A CT is limited for assessment of disc pathology as well as additional non-bony causes of foraminal and spinal stenosis. The visualized portions of lung apices are clear. IMPRESSION: 1. No identified acute intracranial abnormality. 2. No identified acute maxillofacial bone fracture. 3. Periapical lucencies adjacent to maxillary teeth to the right and left of midline without aggressive bone destruction or periodic reaction. 4. No acute abnormality of the cervical spine. Dictated by: Dictated on workstation # [id number]
--- NOTE | 2019-10-03 21:53 | ED Neurological Problem ---
General Chief Complaint: Neurological Problems Stated Complaint: SEIZURE/FALL Nursing Triage Note: pt presents to the ed from [facility]. bystanders report to ems staff that the pt was witnessed to have collapsed and witnessed having seizure like activity for a reported ten minuted. pt denies neck pain or tenderness on provider exam, verbalizes left jaw pain Nursing Sepsis Screen: No Definite Risk Source: patient, EMS Exam Limitations: no limitations History of Present Illness Date Seen by Provider: Oct 03, 2019 Time Seen by Provider: 20:38 Initial Comments This 24-year-old young lady presents to the emergency room via [facility] with complaint of seizure. She has known seizure disorder. EMS reports she was standing up at [facility] when she fell forward and had a prolonged seizure. They state by standers reported seizure lasted up to 10 minutes. Patient complains of left jaw pain. She has some mild tenderness on the cervical spine. C-collar was placed by EMS on scene. Patient states she has been experiencing no acute illnesses recently and has been compliant with her medications. She was postictal for EMS but is alert and oriented now. Dr. Du is her primary care provider. Patient took her Keppra just prior to going to [facility]. Medication filling record shows that patient was recently prescribed amoxicillin and chlorhexidine mouthwash. She does not recall being prescribed this medication or taking any of it. Allergies and Home Medications Allergies Coded Allergies: No Known Drug Allergies (Unverified , 08/14/15) Home Medications Amoxicillin 500 Mg Capsule, 1,000 MG PO BID Prescribed by: JING MANCILLA on 10/03/197 Levetiracetam 500 Mg Tablet, 500 MG PO BID Prescribed by: JING MANCILLA on 11/12/16 0658 Prednisone 20 Mg Tab, 40 MG PO DAILY Prescribed by: TAMERA PUENTE on 08/01/19 1510 Patient Home Medication List Home Medication List Reviewed: Yes Review of Systems Review of Systems Constitutional: no symptoms reported Eyes: No Symptoms Reported Ears, Nose, Mouth, Throat: no symptoms reported Respiratory: no symptoms reported Cardiovascular: no symptoms reported Gastrointestinal: no symptoms reported Genitourinary: no symptoms reported : No Musculoskeletal: see HPI Skin: no symptoms reported Psychiatric/Neurological: See HPI Endocrine: No Symptoms Reported Hematologic/Lymphatic: No Symptoms Reported Past Uxsiigj-Guwrkh-Injumt Hx Past Med/Social Hx: Reviewed and Corrections made Patient Social History Alcohol Use: Denies Use Recreational Drug Use: No Drug of Choice: DENIES BUT UDS + FOR AMPHETAMINES Smoking Status: Never a Smoker Type Used: Cigarettes 2nd Hand Smoke Exposure: No Recent Foreign Travel: No Contact w/Someone Who Travel: No Recent Infectious Disease Expo: No Recent Hopitalizations: No Physical Abuse: No Sexual Abuse: No Mistreated: No Fear: No Immunizations Up To Date Tetanus Booster (TDap): Unknown PED Vaccines UTD: Yes Seasonal Allergies Seasonal Allergies: No Past Medical History Surgeries: Yes ( 05/03/19) Section Respiratory: No Cardiac: Yes Hypertension Neurological: Yes Seizure Disorder : No Last Menstrual Period: Sep 24, 2019 Reproductive Disorders: No Genitourinary: No Gastrointestinal: No Musculoskeletal: No Endocrine: No HEENT: No Cancer: No Psychosocial: No Integumentary: No Blood Disorders: No Adverse Reaction/Blood Tranf: No Family Medical History Patient reports no known family medical history. No Pertinent Family Hx Physical Exam Vital Signs Vital Signs - First Documented 10/03/19 20:36 Pulse 90 Resp 18 B/P (MAP) 150/106 (121) Pulse Ox 99 O2 Delivery Room Air Capillary Refill : Less Than 3 Seconds Height, Weight, BMI Height: 5'3.00" Weight: 120lbs. 0.0oz. 54.967130sy; 24.00 BMI Method:Stated General Appearance: WD/WN, no apparent distress HEENT: PERRL/EOMI, other (severe dental decay. Tenderness along the left mandible) Neck: normal inspection, tender midline (posteriorly), other (in c-collar) Respiratory: lungs clear, normal breath sounds, no respiratory distress, no accessory muscle use Cardiovascular: regular rate, rhythm, no edema, no murmur Gastrointestinal: normal bowel sounds, non tender, soft Extremities: non-tender, normal inspection, no pedal edema Neurologic/Psychiatric: expressive art therapist II-XII nml as tested, no motor/sensory deficits, alert, normal mood/affect, oriented x 3 Crainal Nerves: normal hearing, normal speech, PERRL Motor/Sensory: no motor deficit, no sensory deficit Skin: normal color, warm/dry Progress/Results/Core Measures Results/Orders Lab Results Laboratory Tests Test 10/03/19 20:47 10/03/19 21:53 10/03/19 21:56 Range/Units White Blood Count 10.2 4.3-11.0 10^3/uL Red Blood Count 4.52 4.35-5.85 10^6/uL Hemoglobin 10.6 L 11.5-16.0 G/DL Hematocrit 34 L 35-52 % Mean Corpuscular Volume 75 L 80-99 FL Mean Corpuscular Hemoglobin 23 L 25-34 PG Mean Corpuscular Hemoglobin Concent 32 32-36 G/DL Red Cell Distribution Width 15.9 H 10.0-14.5 % Platelet Count 377 130-400 10^3/uL Mean Platelet Volume 10.7 H 7.4-10.4 FL Neutrophils (%) (Auto) 69 42-75 % Lymphocytes (%) (Auto) 23 12-44 % Monocytes (%) (Auto) 7 0-12 % Eosinophils (%) (Auto) 1 0-10 % Basophils (%) (Auto) 0 0-10 % Neutrophils # (Auto) 7.0 1.8-7.8 X 10^3 Lymphocytes # (Auto) 2.3 1.0-4.0 X 10^3 Monocytes # (Auto) 0.8 0.0-1.0 X 10^3 Eosinophils # (Auto) 0.1 0.0-0.3 10^3/uL Basophils # (Auto) 0.0 0.0-0.1 10^3/uL Sodium Level 140 135-145 MMOL/L Potassium Level 3.8 3.6-5.0 MMOL/L Chloride Level 107 98-107 MMOL/L Carbon Dioxide Level 22 21-32 MMOL/L Anion Gap 11 5-14 MMOL/L Blood Urea Nitrogen 11 7-18 MG/DL Creatinine 0.83 0.60-1.30 MG/DL Estimat Glomerular Filtration Rate > 60 BUN/Creatinine Ratio 13 Glucose Level 86 70-105 MG/DL Calcium Level 9.5 8.5-10.1 MG/DL Corrected Calcium 8.5-10.1 MG/DL Magnesium Level 2.0 1.6-2.4 MG/DL Total Bilirubin 0.4 0.1-1.0 MG/DL Aspartate Amino Transf (AST/SGOT) 13 5-34 U/L Alanine Aminotransferase (ALT/SGPT) 10 0-55 U/L Alkaline Phosphatase 56 40-136 U/L Total Protein 7.8 6.4-8.2 GM/DL Albumin 4.8 H 3.2-4.5 GM/DL Serum Test, Qualitative NEGATIVE NEGATIVE Urine Opiates Screen NEGATIVE NEGATIVE Urine Oxycodone Screen NEGATIVE NEGATIVE Urine Methadone Screen NEGATIVE NEGATIVE Urine Propoxyphene Screen NEGATIVE NEGATIVE Urine Barbiturates Screen NEGATIVE NEGATIVE Ur Tricyclic Antidepressants Screen NEGATIVE NEGATIVE Urine Phencyclidine Screen NEGATIVE NEGATIVE Urine Amphetamines Screen NEGATIVE NEGATIVE Urine Methamphetamines Screen NEGATIVE NEGATIVE Urine Benzodiazepines Screen NEGATIVE NEGATIVE Urine Cocaine Screen NEGATIVE NEGATIVE Urine Cannabinoids Screen NEGATIVE NEGATIVE Urine Color YELLOW Urine Clarity CLEAR Urine pH 5.5 5-9 Urine Specific Noel >=1.030 1.016-1.022 Urine Protein NEGATIVE NEGATIVE Urine Glucose (UA) NEGATIVE NEGATIVE Urine Ketones NEGATIVE NEGATIVE Urine Nitrite NEGATIVE NEGATIVE Urine Bilirubin NEGATIVE NEGATIVE Urine Urobilinogen 0.2 < = 1.0 MG/DL Urine Leukocyte Esterase NEGATIVE NEGATIVE Urine RBC (Auto) NEGATIVE NEGATIVE Urine RBC RARE /HPF Urine WBC 0-2 /HPF Urine Squamous Epithelial Cells 10-25 H /HPF Urine Crystals NONE /LPF Urine Bacteria LARGE H /HPF Urine Casts NONE /LPF Urine Mucus NEGATIVE /LPF Urine Culture Indicated YES My Orders Orders - JING GARCES MD Cbc With Automated Diff (10/03/19 20:43) Comprehensive Metabolic Panel (10/03/19 20:43) Hcg,Qualitative Serum (10/03/19 20:43) Magnesium (10/03/19 20:43) Ua Culture If Indicated (10/03/19 20:43) Ct Head/Face/Cervical Wo (10/03/19 20:43) Drug Screen Stat (Urine) (10/03/19 21:53) Amoxicillin Capsule (Polymox Capsule) (10/03/19 22:15) Urine Culture (10/03/19 21:56) Vital Signs/I&O 10/03/19 20:36 Pulse 90 Resp 18 B/P (MAP) 150/106 (121) Pulse Ox 99 O2 Delivery Room Air Blood Pressure Mean: 121 POS Progress Progress Note : Progress Note Labs unremarkable. CT suggestive of periodontal disease but no acute injuries. C-collar was cleared. Patient is being treated for periodontal disease as this may be decreasing her seizure threshold. Diagnostic Imaging Diagonstic Imaging: CT Plain Films/CT/US/NM/MRI: facial bones, c-spine, head Comments CT viewed by me and report reviewed. See report below: NAME: SHAYNE ONEIL [facility] REC#: [id number] PT STATUS: REG ER : 1995 PHYSICIAN: JING GARCES MD ADMIT DATE: 10/03/19/ER Draft POSDate of Exam:10/03/19 CT HEAD/FACE/CERVICAL WO PROCEDURE: CT head, face, and cervical spine without contrast. TECHNIQUE: Multiple contiguous axial images were obtained through the head, neck, and facial bones without the use of intravenous contrast. Sagittal and coronal reformations through the cervical spine and facial bones were also performed. Auto Exposure Controls were utilized during the CT exam to meet ALARA standards for radiation dose reduction. DATE: October 03, 2019. COMPARISON: September 20, 2019. INDICATION: 24-year-old female, seizure, fall. FINDINGS: The ventricles and cerebral spinal fluid spaces are of normal size and configuration for the patient's age. There is no mass effect or midline shift. There is no acute intracranial hemorrhage. There is no abnormal extra-axial fluid collection. The visualized portions of the paranasal sinuses, mastoid air cells and middle ears are well aerated. The temporomandibular joints are normally aligned. The mandible is intact. There are periapical lucencies adjacent to maxillary teeth just to the right and left of midline. There is no aggressive bone destruction. There is no periosteal reaction. There is no displaced nasal bone fracture. The bony nasal septum is deviated to the left of midline. There is a polypoid lesion in the left maxillary sinus likely relating to a mucous retention cyst. There is no air fluid level in the paranasal sinuses. There is no identified acute maxillofacial bone fracture. There is a slight reversal of the normal cervical lordosis. There is no facet joint subluxation or dislocation. There is no asymmetric widening of the cervical disc spaces. There is no prominent prevertebral soft tissue swelling. There is no identified acute fracture of the cervical spine. A CT is limited for assessment of disc pathology as well as additional non-bony causes of foraminal and spinal stenosis. The visualized portions of lung apices are clear. IMPRESSION: 1. No identified acute intracranial abnormality. 2. No identified acute maxillofacial bone fracture. 3. Periapical lucencies adjacent to maxillary teeth to the right and left of midline without aggressive bone destruction or periodic reaction. 4. No acute abnormality of the cervical spine. Dictated on workstation # [id number] Dict: 10/03/192129 Trans: 10/03/192147 [facility] [id number] Interpreted by: CATY CLEANING MD Departure Impression Primary Impression: Seizure Additional Impressions: Facial contusion Qualified Codes: S00.83XA - Contusion of other part of head, initial encounter Periodontal disease Disposition: HOME, SELF-CARE Condition: Improved Departure-Patient Inst. Decision time for Depature: 22:04 Referrals: BRYAN DU MD (PCP/Family) Primary Care Physician Patient Instructions: Periodontal Disease, Seizures, Adult (DC) Add. Discharge Instructions: Complete your antibiotics as prescribed and follow-up with a dentist as soon as possible. Continue your Keppra as previously prescribed and follow-up with your primary care provider soon as possible. Loman your teeth gently twice daily with a soft bristle brush and rinse with an antiseptic mouthwash such as the chlorhexidine mouthwash you were previously prescribed. Return to care if you have any further problems or concerns. All discharge instructions reviewed with patient and/or family. Voiced understanding. Scripts Amoxicillin (Amoxicillin) 500 Mg Capsule 1000 MG PO BID, #40 CAP 0 Refills Prov: JING GARCES MD 10/03/19 JING GARCES MD Oct 03, 2019 21:53 POS
[2019-10-03 22:04] LABS: BILIRUBIN,URINE NEGATIVE (NEGATIVE); CLARITY,URINE CLEAR; COLOR,URINE YELLOW; GLUCOSE, URINE (UA) NEGATIVE (NEGATIVE); KETONES,URINE NEGATIVE (NEGATIVE); LEUKOCYTE ESTERASE ,URINE NEGATIVE (NEGATIVE); NITRITE,URINE NEGATIVE (NEGATIVE); PH,URINE 5.5 (5-9); PROTEIN,URINE NEGATIVE (NEGATIVE)
[2019-10-03] MEDS ORDERED: AMOX500C2 PO (22:07)
[2019-10-03] MEDS ORDERED: AMOXICILLIN 500 MG (POLYMOX) CAP PO ONE (22:15)
[2019-10-03 22:18] LABS: BACTERIA,URINE LARGE /HPF; RBC,URINE RARE /HPF; WBC,URINE 0-2 /HPF
[2019-10-03 22:23] LABS: AMPHETAMINE SCREEN, URINE NEGATIVE (NEGATIVE); BARBITURATE SCREEN URINE NEGATIVE (NEGATIVE); BENZODIAZEPINES SCREEN URINE NEGATIVE (NEGATIVE); CANNABINOID SCREEN, URINE NEGATIVE (NEGATIVE); COCAINE SCREEN URINE NEGATIVE (NEGATIVE); METHAMPHETAMINE SCREEN URINE S NEGATIVE (NEGATIVE); OPIATE SCREEN URINE NEGATIVE (NEGATIVE)
[2019-10-03 22:24] LABS: METHADONE STAT NEGATIVE (NEGATIVE); OXYCODONE STAT NEGATIVE (NEGATIVE); PROPOXYPHENE STAT NEGATIVE (NEGATIVE); TRICYCLIC ANTIDEPRESSANTS SCRE NEGATIVE (NEGATIVE)
[2019-10-03 22:48] VITALS: BP 142/92
--- OUTSIDE RECORDS SUMMARY | 2019-10-28 12:16 | XMS REPORT | Continuity of Care Document ---
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 erythrocyte mean corpuscular h emoglobin (mass per erythrocyte) 31 pg 25-34 Automated erythrocyte mean corpuscular h emoglobin concentration measurement (mass/volume) 35 g/dL 32-36 Automated erythrocyte distribution width ratio 13. 3 % 10.0- 14.5 Automated blood platelet count (count/volume) 245 10*3/uL [...] 10*3 1.0-4.0 Blood monocytes automated count (number/volume) 0. 9 10*3 0.0-1.0 Automated eosinophil count 0.1 10*3/uL 0 .0-0.3 Automated blood basophil count (count/volume) 0.0 10*3/uL 0.0-0.1 Comprehensive metabolic panel - 10/23/17 20:20 Serum or plasma sodium measurement (moles/volume) 138 mmol/L 135-145 Serum or plasma potassium measurement (moles/volume) 3.6 mmol/L 3.6-5.0 Serum or plasma chloride measurement (moles/volume) 107 mmol/L 98-107 Carbon dioxide 22 mmol/L 21-32 Serum or plasma anion gap determination (moles/volume) 9 mmol/L 5-14 Serum or plasma urea nitrogen measurement (mass/volume ) 6 mg/dL 7-18 Serum or plasma creatinine measurement (mass/volume) 0.55 mg/dL 0.60-1.30 Serum or plasma urea nitrogen/creatinine mass ratio 11 NRG Serum or plasma creatinine measurement w ith calculation of estimated glomerular filtration rate > NRG Serum or plasma glucose measurement (mass/volume) 86 mg/dL 70-105 Serum or plasma calcium measurement (mass/volume) 8.5 mg/dL 8.5-10.1 Serum or plasma total bilirubin measurement (mass/volu me) 0.3 mg/dL 0.1-1.0 Serum or plasma alkaline phosphatase tegan surement (enzymatic activity/volume) 37 U/L 40-136 Serum or plasma aspartate aminotransfera se measurement (enzymatic activity/volume) 11 U/L 5-34 Serum or plasma alanine aminotransferase measurement (enzymatic activity/volume) 7 U/L 0-55 Serum or plasma protein measurement (mass/volume) 6.7 g/dL 6.4-8.2 Serum or plasma albumin measurement (mass/volume) 3.6 g/dL 3.2-4.5 Magnesium - 10/23/17 20:20 Magnesium 1.7 mg/dL 1.8-2.4 Serum or plasma ethanol measurement (mas s/volume) - 10/23/17 20:20 Serum or plasma ethanol measurement (mass/volume) < mg/dL <10 Complete urinalysis with reflex to cultu re - 10/23/17 20:25 Urine color determination YELLOW NRG Urine clarity determination CLEAR NR G Urine pH measurement by test strip 8 5-9 Specific gravity of urine by test strip 1.010 1.016-1.022 Urine protein assay by test strip, semi-quantitative NEGATIVE NEGATIVE Urine glucose detection by automated test strip NE GATIVE NEGATIVE Erythrocytes detection in urine sediment by light micr oscopy NEGATIVE NEGATIVE Urine ketones detection by automated test strip NE GATIVE NEGATIVE Urine nitrite detection by test strip NEGATIVE NEGATIVE Urine total bilirubin detection by test strip NEGA TIVE NEGATIVE Urine urobilinogen measurement by automated test strip (mass/volume) NORMAL NORMAL Urine leukocyte esterase detection by dipstick 1+ NEGATIVE Automated urine sediment erythrocyte cou nt by microscopy (number/high power field) NONE NRG Automated urine sediment leukocyte count by microscopy (number/high power field) [HPF] NRG Bacteria detection in urine sediment by light microsco py FEW NRG Squamous epithelial cells detection in u rine sediment by light microscopy 2-5 NRG Crystals detection in urine sediment by light microsco py NONE NRG Casts detection in urine sediment by light microscopy NONE NRG Mucus detection in urine sediment by light microscopy NEGATIVE NRG Complete urinalysis with reflex to culture NO NRG Urine drug screening test - 10/23/17 20: 25 Urine phencyclidine detection by screening method NEGATIVE NEGATIVE Urine benzodiazepines detection by screening method NEGATIVE NEGATIVE Urine cocaine detection NEGATIVE NEGATI VE Urine amphetamines detection by screening method N EGATIVE NEGATIVE Urine methamphetamine detection by screening method NEGATIVE NEGATIVE Urine cannabinoids detection by screening method N EGATIVE NEGATIVE Urine opiates detection by screening method NEGATI VE NEGATIVE Urine barbiturates detection NEGATIVE N EGATIVE Screening urine tricyclic antidepressants detection NEGATIVE NEGATIVE Urine methadone detection by screening method NEGA TIVE NEGATIVE Urine oxycodone detection NEGATIVE NEGA TIVE Urine propoxyphene detection NEGATIVE N EGATIVE Complete blood count (CBC) with automate d white blood cell (WBC) differential - 04/14/18 06:20 Blood leukocytes automated count (number/volume) 10.6 10*3/uL 4.3-11.0 Blood erythrocytes automated count (number/volume) 4.13 10*6/uL 4.35-5.85 Venous blood hemoglobin measurement (mass/volume) 10.0 g/dL 11.5-16.0 Blood hematocrit (volume fraction) 31 % 35-52 Automated erythrocyte mean corpuscular volume 75 [ foz_us] 80-99 Automated erythrocyte mean corpuscular h emoglobin (mass per erythrocyte) 24 pg 25-34 Automated erythrocyte mean corpuscular h emoglobin concentration measurement (mass/volume) 32 g/dL 32-36 Automated erythrocyte distribution width ratio 15. 1 % 10.0- 14.5 Automated blood platelet count (count/volume) 258 10*3/uL [...] 10*3 1.0-4.0 Blood monocytes automated count (number/volume) 0. 8 10*3 0.0-1.0 Automated eosinophil count 0.1 10*3/uL 0 .0-0.3 Automated blood basophil count (count/volume) 0.0 10*3/uL 0.0-0.1 Blood type T Indirect antibody screen pa anamaria - 04/14/18 06:20 ABO+Rh group OP NRG Transfusion band number [id number] NRG Blood group antibody screen NEGATIVE NR G Urine drug screening test - 04/14/18 08: 45 Urine phencyclidine detection by screening method NEGATIVE NEGATIVE Urine benzodiazepines detection by screening method NEGATIVE NEGATIVE Urine cocaine detection NEGATIVE NEGATI VE Urine amphetamines detection by screening method N EGATIVE NEGATIVE Urine methamphetamine detection by screening method NEGATIVE NEGATIVE Urine cannabinoids detection by screening method N EGATIVE NEGATIVE Urine opiates detection by screening method NEGATI VE NEGATIVE Urine barbiturates detection NEGATIVE N EGATIVE Screening urine tricyclic antidepressants detection NEGATIVE NEGATIVE Urine methadone detection by screening method NEGA TIVE NEGATIVE Urine oxycodone detection NEGATIVE NEGA TIVE Urine propoxyphene detection NEGATIVE N EGATIVE Complete blood count (CBC) with automate d white blood cell (WBC) differential - 04/15/18 05:48 Blood leukocytes automated count (number/volume) 11.6 10*3/uL 4.3-11.0 Blood erythrocytes automated count (number/volume) 3.74 10*6/uL 4.35-5.85 Venous blood hemoglobin measurement (mass/volume) 8.9 g/dL 11.5-16.0 Blood hematocrit (volume fraction) 29 % 35-52 Automated erythrocyte mean corpuscular volume 76 [ foz_us] 80-99 Automated erythrocyte mean corpuscular h emoglobin (mass per erythrocyte) 24 pg 25-34 Automated erythrocyte mean corpuscular h emoglobin concentration measurement (mass/volume) 31 g/dL 32-36 Automated erythrocyte distribution width ratio 15. 3 % 10.0- 14.5 Automated blood platelet count (count/volume) 240 10*3/uL [...] 10*3 1.0-4.0 Blood monocytes automated count (number/volume) 1. 0 10*3 0.0-1.0 Automated eosinophil count 0.1 10*3/uL 0 .0-0.3 Automated blood basophil count (count/volume) 0.0 10*3/uL 0.0-0.1 Complete blood count (CBC) with automate d white blood cell (WBC) differential - 10/21/18 18:07 Blood leukocytes automated count (number/volume) 11.7 10*3/uL 4.3-11.0 Blood erythrocytes automated count (number/volume) 4.28 10*6/uL 4.35-5.85 Venous blood hemoglobin measurement (mass/volume) 11.8 g/dL 11.5-16.0 Blood hematocrit (volume fraction) 36 % 35-52 Automated erythrocyte mean corpuscular volume 83 [ foz_us] 80-99 Automated erythrocyte mean corpuscular h emoglobin (mass per erythrocyte) 28 pg 25-34 Automated erythrocyte mean corpuscular h emoglobin concentration measurement (mass/volume) 33 g/dL 32-36 Automated erythrocyte distribution width ratio 13. 7 % 10.0- 14.5 Automated blood platelet count (count/volume) 326 10*3/uL [...] 10*3 1.0-4.0 Blood monocytes automated count (number/volume) 1. 2 10*3 0.0-1.0 Automated eosinophil count 0.1 10*3/uL 0 .0-0.3 Automated blood basophil count (count/volume) 0.0 10*3/uL 0.0-0.1 Serum or plasma choriogonadotropin (preg jessica test) detection - 10/21/18 18:07 Serum or plasma choriogonadotropin ( test) de tection POSITIVE NEGATIVE Comprehensive metabolic panel - 10/21/18 18:07 Serum or plasma sodium measurement (moles/volume) 138 mmol/L 135-145 Serum or plasma potassium measurement (moles/volume) 3.0 mmol/L 3.6-5.0 Serum or plasma chloride measurement (moles/volume) 107 mmol/L 98-107 Carbon dioxide 22 mmol/L 21-32 Serum or plasma anion gap determination (moles/volume) 9 mmol/L 5-14 Serum or plasma urea nitrogen measurement (mass/volume ) 8 mg/dL 7-18 Serum or plasma creatinine measurement (mass/volume) 0.65 mg/dL 0.60-1.30 Serum or plasma urea nitrogen/creatinine mass ratio 12 NRG Serum or plasma creatinine measurement w ith calculation of estimated glomerular filtration rate > NRG Serum or plasma glucose measurement (mass/volume) 77 mg/dL 70-105 Serum or plasma calcium measurement (mass/volume) 9.4 mg/dL 8.5-10.1 Serum or plasma total bilirubin measurement (mass/volu me) 0.3 mg/dL 0.1-1.0 Serum or plasma alkaline phosphatase tegan surement (enzymatic activity/volume) 55 U/L 40-136 Serum or plasma aspartate aminotransfera se measurement (enzymatic activity/volume) 12 U/L 5-34 Serum or plasma alanine aminotransferase measurement (enzymatic activity/volume) 11 U/L 0-55 Serum or plasma protein measurement (mass/volume) 7.1 g/dL 6.4-8.2 Serum or plasma albumin measurement (mass/volume) 4.1 g/dL 3.2-4.5 CALCIUM CORRECTED 9.3 mg/dL 8.5-10.1 Magnesium - 10/21/18 18:07 Magnesium 2.1 mg/dL 1.8-2.4 PT panel in platelet poor plasma by coag ulation assay - 10/21/18 18:07 Prothrombin time (PT) in platelet poor plasma by coagu lation assay 13.8 s 12.2-14.7 INR in platelet poor plasma or blood by coagulation as say 1.1 0.8-1.4 Activated partial thromboplastin time (a PTT) in platelet poor plasma bycoagulation assay - 10/21/18 18:07 Activated partial thromboplastin time (a PTT) in platelet poor plasma bycoagulation assay 30 s 24-35 Fibrin D-dimer FEU measurement in platel et poor plasma (mass/volume) - 10/21/18 18:07 Fibrin D-dimer FEU measurement in platelet poor plasma (mass/volume) 0.24 ug/mL 0.00-0.49 Serum or plasma troponin i.cardiac measu rement (mass/volume) - 10/21/18 18:07 Serum or plasma troponin i.cardiac measurement (mass/v olume) < ng/mL <0.30 Myoglobin, serum - 10/21/18 18:07 Myoglobin, serum 21.3 ng/mL 10.0-92.0 Lipase - 10/21/18 18:07 Lipase 38 U/L 8-78 Urine drug screening test - 10/21/18 18: 15 Urine phencyclidine detection by screening method NEGATIVE NEGATIVE Urine benzodiazepines detection by screening method NEGATIVE NEGATIVE Urine cocaine detection NEGATIVE NEGATI VE Urine amphetamines detection by screening method P OSITIVE NEGATIVE Urine methamphetamine detection by screening method NEGATIVE NEGATIVE Urine cannabinoids detection by screening method N EGATIVE NEGATIVE Urine opiates detection by screening method NEGATI VE NEGATIVE Urine barbiturates detection NEGATIVE N EGATIVE Screening urine tricyclic antidepressants detection NEGATIVE NEGATIVE Urine methadone detection by screening method NEGA TIVE NEGATIVE Urine oxycodone detection NEGATIVE NEGA TIVE Urine propoxyphene detection NEGATIVE N EGATIVE SYPHILIS (RPR W/ REFLEX CONFIRMATION) - 02/12/19 12:29 RPR (DX) W/REFL TITER AND CONFIRMATORY TESTING NON-REACTIVE NON-REACTIVE Complete urinalysis with reflex to cultu re - 04/11/19 12:15 Urine color determination YELLOW NRG Urine clarity determination CLEAR NR G Urine pH measurement by test strip 7 5-9 Specific gravity of urine by test strip 1.010 1.016-1.022 Urine protein assay by test strip, semi-quantitative 1+ NEGATIVE Urine glucose detection by automated test strip NE GATIVE NEGATIVE Erythrocytes detection in urine sediment by light micr oscopy NEGATIVE NEGATIVE Urine ketones detection by automated test strip NE GATIVE NEGATIVE Urine nitrite detection by test strip NEGATIVE NEGATIVE Urine total bilirubin detection by test strip NEGA TIVE NEGATIVE Urine urobilinogen measurement by automated test strip (mass/volume) NORMAL NORMAL Urine leukocyte esterase detection by dipstick 3+ NEGATIVE Automated urine sediment erythrocyte cou nt by microscopy (number/high power field) NONE NRG Automated urine sediment leukocyte count by microscopy (number/high power field) [HPF] NRG Bacteria detection in urine sediment by light microsco py NEGATIVE NRG Squamous epithelial cells detection in u rine sediment by light microscopy 5-10 NRG Crystals detection in urine sediment by light microsco py NONE NRG Casts detection in urine sediment by light microscopy NONE NRG Mucus detection in urine sediment by light microscopy NEGATIVE NRG Complete urinalysis with reflex to culture CULTURE PENDING NRG Urine Trichomonas species detection by light microscop y MODERATE NRG Urine drug screening test - 04/11/19 12: 15 Urine phencyclidine detection by screening method NEGATIVE NEGATIVE Urine benzodiazepines detection by screening method NEGATIVE NEGATIVE Urine cocaine detection NEGATIVE NEGATI VE Urine amphetamines detection by screening method N EGATIVE NEGATIVE Urine methamphetamine detection by screening method NEGATIVE NEGATIVE Urine cannabinoids detection by screening method N EGATIVE NEGATIVE Urine opiates detection by screening method NEGATI VE NEGATIVE Urine barbiturates detection NEGATIVE N EGATIVE Screening urine tricyclic antidepressants detection NEGATIVE NEGATIVE Urine methadone detection by screening method NEGA TIVE NEGATIVE Urine oxycodone detection NEGATIVE NEGA TIVE Urine propoxyphene detection NEGATIVE N EGATIVE Bacterial urine culture - 04/11/19 12:15 Bacterial urine culture 3 OR MORE NRG COLONY COUNT >100,000/ML NRG FTX;REPORTABLE SUGGESTING PROBABLE COLLECTION NRG FREE TEXT ENTRY 2 CONTAMINATION WITH SKIN BERNIE NRG FREE TEXT ENTRY 3 NO SUSCEPTIBILITY PERFORMED NRG Urine Neisseria gonorrhoeae DNA assay - 04/11/19 12:15 Gonorrhea amp DNA-urine Not Detected No t Detected Complete urinalysis with reflex to cultu re - 04/26/19 14:37 Urine color determination YELLOW NRG Urine clarity determination CLEAR NR G Urine pH measurement by test strip 7 5-9 Specific gravity of urine by test strip 1.005 1.016-1.022 Urine protein assay by test strip, semi-quantitative NEGATIVE NEGATIVE Urine glucose detection by automated test strip NE GATIVE NEGATIVE Erythrocytes detection in urine sediment by light micr oscopy NEGATIVE NEGATIVE Urine ketones detection by automated test strip NE GATIVE NEGATIVE Urine nitrite detection by test strip NEGATIVE NEGATIVE Urine total bilirubin detection by test strip NEGA TIVE NEGATIVE Urine urobilinogen measurement by automated test strip (mass/volume) NORMAL NORMAL Urine leukocyte esterase detection by dipstick 2+ NEGATIVE Automated urine sediment erythrocyte cou nt by microscopy (number/high power field) NONE NRG Automated urine sediment leukocyte count by microscopy (number/high power field) [HPF] NRG Bacteria detection in urine sediment by light microsco py TRACE NRG Squamous epithelial cells detection in u rine sediment by light microscopy 5-10 NRG Crystals detection in urine sediment by light microsco py NONE NRG Casts detection in urine sediment by light microscopy NONE NRG Mucus detection in urine sediment by light microscopy NEGATIVE NRG Complete urinalysis with reflex to culture NO NRG Urine drug screening test - 04/26/19 14: 37 Urine phencyclidine detection by screening method NEGATIVE NEGATIVE Urine benzodiazepines detection by screening method NEGATIVE NEGATIVE Urine cocaine detection NEGATIVE NEGATI VE Urine amphetamines detection by screening method N EGATIVE NEGATIVE Urine methamphetamine detection by screening method NEGATIVE NEGATIVE Urine cannabinoids detection by screening method N EGATIVE NEGATIVE Urine opiates detection by screening method NEGATI VE NEGATIVE Urine barbiturates detection NEGATIVE N EGATIVE Screening urine tricyclic antidepressants detection NEGATIVE NEGATIVE Urine methadone detection by screening method NEGA TIVE NEGATIVE Urine oxycodone detection NEGATIVE NEGA TIVE Urine propoxyphene detection NEGATIVE N EGATIVE Complete urinalysis with reflex to cultu re - 05/02/19 20:25 Urine color determination YELLOW NRG Urine clarity determination CLEAR NR G Urine pH measurement by test strip 7 5-9 Specific gravity of urine by test strip 1.010 1.016-1.022 Urine protein assay by test strip, semi-quantitative NEGATIVE NEGATIVE Urine glucose detection by automated test strip NE GATIVE NEGATIVE Erythrocytes detection in urine sediment by light micr oscopy NEGATIVE NEGATIVE Urine ketones detection by automated test strip NE GATIVE NEGATIVE Urine nitrite detection by test strip NEGATIVE NEGATIVE Urine total bilirubin detection by test strip NEGA TIVE NEGATIVE Urine urobilinogen measurement by automated test strip (mass/volume) NORMAL NORMAL Urine leukocyte esterase detection by dipstick 1+ NEGATIVE Automated urine sediment erythrocyte cou nt by microscopy (number/high power field) NONE NRG Automated urine sediment leukocyte count by microscopy (number/high power field) [HPF] NRG Bacteria detection in urine sediment by light microsco py TRACE NRG Squamous epithelial cells detection in u rine sediment by light microscopy 5-10 NRG Crystals detection in urine sediment by light microsco py PRESENT NRG Casts detection in urine sediment by light microscopy NONE NRG Mucus detection in urine sediment by light microscopy NEGATIVE NRG Complete urinalysis with reflex to culture NO NRG Amorphous sediment detection in urine sediment by ligh t microscopy FEW HAN PHOSPHATE NRG Urine protein/creatinine mass ratio - 20:25 Urine protein measurement (mass/volume) < mg/dL 6-12 Urine creatinine measurement (mass/volume) 33 mg/d L 30-125 Urine protein/creatinine mass ratio TNP NRG Complete blood count (CBC) with automate d white blood cell (WBC) differential - 05/02/19 21:40 Blood leukocytes automated count (number/volume) 9.4 10*3/uL 4.3-11.0 Blood erythrocytes automated count (number/volume) 4.07 10*6/uL 4.35-5.85 Venous blood hemoglobin measurement (mass/volume) 8.9 g/dL 11.5-16.0 Blood hematocrit (volume fraction) 29 % 35-52 Automated erythrocyte mean corpuscular volume 71 [ foz_us] 80-99 Automated erythrocyte mean corpuscular h emoglobin (mass per erythrocyte) 22 pg 25-34 Automated erythrocyte mean corpuscular h emoglobin concentration measurement (mass/volume) 31 g/dL 32-36 Automated erythrocyte distribution width ratio 16. 7 % 10.0- 14.5 Automated blood platelet count (count/volume) 239 10*3/uL 130-400 Automated blood platelet mean volume measurement 11.0 [foz_us] 7.4-10.4 Automated blood neutrophils/100 leukocytes 65 % 42-75 Automated blood lymphocytes/100 leukocytes 23 % 12-44 Blood monocytes/100 leukocytes 11 % 0-12 Automated blood eosinophils/100 leukocytes 1 % 0-10 Automated blood basophils/100 leukocytes 0 % 0-10 Blood neutrophils automated count (number/volume) 6.1 10*3 1.8-7.8 Blood lymphocytes automated count (number/volume) 2.1 10*3 1.0-4.0 Blood monocytes automated count (number/volume) 1. 0 10*3 0.0-1.0 Automated eosinophil count 0.1 10*3/uL 0 .0-0.3 Automated blood basophil count (count/volume) 0.0 10*3/uL 0.0-0.1 Comprehensive metabolic panel - 05/02/19 21:40 Serum or plasma sodium measurement (moles/volume) 139 mmol/L 135-145 Serum or plasma potassium measurement (moles/volume) 3.1 mmol/L 3.6-5.0 Serum or plasma chloride measurement (moles/volume) 109 mmol/L 98-107 Carbon dioxide 19 mmol/L 21-32 Serum or plasma anion gap determination (moles/volume) 11 mmol/L 5-14 Serum or plasma urea nitrogen measurement (mass/volume ) 4 mg/dL 7-18 Serum or plasma creatinine measurement (mass/volume) 0.63 mg/dL 0.60-1.30 Serum or plasma urea nitrogen/creatinine mass ratio 6 NRG Serum or plasma creatinine measurement w ith calculation of estimated glomerular filtration rate > NRG Serum or plasma glucose measurement (mass/volume) 75 mg/dL 70-105 Serum or plasma calcium measurement (mass/volume) 8.9 mg/dL 8.5-10.1 Serum or plasma total bilirubin measurement (mass/volu me) 0.6 mg/dL 0.1-1.0 Serum or plasma alkaline phosphatase tegan surement (enzymatic activity/volume) 131 U/L 40-136 Serum or plasma aspartate aminotransfera se measurement (enzymatic activity/volume) 10 U/L 5-34 Serum or plasma alanine aminotransferase measurement (enzymatic activity/volume) < U/L 0-55 Serum or plasma protein measurement (mass/volume) 6.8 g/dL 6.4-8.2 Serum or plasma albumin measurement (mass/volume) 3.5 g/dL 3.2-4.5 CALCIUM CORRECTED 9.3 mg/dL 8.5-10.1 Serum or plasma uric acid measurement (m ass/volume) - 05/02/19 21:40 Serum or plasma uric acid measurement (mass/volume) 4.1 mg/dL 2.6-7.2 Serum ragweed IgE antibody assay - 05/02 21:40 Serum ragweed IgE antibody assay 200 U/L 125-220 Blood type T Indirect antibody screen [facility] - 05/02/19 21:40 WRISTBAND NUMBER [id number] NRG ABO+Rh group OP NRG Blood group antibody screen NEGATIVE NR G Whole blood hemoglobin and hematocrit [facility] - 05/03/19 10:55 Venous blood hemoglobin measurement (mass/volume) 6.9 g/dL 11.5-16.0 Blood hematocrit (volume fraction) 23 % 35-52 Serum or plasma potassium measurement (m oles/volume) - 05/03/19 10:55 Serum or plasma potassium measurement (moles/volume) 3.5 mmol/L 3.6-5.0 Complete blood count (CBC) with automate d white blood cell (WBC) differential - 05/04/19 05:55 Blood leukocytes automated count (number/volume) 10.2 10*3/uL 4.3-11.0 Blood erythrocytes automated count (number/volume) 3.34 10*6/uL 4.35-5.85 Venous blood hemoglobin measurement (mass/volume) 7.1 g/dL 11.5-16.0 Blood hematocrit (volume fraction) 24 % 35-52 Automated erythrocyte mean corpuscular volume 73 [ foz_us] 80-99 Automated erythrocyte mean corpuscular h emoglobin (mass per erythrocyte) 21 pg 25-34 Automated erythrocyte mean corpuscular h emoglobin concentration measurement (mass/volume) 29 g/dL 32-36 Automated erythrocyte distribution width ratio 16. 8 % 10.0- 14.5 Automated blood platelet count (count/volume) 219 10*3/uL 130-400 Automated blood platelet mean volume measurement 10.1 [foz_us] 7.4-10.4 Automated blood neutrophils/100 leukocytes 75 % 42-75 Automated blood lymphocytes/100 leukocytes 15 % 12-44 Blood monocytes/100 leukocytes 10 % 0-12 Automated blood eosinophils/100 leukocytes 1 % 0-10 Automated blood basophils/100 leukocytes 0 % 0-10 Blood neutrophils automated count (number/volume) 7.6 10*3 1.8-7.8 Blood lymphocytes automated count (number/volume) 1.5 10*3 1.0-4.0 Blood monocytes automated count (number/volume) 1. 0 10*3 0.0-1.0 Automated eosinophil count 0.1 10*3/uL 0 .0-0.3 Automated blood basophil count (count/volume) 0.0 10*3/uL 0.0-0.1 Complete blood count (CBC) with automate d white blood cell (WBC) differential - 07/10/19 14:57 Blood leukocytes automated count (number/volume) 7.4 10*3/uL 4.3-11.0 Blood erythrocytes automated count (number/volume) 4.26 10*6/uL 4.35-5.85 Venous blood hemoglobin measurement (mass/volume) 9.4 g/dL 11.5-16.0 Blood hematocrit (volume fraction) 31 % 35-52 Automated erythrocyte mean corpuscular volume 74 [ foz_us] 80-99 Automated erythrocyte mean corpuscular h emoglobin (mass per erythrocyte) 22 pg 25-34 Automated erythrocyte mean corpuscular h emoglobin concentration measurement (mass/volume) 30 g/dL 32-36 Automated erythrocyte distribution width ratio 22. 7 % 10.0- 14.5 Automated blood platelet count (count/volume) 300 10*3/uL 130-400 Automated blood platelet mean volume measurement 11.3 [foz_us] 7.4-10.4 Automated blood neutrophils/100 leukocytes 68 % 42-75 Automated blood lymphocytes/100 leukocytes 23 % 12-44 Blood monocytes/100 leukocytes 8 % 0-12 Automated blood eosinophils/100 leukocytes 2 % 0-10 Automated blood basophils/100 leukocytes 0 % 0-10 Blood neutrophils automated count (number/volume) 5.0 10*3 1.8-7.8 Blood lymphocytes automated count (number/volume) 1.7 10*3 1.0-4.0 Blood monocytes automated count (number/volume) 0. 6 10*3 0.0-1.0 Automated eosinophil count 0.1 10*3/uL 0 .0-0.3 Automated blood basophil count (count/volume) 0.0 10*3/uL 0.0-0.1 Complete urinalysis with reflex to cultu re - 07/10/19 14:57 Urine color determination YELLOW NRG Urine clarity determination CLEAR NR G Urine pH measurement by test strip 6 5-9 Specific gravity of urine by test strip 1.020 1.016-1.022 Urine protein assay by test strip, semi-quantitative 1+ NEGATIVE Urine glucose detection by automated test strip NE GATIVE NEGATIVE Erythrocytes detection in urine sediment by light micr oscopy 5+ NEGATIVE Urine ketones detection by automated test strip NE GATIVE NEGATIVE Urine nitrite detection by test strip NEGATIVE NEGATIVE Urine total bilirubin detection by test strip NEGA TIVE NEGATIVE Urine urobilinogen measurement by automated test strip (mass/volume) NORMAL NORMAL Urine leukocyte esterase detection by dipstick 1+ NEGATIVE Automated urine sediment erythrocyte cou nt by microscopy (number/high power field) [HPF] NRG Automated urine sediment leukocyte count by microscopy (number/high power field) RARE NRG Bacteria detection in urine sediment by light microsco py TRACE NRG Squamous epithelial cells detection in u rine sediment by light microscopy 0-2 NRG Crystals detection in urine sediment by light microsco py NONE NRG Casts detection in urine sediment by light microscopy NONE NRG Mucus detection in urine sediment by light microscopy NEGATIVE NRG Complete urinalysis with reflex to culture NO NRG Serum or plasma choriogonadotropin (preg jessica test) detection - 07/10/19 14:57 Serum or plasma choriogonadotropin ( test) de tection NEGATIVE NEGATIVE Comprehensive metabolic panel - 07/10/19 14:57 Serum or plasma sodium measurement (moles/volume) 139 mmol/L 135-145 Serum or plasma potassium measurement (moles/volume) 4.1 mmol/L 3.6-5.0 Serum or plasma chloride measurement (moles/volume) 110 mmol/L 98-107 Carbon dioxide 19 mmol/L 21-32 Serum or plasma anion gap determination (moles/volume) 10 mmol/L 5-14 Serum or plasma urea nitrogen measurement (mass/volume ) 9 mg/dL 7-18 Serum or plasma creatinine measurement (mass/volume) 0.79 mg/dL 0.60-1.30 Serum or plasma urea nitrogen/creatinine mass ratio 11 NRG Serum or plasma creatinine measurement w ith calculation of estimated glomerular filtration rate > NRG Serum or plasma glucose measurement (mass/volume) 85 mg/dL 70-105 Serum or plasma calcium measurement (mass/volume) 8.7 mg/dL 8.5-10.1 Serum or plasma total bilirubin measurement (mass/volu me) 0.2 mg/dL 0.1-1.0 Serum or plasma alkaline phosphatase tegan surement (enzymatic activity/volume) 43 U/L 40-136 Serum or plasma aspartate aminotransfera se measurement (enzymatic activity/volume) 17 U/L 5-34 Serum or plasma alanine aminotransferase measurement (enzymatic activity/volume) 9 U/L 0-55 Serum or plasma protein measurement (mass/volume) 7.0 g/dL 6.4-8.2 Serum or plasma albumin measurement (mass/volume) 4.1 g/dL 3.2-4.5 CALCIUM CORRECTED 8.6 mg/dL 8.5-10.1 Complete blood count (CBC) with automate d white blood cell (WBC) differential - 08/10/19 19:21 Blood leukocytes automated count (number/volume) 11.6 10*3/uL 4.3-11.0 Blood erythrocytes automated count (number/volume) 4.64 10*6/uL 4.35-5.85 Venous blood hemoglobin measurement (mass/volume) 10.8 g/dL 11.5-16.0 Blood hematocrit (volume fraction) 34 % 35-52 Automated erythrocyte mean corpuscular volume 74 [ foz_us] 80-99 Automated erythrocyte mean corpuscular h emoglobin (mass per erythrocyte) 23 pg 25-34 Automated erythrocyte mean corpuscular h emoglobin concentration measurement (mass/volume) 32 g/dL 32-36 Automated erythrocyte distribution width ratio 19. 6 % 10.0- 14.5 Automated blood platelet count (count/volume) 316 10*3/uL 130-400 Automated blood platelet mean volume measurement 10.8 [foz_us] 7.4-10.4 Automated blood neutrophils/100 leukocytes 76 % 42-75 Automated blood lymphocytes/100 leukocytes 14 % 12-44 Blood monocytes/100 leukocytes 9 % 0-12 Automated blood eosinophils/100 leukocytes 1 % 0-10 Automated blood basophils/100 leukocytes 0 % 0-10 Blood neutrophils automated count (number/volume) 8.8 10*3 1.8-7.8 Blood lymphocytes automated count (number/volume) 1.6 10*3 1.0-4.0 Blood monocytes automated count (number/volume) 1. 0 10*3 0.0-1.0 Automated eosinophil count 0.1 10*3/uL 0 .0-0.3 Automated blood basophil count (count/volume) 0.0 10*3/uL 0.0-0.1 PT panel in platelet poor plasma by coag ulation assay - 08/10/19 19:21 Prothrombin time (PT) in platelet poor plasma by coagu lation assay 14.4 s 12.2-14.7 INR in platelet poor plasma or blood by coagulation as say 1.1 0.8-1.4 Activated partial thromboplastin time (a PTT) in platelet poor plasma bycoagulation assay - 08/10/19 19:21 Activated partial thromboplastin time (a PTT) in platelet poor plasma bycoagulation assay 28 s 24-35 Comprehensive metabolic panel - 08/10/19 19:21 Serum or plasma sodium measurement (moles/volume) 140 mmol/L 135-145 Serum or plasma potassium measurement (moles/volume) 3.6 mmol/L 3.6-5.0 Serum or plasma chloride measurement (moles/volume) 109 mmol/L 98-107 Carbon dioxide 21 mmol/L 21-32 Serum or plasma anion gap determination (moles/volume) 10 mmol/L 5-14 Serum or plasma urea nitrogen measurement (mass/volume ) 12 mg/dL 7-18 Serum or plasma creatinine measurement (mass/volume) 0.78 mg/dL 0.60-1.30 Serum or plasma urea nitrogen/creatinine mass ratio 15 NRG Serum or plasma creatinine measurement w ith calculation of estimated glomerular filtration rate > NRG Serum or plasma glucose measurement (mass/volume) 87 mg/dL 70-105 Serum or plasma calcium measurement (mass/volume) 9.2 mg/dL 8.5-10.1 Serum or plasma total bilirubin measurement (mass/volu me) 0.3 mg/dL 0.1-1.0 Serum or plasma alkaline phosphatase tegan surement (enzymatic activity/volume) 58 U/L 40-136 Serum or plasma aspartate aminotransfera se measurement (enzymatic activity/volume) 12 U/L 5-34 Serum or plasma alanine aminotransferase measurement (enzymatic activity/volume) 13 U/L 0-55 Serum or plasma protein measurement (mass/volume) 7.4 g/dL 6.4-8.2 Serum or plasma albumin measurement (mass/volume) 4.4 g/dL 3.2-4.5 CALCIUM CORRECTED 8.9 mg/dL 8.5-10.1 Magnesium - 08/10/19 19:21 Magnesium 2.0 mg/dL 1.6-2.4 Serum or plasma creatine kinase measurem ent (enzymatic activity/volume) - 08/10/19 19:21 Serum or plasma creatine kinase measurem ent (enzymatic activity/volume) 63 U/L 29-168 Serum or plasma creatine kinase MB measu rement (enzymatic activity/volume) - 08/10/19 19:21 Serum or plasma creatine kinase MB measu rement (enzymatic activity/volume) 0.4 ng/mL <6.6 Serum or plasma troponin i.cardiac measu rement (mass/volume) - 08/10/19 19:21 Serum or plasma troponin i.cardiac measurement (mass/v olume) < ng/mL <0.028 Myoglobin, serum - 08/10/19 19:21 Myoglobin, serum 58.0 ng/mL 10.0-92.0 Serum or plasma lithium measurement (mol es/volume) - 08/10/19 19:21 BNP PT < 10.0 <100.0 Serum or plasma amylase measurement (enz ymatic activity/volume) - 08/10/19 19:21 Serum or plasma amylase measurement (enzymatic activit y/volume) 88 U/L 25-125 Serum or plasma thyrotropin measurement by detection limit <=0.05 miu/l (units/volume) - 08/10/19 19:21 Serum or plasma thyrotropin measurement by detection limit <=0.05 miu/l (units/volume) 1.37 u[iU]/mL 0.35-4.94 Serum or plasma acetaminophen measuremen t (mass/volume) - 08/10/19 19:21 Serum or plasma acetaminophen measurement (mass/volume ) < ug/mL 10-30 Serum or plasma ethanol measurement (mas s/volume) - 08/10/19 19:21 Serum or plasma ethanol measurement (mass/volume) < mg/dL <10 Complete urinalysis with reflex to cultu re - 08/10/19 19:25 Urine color determination YELLOW NRG Urine clarity determination CLEAR NR G Urine pH measurement by test strip 5 5-9 Specific gravity of urine by test strip 1.015 1.016-1.022 Urine protein assay by test strip, semi-quantitative NEGATIVE NEGATIVE Urine glucose detection by automated test strip NE GATIVE NEGATIVE Erythrocytes detection in urine sediment by light micr oscopy NEGATIVE NEGATIVE Urine ketones detection by automated test strip NE GATIVE NEGATIVE Urine nitrite detection by test strip NEGATIVE NEGATIVE Urine total bilirubin detection by test strip NEGA TIVE NEGATIVE Urine urobilinogen measurement by automated test strip (mass/volume) NORMAL NORMAL Urine leukocyte esterase detection by dipstick NEG ATIVE NEGATIVE Automated urine sediment erythrocyte cou nt by microscopy (number/high power field) NONE NRG Automated urine sediment leukocyte count by microscopy (number/high power field) RARE NRG Bacteria detection in urine sediment by light microsco py TRACE NRG Squamous epithelial cells detection in u rine sediment by light microscopy 5-10 NRG Crystals detection in urine sediment by light microsco py NONE NRG Casts detection in urine sediment by light microscopy NONE NRG Mucus detection in urine sediment by light microscopy NEGATIVE NRG Complete urinalysis with reflex to culture NO NRG Urine drug screening test - 08/10/19 19: 25 Urine phencyclidine detection by screening method NEGATIVE NEGATIVE Urine benzodiazepines detection by screening method NEGATIVE NEGATIVE Urine cocaine detection NEGATIVE NEGATI VE Urine amphetamines detection by screening method N EGATIVE NEGATIVE Urine methamphetamine detection by screening method NEGATIVE NEGATIVE Urine cannabinoids detection by screening method N EGATIVE NEGATIVE Urine opiates detection by screening method NEGATI VE NEGATIVE Urine barbiturates detection NEGATIVE N EGATIVE Screening urine tricyclic antidepressants detection NEGATIVE NEGATIVE Urine methadone detection by screening method NEGA TIVE NEGATIVE Urine oxycodone detection NEGATIVE NEGA TIVE Urine propoxyphene detection NEGATIVE N EGATIVE Complete blood count (CBC) with automate d white blood cell (WBC) differential - 09/20/19 15:10 Blood leukocytes automated count (number/volume) 8.1 10*3/uL 4.3-11.0 Blood erythrocytes automated count (number/volume) 4.39 10*6/uL 4.35-5.85 Venous blood hemoglobin measurement (mass/volume) 10.3 g/dL 11.5-16.0 Blood hematocrit (volume fraction) 33 % 35-52 Automated erythrocyte mean corpuscular volume 74 [ foz_us] 80-99 Automated erythrocyte mean corpuscular h emoglobin (mass per erythrocyte) 23 pg 25-34 Automated erythrocyte mean corpuscular h emoglobin concentration measurement (mass/volume) 32 g/dL 32-36 Automated erythrocyte distribution width ratio 16. 7 % 10.0- 14.5 Automated blood platelet count (count/volume) 311 10*3/uL 130-400 Automated blood platelet mean volume measurement 10.7 [foz_us] 7.4-10.4 Automated blood neutrophils/100 leukocytes 77 % 42-75 Automated blood lymphocytes/100 leukocytes 15 % 12-44 Blood monocytes/100 leukocytes 7 % 0-12 Automated blood eosinophils/100 leukocytes 1 % 0-10 Automated blood basophils/100 leukocytes 0 % 0-10 Blood neutrophils automated count (number/volume) 6.3 10*3 1.8-7.8 Blood lymphocytes automated count (number/volume) 1.2 10*3 1.0-4.0 Blood monocytes automated count (number/volume) 0. 6 10*3 0.0-1.0 Automated eosinophil count 0.0 10*3/uL 0 .0-0.3 Automated blood basophil count (count/volume) 0.0 10*3/uL 0.0-0.1 Comprehensive metabolic panel - 09/20/19 15:10 Serum or plasma sodium measurement (moles/volume) 140 mmol/L 135-145 Serum or plasma potassium measurement (moles/volume) 3.8 mmol/L 3.6-5.0 Serum or plasma chloride measurement (moles/volume) 109 mmol/L 98-107 Carbon dioxide 23 mmol/L 21-32 Serum or plasma anion gap determination (moles/volume) 8 mmol/L 5-14 Serum or plasma urea nitrogen measurement (mass/volume ) 11 mg/dL 7-18 Serum or plasma creatinine measurement (mass/volume) 0.80 mg/dL 0.60-1.30 Serum or plasma urea nitrogen/creatinine mass ratio 14 NRG Serum or plasma creatinine measurement w ith calculation of estimated glomerular filtration rate > NRG Serum or plasma glucose measurement (mass/volume) 90 mg/dL 70-105 Serum or plasma calcium measurement (mass/volume) 9.0 mg/dL 8.5-10.1 Serum or plasma total bilirubin measurement (mass/volu me) 0.4 mg/dL 0.1-1.0 Serum or plasma alkaline phosphatase tegan surement (enzymatic activity/volume) 54 U/L 40-136 Serum or plasma aspartate aminotransfera se measurement (enzymatic activity/volume) 13 U/L 5-34 Serum or plasma alanine aminotransferase measurement (enzymatic activity/volume) 10 U/L 0-55 Serum or plasma protein measurement (mass/volume) 7.4 g/dL 6.4-8.2 Serum or plasma albumin measurement (mass/volume) 4.6 g/dL 3.2-4.5 Serum or plasma C reactive protein measu rement (mass/volume) - 09/20/19 15:10 Serum or plasma C reactive protein measurement (mass/v olume) 0.04 mg/dL 0.00-0.50 Serum or plasma salicylates measurement (mass/volume) - 09/20/19 15:10 Serum or plasma salicylates measurement (mass/volume) < mg/dL 5.0-20.0 Serum or plasma acetaminophen measuremen t (mass/volume) - 09/20/19 15:10 Serum or plasma acetaminophen measurement (mass/volume ) < ug/mL 10-30 Serum or plasma ethanol measurement (mas s/volume) - 09/20/19 15:10 Serum or plasma ethanol measurement (mass/volume) < mg/dL <10 Complete urinalysis with reflex to cultu re - 09/20/19 16:15 Urine color determination RED NRG Urine clarity determination CLOUDY NR G Urine pH measurement by test strip 5.5 5-9 Specific gravity of urine by test strip 1.025 1.016-1.022 Urine protein assay by test strip, semi-quantitative 2+ NEGATIVE Urine glucose detection by automated test strip NE GATIVE NEGATIVE Erythrocytes detection in urine sediment by light micr oscopy 3+ NEGATIVE Urine ketones detection by automated test strip NE GATIVE NEGATIVE Urine nitrite detection by test strip NEGATIVE NEGATIVE Urine total bilirubin detection by test strip NEGA TIVE NEGATIVE Urine urobilinogen measurement by automated test strip (mass/volume) 0.2 mg/dL < = 1.0 Urine leukocyte esterase detection by dipstick 2+ NEGATIVE Automated urine sediment erythrocyte cou nt by microscopy (number/high power field) TNTC NRG Automated urine sediment leukocyte count by microscopy (number/high power field) [HPF] NRG Bacteria detection in urine sediment by light microsco py NEGATIVE NRG Crystals detection in urine sediment by light microsco py NONE NRG Casts detection in urine sediment by light microscopy NONE NRG Mucus detection in urine sediment by light microscopy NEGATIVE NRG Complete urinalysis with reflex to culture NO NRG Urine drug screening test - 09/20/19 16: 15 Urine phencyclidine detection by screening method NEGATIVE NEGATIVE Urine benzodiazepines detection by screening method NEGATIVE NEGATIVE Urine cocaine detection NEGATIVE NEGATI VE Urine amphetamines detection by screening method N EGATIVE NEGATIVE Urine methamphetamine detection by screening method NEGATIVE NEGATIVE Urine cannabinoids detection by screening method N EGATIVE NEGATIVE Urine opiates detection by screening method NEGATI VE NEGATIVE Urine barbiturates detection NEGATIVE N EGATIVE Screening urine tricyclic antidepressants detection NEGATIVE NEGATIVE Urine methadone detection by screening method NEGA TIVE NEGATIVE Urine oxycodone detection NEGATIVE NEGA TIVE Urine propoxyphene detection NEGATIVE N EGATIVE Complete blood count (CBC) with automate d white blood cell (WBC) differential - 10/03/19 20:47 Blood leukocytes automated count (number/volume) 10.2 10*3/uL 4.3-11.0 Blood erythrocytes automated count (number/volume) 4.52 10*6/uL 4.35-5.85 Venous blood hemoglobin measurement (mass/volume) 10.6 g/dL 11.5-16.0 Blood hematocrit (volume fraction) 34 % 35-52 Automated erythrocyte mean corpuscular volume 75 [ foz_us] 80-99 Automated erythrocyte mean corpuscular h emoglobin (mass per erythrocyte) 23 pg 25-34 Automated erythrocyte mean corpuscular h emoglobin concentration measurement (mass/volume) 32 g/dL 32-36 Automated erythrocyte distribution width ratio 15. 9 % 10.0- 14.5 Automated blood platelet count (count/volume) 377 10*3/uL 130-400 Automated blood platelet mean volume measurement 10.7 [foz_us] 7.4-10.4 Automated blood neutrophils/100 leukocytes 69 % 42-75 Automated blood lymphocytes/100 leukocytes 23 % 12-44 Blood monocytes/100 leukocytes 7 % 0-12 Automated blood eosinophils/100 leukocytes 1 % 0-10 Automated blood basophils/100 leukocytes 0 % 0-10 Blood neutrophils automated count (number/volume) 7.0 10*3 1.8-7.8 Blood lymphocytes automated count (number/volume) 2.3 10*3 1.0-4.0 Blood monocytes automated count (number/volume) 0. 8 10*3 0.0-1.0 Automated eosinophil count 0.1 10*3/uL 0 .0-0.3 Automated blood basophil count (count/volume) 0.0 10*3/uL 0.0-0.1 Serum or plasma choriogonadotropin (preg jessica test) detection - 10/03/19 20:47 Serum or plasma choriogonadotropin ( test) de tection NEGATIVE NEGATIVE Comprehensive metabolic panel - 10/03/19 20:47 Serum or plasma sodium measurement (moles/volume) 140 mmol/L 135-145 Serum or plasma potassium measurement (moles/volume) 3.8 mmol/L 3.6-5.0 Serum or plasma chloride measurement (moles/volume) 107 mmol/L 98-107 Carbon dioxide 22 mmol/L 21-32 Serum or plasma anion gap determination (moles/volume) 11 mmol/L 5-14 Serum or plasma urea nitrogen measurement (mass/volume ) 11 mg/dL 7-18 Serum or plasma creatinine measurement (mass/volume) 0.83 mg/dL 0.60-1.30 Serum or plasma urea nitrogen/creatinine mass ratio 13 NRG Serum or plasma creatinine measurement w ith calculation of estimated glomerular filtration rate > NRG Serum or plasma glucose measurement (mass/volume) 86 mg/dL 70-105 Serum or plasma calcium measurement (mass/volume) 9.5 mg/dL 8.5-10.1 Serum or plasma total bilirubin measurement (mass/volu me) 0.4 mg/dL 0.1-1.0 Serum or plasma alkaline phosphatase tegan surement (enzymatic activity/volume) 56 U/L 40-136 Serum or plasma aspartate aminotransfera se measurement (enzymatic activity/volume) 13 U/L 5-34 Serum or plasma alanine aminotransferase measurement (enzymatic activity/volume) 10 U/L 0-55 Serum or plasma protein measurement (mass/volume) 7.8 g/dL 6.4-8.2 Serum or plasma albumin measurement (mass/volume) 4.8 g/dL 3.2-4.5 Magnesium - 10/03/19 20:47 Magnesium 2.0 mg/dL 1.6-2.4 Urine drug screening test - 10/03/19 21: 53 Urine phencyclidine detection by screening method NEGATIVE NEGATIVE Urine benzodiazepines detection by screening method NEGATIVE NEGATIVE Urine cocaine detection NEGATIVE NEGATI VE Urine amphetamines detection by screening method N EGATIVE NEGATIVE Urine methamphetamine detection by screening method NEGATIVE NEGATIVE Urine cannabinoids detection by screening method N EGATIVE NEGATIVE Urine opiates detection by screening method NEGATI VE NEGATIVE Urine barbiturates detection NEGATIVE N EGATIVE Screening urine tricyclic antidepressants detection NEGATIVE NEGATIVE Urine methadone detection by screening method NEGA TIVE NEGATIVE Urine oxycodone detection NEGATIVE NEGA TIVE Urine propoxyphene detection NEGATIVE N EGATIVE Complete urinalysis with reflex to cultu re - 10/03/19 21:56 Urine color determination YELLOW NRG Urine clarity determination CLEAR NR G Urine pH measurement by test strip 5.5 5-9 Specific gravity of urine by test strip >= 1.016-1.022 Urine protein assay by test strip, semi-quantitative NEGATIVE NEGATIVE Urine glucose detection by automated test strip NE GATIVE NEGATIVE Erythrocytes detection in urine sediment by light micr oscopy NEGATIVE NEGATIVE Urine ketones detection by automated test strip NE GATIVE NEGATIVE Urine nitrite detection by test strip NEGATIVE NEGATIVE Urine total bilirubin detection by test strip NEGA TIVE NEGATIVE Urine urobilinogen measurement by automated test strip (mass/volume) 0.2 mg/dL < = 1.0 Urine leukocyte esterase detection by dipstick NEG ATIVE NEGATIVE Automated urine sediment erythrocyte cou nt by microscopy (number/high power field) RARE NRG Automated urine sediment leukocyte count by microscopy (number/high power field) [HPF] NRG Bacteria detection in urine sediment by light microsco py LARGE NRG Squamous epithelial cells detection in u rine sediment by light microscopy 10-25 NRG Crystals detection in urine sediment by light microsco py NONE NRG Casts detection in urine sediment by light microscopy NONE NRG Mucus detection in urine sediment by light microscopy NEGATIVE NRG Complete urinalysis with reflex to culture YES NRG Bacterial urine culture - 10/03/19 21:56 Bacterial urine culture 3 OR MORE NRG COLONY COUNT 50,000 CFU/ML NRG FTX;REPORTABLE (GRAM POSITIVE) SUGGESTING PROBABLE NRG FREE TEXT ENTRY 2 COLLECTION CONTAMINATION WITH SK IN NRG FREE TEXT ENTRY 3 BERNIE. NO SUSCEPTIBILITY PERFOR MED NRG Encounters ACCT No. Visit Date/Time Discharge Status Pt. Type Provider Facility Loc./Unit Complaint [id number] 09/20/2019 10:00:00 09/20/2019 23:59: 59 C[id number] 02/12/2019 09:40:00 Document Registration [id number] 10/03/2019 20:38:00 22:48:00 DIS Emergency MILI DOLL, JING Izquierdo [facility] ER SEIZURE/FALL [id number] 09/20/2019 15:04:00 18:10:00 DIS Emergency MONICA WAGNER MD [facility] ER CANT REMEMBER ANYTHING, JAW SORE,HEADACHE [id number] 08/10/2019 23:39:00 01:05:00 DIS Emergency LION SANCHEZ DO [facility] ER SEIZURE,BLOODY LIP [id number] 08/10/2019 18:49:00 21:03:00 DIS Emergency LION SANCHEZ DO [facility] ER DIZZY,JAW HURTING [id number] 08/01/2019 14:41:00 15:25:00 DIS Emergency TAMERA LEVY [facility] ER BEE STING R ARM SWELLI NG [id number] 07/10/2019 14:46:00 16:04:00 DIS Emergency MORTEZA ALLISON APRN [facility] ER POSS SEIZURE [id number] 05/03/2019 01:40:00 19:55:00 DIS Inpatient CURRY CASTRO MD [facility] LDRP BACK PAIN [id number] 04/26/2019 14:27:00 16:35:00 DIS Outpatient BRYAN DU MD [facility] WSo LOWER BACK PAIN;DIZZINE SS [id number] 04/11/2019 12:02:00 15:20:00 DIS Outpatient BHARTI DOLL, JOANN Perez [facility] WSo ABD / BACK PAIN [id number] 12/15/2018 10:20:00 23:59:59 CLS Outpatient BRYAN DU MD [facility] RAD SURVEY [id number] 11/20/2018 12:09:00 23:59:59 CLS Outpatient BRYAN DU MD [facility] RAD DATES [id number] 11/10/2018 17:53:00 19:09:00 DIS Emergency MORTEZA ALLISON APRN [facility] ER PAIN IN SIDE OF NECK [id number] 10/21/2018 17:46:00 20:02:00 DIS Emergency MILI DOLL, JING Izquierdo [facility] ER CHEST HURTS,DIZ ZY,CANT FEEL L LEG [id number] 04/14/2018 06:09:00 13:00:00 DIS Inpatient BRYAN DU MD [facility] LDRP INDUCTION [id number] 04/07/2018 14:24:00 17:00:00 DIS Outpatient BRYAN DU MD [facility] WSo STOMACH PRESSURE,BACK P AIN,NAUSEA [id number] 03/07/2018 14:38:00 15:45:00 DIS [facility]BACK P AIN [id number] 11/14/2017 13:07:00 018 23:59:59 CLS Outpatient BRYAN DU MD [facility] RAD SURVEY [id number] 10/23/2017 20:10:00 017 22:19:00 DIS Emergency JING GARCES MD [facility] ER HEADACHE,DIZZIN ESS,15WKS PREG [id number] 09/01/2017 13:25:00 017 23:59:59 CLS Outpatient BRYAN DU MD [facility] RAD DATING [id number] 11/22/2016 07:55:00 017 23:59:59 CLS Outpatient BRYAN DU MD [facility] RT SEIZURE [id number] 11/11/2016 17:05:00 017 21:18:00 DIS Emergency JING GARCES MD [facility] ER SEIZURE [id number] 05/13/2016 00:10:00 016 23:59:59 CLS Preadmit [facility] [id number] 02/12/2016 15:29:00 016 00:01:00 DIS Outpatient [facility] DEM[facility] [id number] 03/20/2016 14:28:00 14:15:00 DIS Inpatient BRYAN DU MD [facility] LDRP LABOR [id number] 03/15/2016 21:48:00 23:30:00 DIS Outpatient [facility] [id number] 01/31/2016 13:45:00 23:59:59 CLS Outpatient BRYAN DU MD [facility] RAD PLACENTA PREVIA [id number] 10/30/2015 10:13:00 015 23:59:59 CLS Outpatient BRYAN DU MD [facility] RAD SURVEY [id number] 08/14/2015 18:34:00 015 20:28:00 DIS Emergency MORTEZA ALLISON APRN [facility] ER NAUSEA/VOMITING @ [address]
== END 2019-10-03 22:48 | disposition home or self-care (01) ==
LOC: EDUNIT# 20:36 → ER 20:38
DX: S00.83XA Contusion of other part of head, initial encounter (principal); G40.909 Epilepsy, unspecified, not intractable, without status epilepticus; K05.6 Periodontal disease, unspecified; I10 Essential (primary) hypertension; Z79.52 Long term (current) use of systemic steroids; W18.39XA Other fall on same level, initial encounter; Y92.22 Religious institution as the place of occurrence of the external cause
CPT/HCPCS: 36415; 70450; 70486; 72125; 80053; 80306; 81000; 83735; 84703; 85025; 87088

== ENCOUNTER 2019-12-02 17:48 | Emergency (ER) | payer MEDICAID ==
[~2019-12-02] VITALS: Ht 160 cm; Wt 54.4 kg
[~2019-12-02 17:48] MED LIST changes: -ACET-77 PO; +ACET-78 PO; +AMOX500C2 PO
[2019-12-02] MEDS ORDERED: LACTATED RINGERS 1,000 ML IV ONE (18:02)
[2019-12-02 18:37] LABS: BASOPHILS % (AUTO) 0 % (0-10); EOSINOPHILS # (AUTO) 0.1 10^3/uL (0.0-0.3); EOSINOPHILS % (AUTO) 1 % (0-10); HEMATOCRIT 34 % (35-52); HEMOGLOBIN 10.5 G/DL (11.5-16.0); LYMPHOCYTES # (AUTO) 1.3 X 10^3 (1.0-4.0); LYMPHOCYTES % (AUTO) 14 % (12-44); MEAN CORPUSCULAR HEMOGLOBIN 23 PG (25-34); MEAN CORPUSCULAR HGB CONC 31 G/DL (32-36); MEAN CORPUSCULAR VOLUME 74 FL (80-99); MEAN PLATELET VOLUME 11.2 FL (7.4-10.4); MONOCYTES # (AUTO) 0.6 X 10^3 (0.0-1.0); MONOCYTES % (AUTO) 6 % (0-12); NEUTROPHILS # (AUTO) 7.1 X 10^3 (1.8-7.8); NEUTROPHILS % (AUTO) 79 % (42-75); PLATELET COUNT 343 10^3/uL (130-400)
[2019-12-02 18:54] LABS: INR 1.1 (0.8-1.4); PROTHROMBIN TIME PATIENT 14.4 SEC (12.2-14.7)
[2019-12-02 18:57] LABS: BILIRUBIN,URINE NEGATIVE (NEGATIVE); CLARITY,URINE CLEAR; COLOR,URINE YELLOW; GLUCOSE, URINE (UA) NEGATIVE (NEGATIVE); KETONES,URINE NEGATIVE (NEGATIVE); LEUKOCYTE ESTERASE ,URINE NEGATIVE (NEGATIVE); NITRITE,URINE NEGATIVE (NEGATIVE); PH,URINE 6.5 (5-9); PROTEIN,URINE NEGATIVE (NEGATIVE)
[2019-12-02 19:07] LABS: BACTERIA,URINE FEW /HPF
[2019-12-02 19:08] LABS: ALANINE AMINOTRANSFERASE 13 U/L (0-55); ALBUMIN 4.5 GM/DL (3.2-4.5); ALKALINE PHOSPHATASE 60 U/L (40-136); BILIRUBIN,TOTAL 0.2 MG/DL (0.1-1.0); BUN/CREATININE RATIO 15; CALCIUM 9.1 MG/DL (8.5-10.1); CARBON DIOXIDE 18 MMOL/L (21-32); CHLORIDE 110 MMOL/L (98-107); CREATINE KINASE 81 U/L (29-168); CREATININE SERUM 0.71 MG/DL (0.60-1.30); GFR ESTIMATED > 60; GLUCOSE 93 MG/DL (70-105); POTASSIUM 4.2 MMOL/L (3.6-5.0); SALICYLATE < 5.0 MG/DL (5.0-20.0); SODIUM 142 MMOL/L (135-145); TOTAL PROTEIN 7.5 GM/DL (6.4-8.2)
[2019-12-02 19:16] LABS: ACETAMINOPHEN < 10 UG/ML (10-30)
[2019-12-02 19:26] LABS: AMPHETAMINE SCREEN, URINE NEGATIVE (NEGATIVE); BARBITURATE SCREEN URINE NEGATIVE (NEGATIVE); BENZODIAZEPINES SCREEN URINE NEGATIVE (NEGATIVE); CANNABINOID SCREEN, URINE NEGATIVE (NEGATIVE); COCAINE SCREEN URINE NEGATIVE (NEGATIVE); METHADONE STAT NEGATIVE (NEGATIVE); METHAMPHETAMINE SCREEN URINE S NEGATIVE (NEGATIVE); OPIATE SCREEN URINE NEGATIVE (NEGATIVE); OXYCODONE STAT NEGATIVE (NEGATIVE); PROPOXYPHENE STAT NEGATIVE (NEGATIVE); TRICYCLIC ANTIDEPRESSANTS SCRE NEGATIVE (NEGATIVE)
[2019-12-02 19:28] LABS: CREATINE KINASE MB 0.5 NG/ML (<6.6); TSH (THYROID ANALYZER) 0.98 UIU/ML (0.35-4.94)
--- NOTE | 2019-12-02 19:31 | ED General ---
General Chief Complaint: Neurological Problems Stated Complaint: HAD SEIZURE Nursing Triage Note: PT AMBULATE TO ROOM 07 WITH C/O SEIZURE. PT STATES SHE THINKS SHE HAD ANOTHER SEIZURE. PT REPORTS HS OF EPILE[facility]Y. PT REPORTS SHE DID NOT LOSE BOWEL/BLADDER CONTROL AND DID NOT HIT HER HEAD. Nursing Sepsis Screen: No Definite Risk Source of Information: Patient, Old Records History of Present Illness Date Seen by Provider: Dec 02, 2019 Time Seen by Provider: 18:00 Initial Comments PT ARRIVES VIA POV FROM HOME--STATES A FRIEND BROUGHT HER, WHO CURRENTLY IS WATCHING HER CHILD, PER PT. PT STATES "I THINK I HAD ANOTHER SEIZURE" STATES SHE WAS HOLDING HER SON, AND SITTING IN THE CHAIR, AND STATES "I WOKE UP AND HE WAS SITTING ON THE FLOOR AND PLAYING" "I DON'T REMEMBER SITTING IN THE CHAIR" STATES SHE WAS STILL SITTING IN THE CHAIR IN THE SAME POSITION WHEN SHE "WOKE UP" AND DENIES ANY INJURY TO HERSELF. DOES NOT THINK THE CHILD WAS INJURED STATES SHE "DOESN'T REMEMBER WHAT HAPPENED" BUT STATES IT HAPPENED ABOUT AN HOUR AGO. NO ONE ELSE WAS IN THE HOME AT THE TIME, OTHER THAN HER CHILD. PT HAS NO COMPLAINTS OF ANY KIND. NO LOSS OF BOWEL OR BLADDER CONTROL NO HEADACHE OR BODY ACHES NO FEVER OR RECENT ILLNESS PT HAS REPORTED HISTORY OF SEIZURES AND HAS BEEN PRESCRIBED [place] DENIES ANY RECENT MISSED DOSES OR CHANGES IN DOSE STATES SHE HAS AT LEAST ONE SEIZURE A MONTH, AND THIS IS NO DIFFERENT IN ANY WAY STATES SHE HAS NEVER BEEN TO NEUROLOGIST, BUT CLAIMS SHE HAS ONE IN JANUARY, BUT DOES NOT KNOW NAME OF DR OR WHERE SHE IS SUPPOSED TO SEE HIM/HER. DOES PROVIDE THE NAME OF A DR FLORENTINO IN [place], WITH [facility], ON HER PHONE. PT ALSO DOES NOT KNOW HOW OLD HER CHILD IS OR WHEN THE CHILD WAS BORN--HAS NO IDEA EVEN THE MONTH OR YEAR THAT HE WAS BORN PT IS , AND DOES NOT HAVE CUSTODY OF ANY OF HER OTHER CHILDREN--2ND CHILD AFTER . ALL OTHER CHILDREN HAVE BEEN PERMANENTLY REMOVED FROM THE HOME AND PLACED INTO [facility], ALL THIS WAS PRIOR TO THE OF HER LAST CHILD. PER OLD RECORDS, SHE DELIVERED 05/03/19 VIA , LAST DELIVERY PRIOR TO T [facility] WAS 04/20/18 AND THE ONE PRIOR TO THAT WAS 04/20/16. /BOYFRIEND IS IN CORRECTION AND HAS BEEN FOR A LONG TIME PT LIVES BY HERSELF, DESPITE BEING ADVISED ON MULTIPLE PREVIOUS VISITS HERE THAT SHE SHOULD NOT BE LIVING ALONE WITH HER CHILD. THIS CONCERN HAS BEEN DISCUSSED WITH DR. DU ON PREVIOUS ER VISIT, AND HE HAS REPEATEDLY HAS VOICED HIS CONCERNS WITH [facility] REGARDING THIS ISSUE, AND HAD BEEN UNDER THE IMPRESSION THAT CHILD WAS TO HAVE BEEN REMOVED FROM THE HOME AT , BUT THIS DID NOT OCCUR. HE HAS STATED THAT A MALE NEIGHBOR/OLDER MALE CHECKS ON HER, AND SHE HAS A "WORKER" THAT CHECKS ON HER WELL. PT WITH MULTIPLE VISITS FOR REPORTED SEIZURES, WELL VARIOUS OTHER COMPLAINTS PCP: DR. DU Allergies and Home Medications Allergies Coded Allergies: No Known Drug Allergies (Unverified , 08/14/15) Home Medications Amoxicillin 500 Mg Capsule, 1,000 MG PO BID Prescribed by: JING MANCILLA on 10/03/197 Levetiracetam 500 Mg Tablet, 500 MG PO BID Prescribed by: JING MANCILLA on 11/12/16 0658 Prednisone 20 Mg Tab, 40 MG PO DAILY Prescribed by: TAMERA PUENTE on 08/01/19 1510 Patient Home Medication List Home Medication List Reviewed: Yes Review of Systems Review of Systems Constitutional: no symptoms reported EENTM: no symptoms reported Respiratory: no symptoms reported Cardiovascular: no symptoms reported Gastrointestinal: no symptoms reported : No LMP: Nov 17, 2019 (NO CONTROL) Musculoskeletal: no symptoms reported Skin: no symptoms reported Psychiatric/Neurological: See HPI Hematologic/Lymphatic: No Symptoms Reported Immunological/Allergic: no symptoms reported Past Dacqwyq-Gaczql-Ohdygp Hx Past Med/Social Hx: Reviewed and Corrections made Patient Social History Alcohol Use: Denies Use Recreational Drug Use: Yes (DENIES BUT UDS + FOR AMPHETAMINES ) Drug of Choice: DENIES BUT UDS + FOR AMPHETAMINES Smoking Status: Current Everyday Smoker (1 PPD) Type Used: Cigarettes (1 PPD) 2nd Hand Smoke Exposure: No Recent Foreign Travel: No Contact w/Someone Who Travel: No Recent Infectious Disease Expo: No Recent Hopitalizations: No Physical Abuse: No Sexual Abuse: No Mistreated: No Fear: No Immunizations Up To Date Tetanus Booster (TDap): Unknown PED Vaccines UTD: Yes Seasonal Allergies Seasonal Allergies: No Past Medical History Surgeries: Yes ( 05/03/19) Section Respiratory: No Cardiac: Yes Hypertension Neurological: Yes Seizure Disorder Reproductive Disorders: No Genitourinary: No Gastrointestinal: No Musculoskeletal: No Endocrine: No HEENT: Yes (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 No Pertinent Family Hx Physical Exam Vital Signs Vital Signs - First Documented 12/02/19 12/02/19 18:03 19:58 Temp 38.2 Pulse 78 Resp 19 B/P (MAP) 146/96 (113) Pulse Ox 99 O2 Delivery Room Air Capillary Refill : Less Than 3 Seconds Height, Weight, BMI Height: 5'3.00" Weight: 120lbs. 0.0oz. 54.114362av; 21.00 BMI Method:Stated General Appearance: No Apparent Distress, WD/WN, Other (DOES NOT APPEAR POST ICTAL, DOES NOT APPEAR ILL OR TO BE IN ANY DISCOMFORT OR DISTRESS. ) HEENT: PERRL/EOMI, TMs Normal, Pharynx Normal, Other (EXTENSIVE DENTAL DECAY --ALL TEETH DECAYED DOWN TO GUMS--APPEARANCE OF "METH MOUTH". NO ORAL INJURY OR EVIDENCE OF ABSCESS. 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 Norm as Tested, Other (SMILING, TALKATIVE) Skin: Normal Color, Warm/Dry, Tattoos/Piercings Progress/Results/Core Measures Suspected Sepsis Recent Fever Within 48 Hours: No Infection Criteria Present: None New/Unexplained Altered Menta: No Sepsis Screen: No Definite Risk SIRS Temperature: Pulse: 78 Respiratory Rate: 19 Laboratory Tests 12/02/19 18:27: White Blood Count 9.0 Blood Pressure 146 /96 Mean: 113 Laboratory Tests 12/02/19 18:27: Creatinine 0.71, INR Comment 1.1, Platelet Count 343, Total Bilirubin 0.2 Results/Orders Lab Results Laboratory Tests Test 12/02/19 18:27 12/02/19 18:39 Range/Units White Blood Count 9.0 4.3-11.0 10^3/uL Red Blood Count 4.56 4.35-5.85 10^6/uL Hemoglobin 10.5 L 11.5-16.0 G/DL Hematocrit 34 L 35-52 % Mean Corpuscular Volume 74 L 80-99 FL Mean Corpuscular Hemoglobin 23 L 25-34 PG Mean Corpuscular Hemoglobin Concent 31 L 32-36 G/DL Red Cell Distribution Width 15.0 H 10.0-14.5 % Platelet Count 343 130-400 10^3/uL Mean Platelet Volume 11.2 H 7.4-10.4 FL Neutrophils (%) (Auto) 79 H 42-75 % Lymphocytes (%) (Auto) 14 12-44 % Monocytes (%) (Auto) 6 0-12 % Eosinophils (%) (Auto) 1 0-10 % Basophils (%) (Auto) 0 0-10 % Neutrophils # (Auto) 7.1 1.8-7.8 X 10^3 Lymphocytes # (Auto) 1.3 1.0-4.0 X 10^3 Monocytes # (Auto) 0.6 0.0-1.0 X 10^3 Eosinophils # (Auto) 0.1 0.0-0.3 10^3/uL Basophils # (Auto) 0.0 0.0-0.1 10^3/uL Prothrombin Time 14.4 12.2-14.7 SEC INR Comment 1.1 0.8-1.4 Activated Partial Thromboplast Time 25 24-35 SEC Sodium Level 142 135-145 MMOL/L Potassium Level 4.2 3.6-5.0 MMOL/L Chloride Level 110 H 98-107 MMOL/L Carbon Dioxide Level 18 L 21-32 MMOL/L Anion Gap 14 5-14 MMOL/L Blood Urea Nitrogen 11 7-18 MG/DL Creatinine 0.71 0.60-1.30 MG/DL Estimat Glomerular Filtration Rate > 60 BUN/Creatinine Ratio 15 Glucose Level 93 70-105 MG/DL Calcium Level 9.1 8.5-10.1 MG/DL Corrected Calcium 8.7 8.5-10.1 MG/DL Magnesium Level 2.0 1.6-2.4 MG/DL Total Bilirubin 0.2 0.1-1.0 MG/DL Aspartate Amino Transf (AST/SGOT) 18 5-34 U/L Alanine Aminotransferase (ALT/SGPT) 13 0-55 U/L Alkaline Phosphatase 60 40-136 U/L Total Creatine Kinase 81 29-168 U/L Creatine Kinase MB 0.5 <6.6 NG/ML Myoglobin 45.5 10.0-92.0 NG/ML Total Protein 7.5 6.4-8.2 GM/DL Albumin 4.5 3.2-4.5 GM/DL TSH Galax Testing 0.98 0.35-4.94 UIU/ML Salicylates Level < 5.0 L 5.0-20.0 MG/DL Acetaminophen Level < 10 L 10-30 UG/ML Serum Alcohol < 10 <10 MG/DL Urine Color YELLOW Urine Clarity CLEAR Urine pH 6.5 5-9 Urine Specific Leslie 1.025 H 1.016-1.022 Urine Protein NEGATIVE NEGATIVE Urine Glucose (UA) NEGATIVE NEGATIVE Urine Ketones NEGATIVE NEGATIVE Urine Nitrite NEGATIVE NEGATIVE Urine Bilirubin NEGATIVE NEGATIVE Urine Urobilinogen 0.2 < = 1.0 MG/DL Urine Leukocyte Esterase NEGATIVE NEGATIVE Urine RBC (Auto) 3+ H NEGATIVE Urine RBC 2-5 H /HPF Urine WBC NONE /HPF Urine Squamous Epithelial Cells 2-5 /HPF Urine Crystals NONE /LPF Urine Bacteria FEW H /HPF Urine Casts NONE /LPF Urine Mucus NEGATIVE /LPF Urine Culture Indicated NO Urine Opiates Screen NEGATIVE NEGATIVE Urine Oxycodone Screen NEGATIVE NEGATIVE Urine Methadone Screen NEGATIVE NEGATIVE Urine Propoxyphene Screen NEGATIVE NEGATIVE Urine Barbiturates Screen NEGATIVE NEGATIVE Ur Tricyclic Antidepressants Screen NEGATIVE NEGATIVE Urine Phencyclidine Screen NEGATIVE NEGATIVE Urine Amphetamines Screen NEGATIVE NEGATIVE Urine Methamphetamines Screen NEGATIVE NEGATIVE Urine Benzodiazepines Screen NEGATIVE NEGATIVE Urine Cocaine Screen NEGATIVE NEGATIVE Urine Cannabinoids Screen NEGATIVE NEGATIVE My Orders Orders - LION SANCHEZ DO Ed Iv/Invasive Line Start (12/02/19 18:02) Urine Bedside (12/02/19 18:02) Monitor-Rhythm Ecg Trace Only (12/02/19 18:02) Acetaminophen (12/02/19 18:02) Alcohol (12/02/19 18:02) Cbc With Automated Diff (12/02/19 18:02) Comprehensive Metabolic Panel (12/02/19 18:02) Creatine Kinase (12/02/19 18:02) Creatine Kinase Mb (12/02/19 18:02) Drug Screen Stat (Urine) (12/02/19 18:02) Magnesium (12/02/19 18:02) Protime With Inr (12/02/19 18:02) Partial Thromboplastin Time (12/02/19 18:02) Salicylate (12/02/19 18:02) Thyroid Analyzer (12/02/19 18:02) Ua Culture If Indicated (12/02/19 18:02) Myoglobin Serum (12/02/19 18:02) Ed Iv/Invasive Line Start (12/02/19 18:02) Lactated Ringers (Lr 1000 Ml Iv Solution (12/02/19 18:02) Medications Given in ED Current Medications Medications Dose Ordered Sig/Miguel Route Start Time Stop Time Status Last Admin Dose Admin Lactated Ringer's 1,000 ml @ 0 mls/hr Q0M ONCE IV 12/02/19 18:02 12/02/19 18:05 DC 12/02/19 18:33 999 MLS/HR Vital Signs/I&O 12/02/19 12/02/19 18:03 19:58 Temp 38.2 Pulse 78 88 Resp 19 19 B/P (MAP) 146/96 (113) 133/74 Pulse Ox 99 O2 Delivery Room Air Room Air Capillary Refill : Less Than 3 Seconds Blood Pressure Mean: 113 Progress Note : Progress Note PT ON PHONE--TALKING/TEXTING FOR MOST OF STAY. UNEVENTFUL ER STAY AGAIN, AND REPEATEDLY STRESSED THE IMPORTANCE THAT SHE IS NOT TO BE ALONE WITH HER CHILD AT ANY TIME--EVER PT STATES HER BOYFRIEND HAS BEEN IN CORRECTION/PENITENTIARY, AND WILL BE IN CORRECTION/PENITENTIARY FOR UNKNOWN LENGTH OF TIME. PT STATES THERE IS A MALE FRIEND WHO CAN STAY WITH HER. ECG Initial ECG Impression Date: Dec 02, 2019 Initial ECG Impression Time: 18:14 Initial ECG Rate: 71 Initial ECG Rhythm: Normal Sinus Departure Impression Primary Impression: POSIBLE SEIZURE--SELF REPORTED Disposition: 01 HOME, SELF-CARE Condition: Stable Departure-Patient Inst. Referrals: BRYAN DU MD (PCP/Family) Primary Care Physician Patient Instructions: Seizures, Adult (DC) Add. Discharge Instructions: LOTS OF CLEAR LIQUIDS TYLENOL NEEDED FOR PAIN OR FEVER TAKE YOUR MEDICATIONS PRESCRIBED NO DRIVING!!! DO NOT BE ALONE WITH YOUR CHILD AT ANY TIME!!!! FOLLOW UP WITH YOUR DR NEXT WEEK FOR FURTHER CARE All discharge instructions reviewed with patient and/or family. Voiced understanding. LION SANCHEZ DO Dec 02, 2019 19:31
[2019-12-02 19:58] VITALS: BP 133/74
== END 2019-12-02 19:59 | disposition home or self-care (01) ==
LOC: EDUNIT# 17:48 → ER 17:49
DX: G40.909 Epilepsy, unspecified, not intractable, without status epilepticus (principal); I10 Essential (primary) hypertension; F17.210 Nicotine dependence, cigarettes, uncomplicated; Z79.52 Long term (current) use of systemic steroids
CPT/HCPCS: 36415; 80053; 80306; 80320; 80329; 81000; 82550; 82553; 83735; 83874; 84443; 84703; 85025; 85610; 85730; 93041